=== PATIENT | female | born 1965 | race Caucasian/White ===

== ENCOUNTER 2023-01-04 09:40 | Emergency (ER) | payer BC, SELFPAY ==
[2023-01-04 09:47] VITALS: BP 146/98; PULSE 69; RESP 20; TEMP 36.7; O2SAT 97; BMI 40.2
--- NOTE | 2023-01-04 09:53 | ED.ABDPAIN1 ---
HPI - Abdominal Pain General Chief Complaint: Abdominal Pain Stated Complaint: LOWER ABDOMINAL PAIN RADIATING TO BACK Time Seen by Provider: 01/04/23 09:49 Source: patient Mode of arrival: walk-in History of Present Illness HPI narrative: 57-year-old female presents for low abdominal pain. She had five bowel movements yesterday, no diarrhea. She does not have dysuria or hematuria. The pain started yesterday and it's been getting worse. No fever or vomiting or diarrhea. The pain is moderate. Related Data Home Medications Medication Instructions Recorded Confirmed atorvastatin 80 mg tablet mg 01/04/23 levothyroxine 137 mcg tablet mcg 01/04/23 lorazepam 0.5 mg tablet mg 01/04/23 paroxetine HCl 40 mg tablet mg PO 01/04/23 ropinirole 3 mg tablet mg 01/04/23 Previous Rx's Medication Instructions Recorded ciprofloxacin HCl 500 mg tablet 500 mg PO Q12H #20 tabs 01/04/23 (Cipro) metronidazole 500 mg tablet 500 mg PO Q8H #30 tabs 01/04/23 Allergies Allergy/AdvReac Type Severity Reaction Status Date / Time No Known Drug Allergies Allergy Verified 01/04/23 09:47 Review of Systems ROS Narrative A ten point review of systems is negative except as noted above. Exam Narrative Exam Narrative: Nurses note and vital signs reviewed and patient is not hypoxic. General: The patient appears well and in no apparent distress. Skin: Warm, dry, no pallor noted. There is no rash noted. Head: Normocephalic, atraumatic Eye: Normal conjunctiva, no drainage Ears, Nose, Mouth, and Throat: oral mucosa is moist. Nares patent. Cardiovascular: Regular Rate and Rhythm Respiratory: Patient is in no distress, no accessory muscle use, lungs are clear to auscultation, no wheezing, rales or rhonchi Back: non-tender GI: tenderness bilateral in the lower abdomen. Musculoskeletal: The patient has no evidence of calf tenderness, no pitting edema, symmetrical pulses noted bilaterally Neurological: A&O, normal speech Psychiatric: Cooperative Constitutional Vital Signs, click to edit/add: Last Vital Signs Temp 98.0 F 01/04/23 09:47 Pulse 69 01/04/23 09:47 Resp 20 01/04/23 09:47 BP 146/98 H 01/04/23 09:47 Pulse Ox 97 01/04/23 09:47 O2 Del Method Room Air 01/04/23 09:47 Course Vital Signs Vital signs: Vital Signs Temperature 98.0 F 01/04/23 09:47 Pulse Rate 69 01/04/23 09:47 Respiratory Rate 20 01/04/23 09:47 Blood Pressure 146/98 H 01/04/23 09:47 Pulse Oximetry 97 01/04/23 09:47 Oxygen Delivery Method Room Air 01/04/23 09:47 Temperature 98.0 F 01/04/23 09:47 Pulse Rate 69 01/04/23 09:47 Respiratory Rate 20 01/04/23 09:47 Blood Pressure 146/98 H 01/04/23 09:47 Pulse Oximetry 97 01/04/23 09:47 Oxygen Delivery Method Room Air 01/04/23 09:47 MDM - Abdominal Pain MDM Narrative Medical decision making narrative: uncomplicated diverticulitis is identified. She was given IV Cipro and Flagyl here and prescribed same for home. She'll follow-up with her doctor in a week. Treatment diagnosis and follow-up were discussed with the patient. Differential Diagnosis Differential diagnosis: Likely abdominal pain, acute appendicitis, constipation, diverticulitis, gastroenteritis and small bowel obstruction Lab Data Attestation: I reviewed the patient's lab results. Labs: Lab Results 01/04/23 01/04/23 Range/Units 10:10 10:17 WBC 8.0 (4.0-11.0) 10^3/uL RBC 4.02 L (4.20-5.40) 10^6/uL Hgb 12.0 (12.0-16.0) g/dL Hct 35.7 L (36.0-48.0) % MCV 88.8 (81.0-99.0) fL MCH 29.9 (26.7-34.0) pg MCHC 33.6 (29.9-35.2) g/dL RDW 13.2 (11.0-15.0) % Plt Count 312 (150-450) 10^3/uL MPV 9.1 L (9.5-13.5) fL Neut % (Auto) 66.3 (43.0-75.0) % Lymph % (Auto) 26.9 (20.5-60.0) % [place] % (Auto) 4.6 (1.7-12.0) % Eos % (Auto) 1.2 (0.9-7.0) % Baso % (Auto) 0.4 (0.2-2.0) % Neut # (Auto) 5.3 (1.4-6.5) 10^3/uL Lymph # (Auto) 2.2 (1.2-3.8) 10^3/uL [place] # (Auto) 0.4 (0.3-0.8) 10^3/uL Eos # (Auto) 0.1 (0.0-0.7) 10^3/uL Baso # (Auto) 0.0 (0.0-0.1) 10^3/uL Abs Immat Gran (auto) 0.05 H (0.00-0.03) 10^3/uL Imm/Tot Granulo (auto) 0.6 H (0.0-0.5) % Sodium 137 (136-145) mmol/L Potassium 3.9 (3.5-5.1) mmol/L Chloride 103 (98-107) mmol/L Carbon Dioxide 26.2 (21.0-32.0) mmol/L Anion Gap 11.7 BUN 14.0 (7.0-18.0) mg/dL Creatinine 0.68 (0.55-1.02) mg/dL Est GFR ( Amer) >60 (>=60) Est GFR (Non-Af Amer) >60 (>=60) BUN/Creatinine Ratio 20.6 Glucose 101 (74-106) mg/dL Calcium 8.5 (8.5-10.1) mg/dL Urine Color Lt. yellow (YELLOW) Urine Clarity Clear (CLEAR) Urine pH 6.5 (5.0-9.0) Ur Specific [place] 1.010 (1.005-1.025) Urine Protein Negative (NEG/TRACE) mg/dL Urine Glucose (UA) Negative (NEGATIVE) mg/dL Urine Ketones Negative (NEGATIVE) mg/dL Urine Occult Blood Negative (NEGATIVE) Urine Nitrite Negative (NEGATIVE) Urine Bilirubin Negative (NEGATIVE) Urine Urobilinogen 0.2 (0.2-1.0) EU/dL Ur Leukocyte Esterase Negative (NEGATIVE) Urine RBC None seen (0-2) #/HPF Urine WBC None seen (NONE SEEN) #/HPF Ur Squamous Epith Cells Few A (NONE/RARE) #/LPF Urine Bacteria Small A (NONE SEEN) #/HPF Urine Mucus None seen (NONE SEEN) Imaging Data CT scan - abdomen: Radiologist's impression: Procedure: CT abdomen pelvis w con CT abdomen and pelvis with contrast CLINICAL: low abd pain COMPARISON: None. TECHNIQUE: Computed tomography of the abdomen and pelvis was performed following the uneventful administration of 100 cc Omnipaque 300 intravenous contrast. Dose reduction: mA and/or kV are adjusted by automated exposure control software based on patient size. FINDINGS: There is a short segment of focal inflammation involving the sigmoid to the left lower quadrant (image 96 series 3) with background of moderate to severe diverticulosis, compatible with acute diverticulitis. Proximal diverticular disease also noted. There is moderate colonic stool burden. Small bowel is normal. Stomach is also grossly normal. There is a normal appendix. Liver, spleen, pancreas, and gallbladder is normal in appearance. No radiopaque gallstones. Adrenal glands are normal. Kidneys are symmetrical and normal in appearance, with note made of a 2 cm cyst in the anterior right kidney. Bladder is normal. Uterus identified. No adnexal abnormality. There is atherosclerosis of the abdominal aorta. Few pelvic phleboliths. Anterior and posterior spinal fusion with instrumentation at L4-L5. There are degenerative spurs of the thoracolumbar spine. No compression fracture. No listhesis. Tiny fat-containing umbilical hernia. Limited imaging of lower chest demonstrates mild right middle lobe and lingular atelectasis with otherwise clear lung bases. Heart size is normal. IMPRESSION: 1. Short segment of acute proximal sigmoid diverticulitis, uncomplicated. No abscess or free air. Moderate colonic stool burden with mild diverticular disease in the proximal colon. 2. Normal appendix. 3. 2 cm left renal cysts, with otherwise normal appearance of the solid organs of the abdomen. 4. Postsurgical changes with anterior and posterior spinal fusion L4-L5. Additional incidental findings as described. Electronically authenticated by: RACQUEL YIN Date: 01/04/2023 11:41 Discharge Plan Discharge Chief Complaint: Abdominal Pain Clinical Impression: Diverticulitis Patient Disposition: Home, Self-Care Time of Disposition Decision: 12:48 Condition: Good Mode of Transportation: Private Vehicle Prescriptions / Home Meds: New ciprofloxacin HCl [Cipro] 500 mg tablet 500 mg PO Q12H Qty: 20 0RF metronidazole 500 mg tablet 500 mg PO Q8H Qty: 30 0RF No Action ropinirole 3 mg tablet lorazepam 0.5 mg tablet paroxetine HCl 40 mg tablet PO levothyroxine 137 mcg tablet atorvastatin 80 mg tablet Instructions: Diverticulitis (ED), Diverticulitis Diet (ED) Additional Instructions: see your doctor in one week, return to Emergency Department for worsening symptoms Stand Alone Forms: Portal Instructions Referrals: TOBI JOHNSON [Primary Care Provider] - 1 week
[2023-01-04 10:36] LABS: Anion Gap 11.7; BUN Creatinine Ratio 20.6; Calcium 8.5 mg/dL (8.5-10.1); Carbon Dioxide 26.2 mmol/L (21.0-32.0); Chloride 103 mmol/L (98-107); Estimated GFR (African America >60 (>=60); Estimated GFR (Non-African Ame >60 (>=60); Glucose 101 mg/dL (74-106); Potassium 3.9 mmol/L (3.5-5.1); Sodium 137 mmol/L (136-145)
[2023-01-04 10:37] LABS: Basophils Percent Auto 0.4 % (0.2-2.0); Eosinophils Absolute Auto 0.1 10^3/uL (0.0-0.7); Eosinophils Percent Auto 1.2 % (0.9-7.0); Hematocrit 35.7 % (36.0-48.0); Immature Granulocytes Abs Auto 0.05 10^3/uL (0.00-0.03); Immature Granulocytes Pct Auto 0.6 % (0.0-0.5); Lymphocytes Absolute Auto 2.2 10^3/uL (1.2-3.8); Lymphocytes Percent Auto 26.9 % (20.5-60.0); Mean Corpuscular HGB Conc 33.6 g/dL (29.9-35.2); Mean Corpuscular Hemoglobin 29.9 pg (26.7-34.0); Mean Corpuscular Volume 88.8 fL (81.0-99.0); Mean Platelet Volume 9.1 fL (9.5-13.5); Monocytes Absolute Auto 0.4 10^3/uL (0.3-0.8); Monocytes Percent Auto 4.6 % (1.7-12.0); Neutrophils Absolute Auto 5.3 10^3/uL (1.4-6.5); Neutrophils Percent Auto 66.3 % (43.0-75.0); Platelet Count 312 10^3/uL (150-450); Red Blood Count 4.02 10^6/uL (4.20-5.40); Red Cell Distribution Width 13.2 % (11.0-15.0)
[2023-01-04 10:39] LABS: Bilirubin Urine NEGATIVE (NEGATIVE); Blood Urine NEGATIVE (NEGATIVE); Clarity Urine CLEAR (CLEAR); Color Urine LT. YELLOW (YELLOW); Glucose Urine UA NEGATIVE (NEGATIVE); Ketones Urine NEGATIVE (NEGATIVE); Leukocyte Esterase Urine NEGATIVE (NEGATIVE); Nitrite Urine NEGATIVE (NEGATIVE); Protein Urine NEGATIVE (NEG/TRACE); Urobilinogen Urine 0.2 EU/dL (0.2-1.0); pH Urine 6.5 (5.0-9.0)
[2023-01-04 10:49] LABS: Bacteria Urine SMALL #/HPF (NONE SEEN); Mucus Urine NONE SEEN (NONE SEEN); RBC Urine NONE SEEN #/HPF (0-2); Squamous Epithelial Cell Urine FEW #/LPF (NONE/RARE); WBC Urine NONE SEEN #/HPF (NONE SEEN)
[2023-01-04] MEDS: METRONIDAZOLE/SODIUM CHLORIDE 500 MG/100 ML PREMIX 100 MG IV (12:01)
[2023-01-04] MEDS: CIPROFLOXACIN IN 5 % DEXTROSE 400 MG/200 ML PIGGYBACK 200 MG IV (13:05)
[2023-01-04 13:07] VITALS: BP 121/85; PULSE 73; RESP 14; TEMP 37.2; O2SAT 98
== END 2023-01-04 14:15 | disposition home or self-care (01) ==
PROVIDERS: Emergency Provider Emergency Medicine; PCP Nurse Practitioner Family
DX: K57.32 Diverticulitis of large intestine without perforation or abscess without bleeding (principal); Z79.899 Other long term (current) drug therapy; Z79.890 Hormone replacement therapy
CPT/HCPCS: 36415; 74177; 80048; 81001; 85025; 96365; 96367; 99285; Q9967

== ENCOUNTER 2024-07-10 22:16 | Emergency (ER) | payer BC, SELFPAY ==
[2024-07-10 22:19] VITALS: BP 148/72; PULSE 93; TEMP 37.8; O2SAT 99; BMI 47.6
--- NOTE | 2024-07-10 22:51 | ED_ITS ---
HPI - Abdominal Pain General Chief Complaint: Abdominal Pain Stated Complaint: other Time Seen by Provider: 07/10/24 22:22 Source: patient Mode of arrival: walk-in Limitations: no limitations History of Present Illness HPI narrative: This 58-year-old female presents for evaluation of left lower quadrant abdominal pain with abdominal distention and then sensation that everything is falling out of her uterus and rectum. The patient states she was diagnosed with diverticulitis in the past. She started having some abdominal pain last Sunday and her symptoms improved until yesterday when her pain worsened. She is having soft stools but denies any blood in her stool. She has urinary frequency and urgency. She denies any flank pain. Is no chest pain or shortness of breath. She was noted to have a low-grade fever upon arrival. Related Data Home Medications ?Medication ?Instructions ?Recorded ?Confirmed levothyroxine 137 mcg tablet 137 mcg PO DAILY 01/04/23 07/10/24 paroxetine HCl 40 mg tablet 40 mg PO DAILY 01/04/23 07/10/24 ropinirole 3 mg tablet 3 mg PO DAILY 01/04/23 07/10/24 Allergies Allergy/AdvReac Type Severity Reaction Status Date / Time No Known Drug Allergies Allergy Verified 07/10/24 22:23 Review of Systems ROS Status of ROS 10 or more systems reviewed and unremark able except as noted in history and below PFSH PFSH Social History Little interest or pleasure in doing things: not at all Feeling down, depressed, or hopeless: not at all Exam Narrative Exam Narrative: Vital signs and Nursing Notes reviewed: Patient has a low-grade fever at 100.1, she has a normal pulse, blood pressure is elevated 148/72, she is not hypoxic with pulse ox of 99% on room air General: Awake, alert, oriented, nontoxic but uncomfortable appearing ov erweight female lying on her right side, no respiratory distress HEENT: Normocephalic atraumatic, mucous membranes are moist and pink, eyes are clear, normal conjunctiva, vision is grossly intact Neck: Supple, no meningeal signs Chest: Lungs are clear to auscultation with good air entry, there is no wheezing rhonchi or rales appreciated no accessory muscle use, patient is speaking in com plete sentences-no chest wall tenderness to palpation CVS: Regular rate and rhythm S1-S2, no murmurs rubs or gallops, pulses are brisk and equal bilaterally ABD: Obese, soft, diffusely tender, localizes to the right lower quadrant and more so to the left lower quadrant with voluntary guarding Extremities: Moving all extremities, no lower extremity tenderness or swelling noted, negative Homans' sign, pulses are brisk and equal bilaterally Skin: Normal in appearance without rash,pallor, petechiae or purpura Neuro: No focal deficits Constitutional Vital Signs, click to edit/add: Last Vital Signs Temp 98.8 F 07/11/24 00:36 Pulse 93 H 07/11/24 00:36 Resp 18 07/11/24 00:36 BP 143/82 H 07/11/24 00:36 Pulse Ox 94 L 07/11/24 00:36 O2 Del Method Room Air 07/11/24 00:36 Course Vital Signs Vital signs: Vital Signs Temperature 100.1 F 07/10/24 22:19 Pulse Rate 93 H 07/10/24 22:19 Respiratory Rate 18 07/10/24 22:19 Blood Pressure 148/72 H 07/10/24 22:19 Pulse Oximetry 99 07/10/24 22:19 Oxygen Delivery Method Room Air 07/10/24 22:19 Temperature 98.8 F 07/11/24 00:36 Pulse Rate 93 H 07/11/24 00:36 Respiratory Rate 18 07/11/24 00:36 Blood Pressure 143/82 H 07/11/24 00:36 Pulse Oximetry 94 L 07/11/24 00:36 Oxygen Delivery Method Room Air 07/11/24 00:36 MDM - Abdominal Pain MDM Narrative Medical decision making narrative: This 58-year-old female with a history of diverticulitis in the past presents for evaluation of abdominal pain that started a week ago. She had leftover antibiotics that she started taking when she started having abdominal pain but her pain increased over the course of the last 1 to 2 days. Upon arrival she was extremely uncomfortable with generalized abdominal pain that localized to the right and left lower quadrant. She has noted to have a low-grade fever. ER septic protocol was instituted. An IV was placed and she was medicated with a liter of normal saline, Tylenol for her fever, morphine and Zofran. Routine labs including CBC with differential, comprehensive metabolic profile, 2 sets of blood cultures urinalysis and lactic acid was ordered. She has a normal white count and hemoglobin. Electrolytes are normal with a mild elevation in her BUN and creatinine. Liver function tests are normal. Lactic acid is normal. She was given additional liter of normal saline. Her 30 cc/kg fluid bolus is 1620 based on an ideal body weight of 54 kg. On reevaluation she stated she was feeling better was able to fall asleep after the morphine. CT scan of the abdomen and pelvis with IV contrast. It shows inflammatory changes in the left lower quadrant consistent with acute diverticulitis involving the proximal sigmoid colon with mild sigmoid colon diverticulosis, fatty infiltration of the liver, no acute process seen in the gallbladder spleen pancreas adrenal glands or kidneys. Small midpole left renal cortical cyst. Left colon diverticulosis. Normal appendix, small right and left inguinal hernias containing only fat, no acute process seen in the uterus or bladder. Mild constipation involving the right colon and transverse colon segments. There is no free air or abscess or pneumatosis. No portal venous gas. No bowel or renal obstruction. The results of the patient's labs and CT scan were discussed with her. While awaiting the CAT scan report she was given an additional dose of morphine. She would like to be discharged home. She will be given her first dose of Cipro and Flagyl in the emergency department. She will be discharged home with prescriptions for Cipro and Flagyl to take for the next 10 days as well as Colace and Zofran and Lawrence. She was encouraged to return the emergency department immediately for worsening pain, inability to tolerate her medications or any concerns. Lab Data Labs: Lab Results 07/10/24 07/10/24 Range/Units 22:35 23:00 WBC 10.8 (4.0-11.0) 10^3/uL RBC 4.23 (4.20-5.40) 10^6/uL Hgb 12.6 (12.0-16.0) g/dL Hct 37.8 (36.0-48.0) % MCV 89.4 (81.0-99.0) fL MCH 29.8 (26.7-34.0) pg MCHC 33.3 (29.9-35.2) g/dL RDW 13.7 (11.0-15.0) % Plt Count 354 (150-450) 10^3/uL MPV 9.1 L (9.5-13.5) fL Neut % (Auto) 73.6 (43.0-75.0) % Lymph % (Auto) 19.2 L (20.5-60.0) % [place] % (Auto) 4.9 (1.7-12.0) % Eos % (Auto) 1.3 (0.9-7.0) % Baso % (Auto) 0.3 (0.2-2.0) % Neut # (Auto) 7.9 H (1.4-6.5) 10^3/uL Lymph # (Auto) 2.1 (1.2-3.8) 10^3/uL [place] # (Auto) 0.5 (0.3-0.8) 10^3/uL Eos # (Auto) 0.1 (0.0-0.7) 10^3/uL Baso # (Auto) 0.0 (0.0-0.1) 10^3/uL Abs Immat Gran (auto) 0.08 H (0.00-0.03) 10^3/uL Imm/Tot Granulo (auto) 0.7 H (0.0-0.5) % Sodium 141 (136-145) mmol/L Potassium 4.2 (3.5-5.1) mmol/L Chloride 104 (98-107) mmol/L Carbon Dioxide 29.2 (21.0-32.0) mmol/L Anion Gap 12.0 BUN 21.0 H (7.0-18.0) mg/dL Creatinine 1.03 H (0.55-1.02) mg/dL Est GFR ( Amer) >60 (>=60 mL/min/1.73m^2) Est GFR (Non-Af Amer) 55 L (>=60 mL/min/1.73m^2) BUN/Creatinine Ratio 20.4 Glucose 111 H (74-106) mg/dL Lactate 0.8 (0.4-2.0) mmol/L Calcium 8.4 L (8.5-10.1) mg/dL Total Bilirubin 0.2 (0.2-1.0) mg/dL AST 14 L (15-37) U/L ALT 29 (14-59) U/L Alkaline Phosphatase 103 (46-116) U/L Total Protein 6.9 (6.4-8.2) g/dL Albumin 3.4 (3.4-5.0) g/dL Globulin 3.5 g/dL Albumin/Globulin Ratio 1.0 Urine Color Lt. yellow (YELLOW) Urine Clarity Clear (CLEAR) Urine pH 6.0 (5.0-9.0) Ur Specific [place] 1.020 (1.005-1.025) Urine Protein Negative (NEG/TRACE) mg/dL Urine Glucose (UA) Negative (NEGATIVE) mg/dL Urine Ketones Negative (NEGATIVE) mg/dL Urine Occult Blood Negative (NEGATIVE) Urine Nitrite Negative (NEGATIVE) Urine Bilirubin Negative (NEGATIVE) Urine Urobilinogen 0.2 (0.2-1.0) EU/dL Ur Leukocyte Esterase Negative (NEGATIVE) Urine RBC 0-2 (0-2) #/HPF Urine WBC 0-2 A (NONE SEEN) #/HPF Ur Squamous Epith Cells Few A (NONE/RARE) #/LPF Urine Crystals None seen (None Seen) #/HPF Urine Bacteria Trace A (NONE SEEN) #/HPF Urine Casts None seen (NONE SEEN) #/LPF Urine Mucus None seen (NONE SEEN) Ur Culture Indicated? No Discharge Plan Discharge Chief Complaint: Abdominal Pain Clinical Impression: Diverticulitis Patient Disposition: Home, Self-Care Time of Disposition Decision: 02:02 Condition: Good Prescriptions / Home Meds: No Action ropinirole 3 mg tablet 3 mg PO DAILY paroxetine HCl 40 mg tablet 40 mg PO DAILY levothyroxine 137 mcg tablet 137 mcg PO DAILY Print Language: Welsh Instructions: Diverticulitis (ED), Diverticulitis Diet (ED) Referrals: TOBI JOHNSON [Primary Care Provider] - 1 week
[2024-07-10 22:56] LABS: Bilirubin Urine NEGATIVE (NEGATIVE); Blood Urine NEGATIVE (NEGATIVE); Clarity Urine CLEAR (CLEAR); Color Urine LT. YELLOW (YELLOW); Glucose Urine UA NEGATIVE (NEGATIVE); Ketones Urine NEGATIVE (NEGATIVE); Leukocyte Esterase Urine NEGATIVE (NEGATIVE); Nitrite Urine NEGATIVE (NEGATIVE); Protein Urine NEGATIVE (NEG/TRACE); Urobilinogen Urine 0.2 EU/dL (0.2-1.0)
[2024-07-10 23:02] LABS: WBC Urine 0-2 #/HPF (NONE SEEN)
[2024-07-10 23:03] LABS: Bacteria Urine TRACE #/HPF (NONE SEEN); Cast Seen? NONE SEEN #/LPF (NONE SEEN); Crystals Seen? None Seen #/HPF (None Seen); Mucus Urine NONE SEEN (NONE SEEN); RBC Urine 0-2 #/HPF (0-2); Squamous Epithelial Cell Urine FEW #/LPF (NONE/RARE); Urine Culture Indicated NO
--- NOTE | 2024-07-10 23:12 | PC.NURSE ---
pt to CT via stretcher at this time.
[2024-07-10 23:18] LABS: Basophils Percent Auto 0.3 % (0.2-2.0); Eosinophils Absolute Auto 0.1 10^3/uL (0.0-0.7); Eosinophils Percent Auto 1.3 % (0.9-7.0); Hematocrit 37.8 % (36.0-48.0); Hemoglobin 12.6 g/dL (12.0-16.0); Immature Granulocytes Abs Auto 0.08 10^3/uL (0.00-0.03); Immature Granulocytes Pct Auto 0.7 % (0.0-0.5); Lymphocytes Absolute Auto 2.1 10^3/uL (1.2-3.8); Lymphocytes Percent Auto 19.2 % (20.5-60.0); Mean Corpuscular HGB Conc 33.3 g/dL (29.9-35.2); Mean Corpuscular Hemoglobin 29.8 pg (26.7-34.0); Mean Corpuscular Volume 89.4 fL (81.0-99.0); Mean Platelet Volume 9.1 fL (9.5-13.5); Monocytes Absolute Auto 0.5 10^3/uL (0.3-0.8); Monocytes Percent Auto 4.9 % (1.7-12.0); Neutrophils Absolute Auto 7.9 10^3/uL (1.4-6.5); Neutrophils Percent Auto 73.6 % (43.0-75.0); Platelet Count 354 10^3/uL (150-450); Red Blood Count 4.23 10^6/uL (4.20-5.40); Red Cell Distribution Width 13.7 % (11.0-15.0); White Blood Count 10.8 10^3/uL (4.0-11.0)
[2024-07-10 23:33] LABS: Alanine Aminotransferase 29 U/L (14-59); Albumin Level 3.4 g/dL (3.4-5.0); Alkaline Phosphatase 103 U/L (46-116); Aspartate Amino Transferase 14 U/L (15-37); BUN Creatinine Ratio 20.4; Bilirubin Total 0.2 mg/dL (0.2-1.0); Calcium 8.4 mg/dL (8.5-10.1); Carbon Dioxide 29.2 mmol/L (21.0-32.0); Chloride 104 mmol/L (98-107); Estimated GFR (African America >60 (>=60 mL/min/1.73m^2); Estimated GFR (Non-African Ame 55 (>=60 mL/min/1.73m^2); Globulin 3.5 g/dL; Glucose 111 mg/dL (74-106); Potassium 4.2 mmol/L (3.5-5.1); Sodium 141 mmol/L (136-145); Total Protein 6.9 g/dL (6.4-8.2)
[2024-07-10 23:35] LABS: Lactate/Lactic Acid 0.8 mmol/L (0.4-2.0)
[2024-07-10] MEDS: 0.9 % SODIUM CHLORIDE 1,000 ML 999 ML IV (23:41)
[2024-07-10] MEDS: ACETAMINOPHEN 325 MG TABLET 650 MG PO (23:43)
[2024-07-10] MEDS: ONDANSETRON PF 4 MG/2 ML VIAL IV (23:44)
[2024-07-10] MEDS: MORPHINE SULFATE 4 MG/ML VIAL IV (23:46)
[2024-07-10 23:59] VITALS: O2SAT 97
[2024-07-11 00:36] VITALS: BP 143/82; PULSE 93; TEMP 37.1; O2SAT 94
[2024-07-11] MEDS: 0.9 % SODIUM CHLORIDE 1,000 ML 1000 ML IV (00:48)
[2024-07-11] MEDS: MORPHINE SULFATE 4 MG/ML VIAL IV (01:47)
[2024-07-11] MEDS: METRONIDAZOLE/SODIUM CHLORIDE 500 MG/100 ML PREMIX 100 MG IV (02:13)
[2024-07-11] MEDS: CIPROFLOXACIN IN 5 % DEXTROSE 400 MG/200 ML PREMIX 200 MG IV (02:14)
--- NOTE | 2024-07-12 13:44 | PC.NURSE ---
Patient called ER stating that medications are causing itching from head to toe. Patient was started on Flagyl and Cipro on 07/11. Dr. Lewis requested patient to stop taking both antibiotics and Augmentin was ordered. Patient states understanding and knows to come to ER if symptoms worsen.
== END 2024-07-11 03:52 | disposition home or self-care (01) ==
PROVIDERS: Emergency Provider Emergency Medicine; PCP Nurse Practitioner Family
DX: K57.32 Diverticulitis of large intestine without perforation or abscess without bleeding (principal); R50.9 Fever, unspecified
CPT/HCPCS: 36415; 74177; 80053; 81001; 83605; 85025; 87040; 96365; 96368; 96375; 96376; 99284; J0744; J1836; J2270; J2405; Q9967

== ENCOUNTER 2024-08-27 07:04 | Emergency (ER) | payer BC, SELFPAY ==
--- OUTSIDE RECORDS SUMMARY | 2024-08-26 12:11 | XMS_ITS | Encounter Summary ---
Author Organization [facility] s tem Address [id number] [address] [place] [address] Care Team Providers Care Molder Closed Molds Name Role Phone Starr Solorio APRN-BAG MAKER Primary Care Provider + Reason for Visit * Reason Comments Abdominal Pain H.o of diverticuliti s. Started Sunday morning. Constipated. C/o pain. No nausea or diarrhea. Encounter Details Date Type Department Care Team (Late st Contact Info) Description 08/26/2024 12:11 PM EDT - 08/26/2024 1:43 PM EDT Emergency [facility] - Emergency [address] [place] [address] Discharge Disposition: Left Without Treatment Social History Tobacco Use Types Packs/Day Years Used Date Smoking Tobacco: Former Cigarettes Vaping/E-cigarettes Smokeless Tobacco: Never Alcohol Use Standard Drinks/Week Comments Never 0 (1 standard drink = 0.6 oz pur e alcohol) PHQ-2 Answer Date Recorded Total Score 0 07/30/2024 Childcare Answer Date Recorded Childcare Unknown 09/04/2018 Employment Answer Date Recorded Employment Unknown 09/04/2018 Hunger Screening Answer Date Recorded Within the past 12 months we worried whether our food would run out before we got money to buy more. Never True 08/26/2024 Within the past 12 months th e food we bought just didn't last and we didn't have money to get more. Never True 08/26/2024 Purpose - Life Answer Date Recorded Purpose and direction in life Unknown Comments Unknown Sex and Gender Information Value Date Recorded Sex Assigned at Not on file Legal Sex Female 4:48 PM EST Gender Identity Not on file Sexual Orientation Not on file documented as of this encounter Last Filed Vital Signs Vital Sign Reading Time Taken Comments Blood Pressure 164/108 08/26/2024 12:18 PM EDT Pulse 98 08/26/2024 12:17 PM EDT Temperature 37.2 C (99 F) 08/26/2024 12:17 PM EDT Respiratory Rate 16 08/26/2024 12:17 PM EDT Oxygen Saturation 99% 08/26/2024 12:17 PM EDT Inhaled Oxygen Concentration - - Weight 116.6 kg (257 lb) 08/26/2024 12:17 PM EDT Height 157.5 cm (5' 2 ) 08/26/2024 12:17 PM EDT Body Mass Index 47.01 08/26/2024 12:17 PM EDT documented in this encounter Medications at Time of Discharge atorvastatin (LIPITOR) 20 mg tablet Take 1 tablet (20 mg total) by mouth in the morning. 90 tablet 1 06/26/2024 brompheniramine-ps eudoeph-DM 2-30-10 mg/5 mL syrupIndications:A cute cough Take 5 mL by mouth 4 (four) times a day as needed for allergies. 120 mL 07/30/2024 levothyroxine (SYNTHROID, LEVOTHROID) 175 MCG tablet LORazepam (ATIVAN) 0.5 mg tabletIndications: Anxiety Take 1 tablet (0.5 mg total) by mouth daily as needed for anxiety. 30 tablet 06/19/2024 methylPREDNISolone (MEDROL, FLAKO,) 4 mg tabletIndications: Upper respiratory tract infection, unspecified type Take 1 tablet (4 mg total) by mouth in the morning. follow package directions. 21 tablet 07/30/2024 PARoxetine (PAXIL) 40 mg tabletIndications: Anxiety disorder, unspecified TAKE 1 TABLET BY MOUTH EVERY DAY IN THE MORNING 90 tablet 1 05/30/2024 rOPINIRole (REQUIP) 3 mg tablet TAKE 1 TABLET BY MOUTH NIGHTLY 90 tablet 1 08/25/2024 documented as of this encounter Plan of Treatment Not on file documented as of this encounter Visit Diagnoses Not on filedocumented in this encounter Additional Health Concerns Assessment Noted Time PHQ-9 Depression Total Score: 0 07/31/19 25 9:59 AM EDT A Body Mass Index follow-up plan has been documented for the patient 07/30/2024 10:31 AM EDT documented as of this encounter Care Teams Molder Closed Molds Relationship Specialty Start Date End Date Starr Solorio, QUENTIN-BAG MAKER [address] [place] [address] PCP - General Internal Medicine 05/17/21 documented as of this encounter
--- OUTSIDE RECORDS SUMMARY | 2024-08-27 07:07 | XMS_ITS | Encounter Summary ---
Author Organization [facility] [employer] Sys [employer] Address [id number] [address] [place] [address] Care Team Providers Care Pipe Inspector Name Role Phone OsminStarr APRN-GAS FITTER APPRENTICE Primary Care Provider + Encounter Details Date Type Department Care Team (Late st Contact Info) Description 07/14/2024 [facility]phone [facility] [address] [address] Emily Hinton CMA Social History Tobacco Use Types Packs/Day Years Used Date Smoking Tobacco: Former Cigarettes Vaping/E-cigarettes Smokeless Tobacco: Never Alcohol Use Standard Drinks/Week Comments Never 0 (1 standard drink = 0.6 oz pur e alcohol) PHQ-2 Answer Date Recorded Total Score 0 06/19/2024 Childcare Answer Date Recorded Childcare Unknown 09/04/2018 Employment Answer Date Recorded Employment Unknown 09/04/2018 Hunger Screening Answer Date Recorded Within the past 12 months we worried whether our food would run out before we got money to buy more. Never True 06/19/2024 Within the past 12 months th e food we bought just didn't last and we didn't have money to get more. Never True 06/19/2024 Purpose - Life Answer Date Recorded Purpose and direction in life Unknown Comments Unknown Sex and Gender Information Value Date Recorded Sex Assigned at Not on file Legal Sex Female 4:48 PM EST Gender Identity Not on file Sexual Orientation Not on file documented as of this encounter Miscellaneous Notes * Telephone Encounter - Emily Hinton CMA - 07/14/2024 10:19 AM EDT Patient called states she had a allergic reaction to some antibiotics that she got put on from [facility] this past Sunday.They gave her another antibiotic since and now has developed another different kind of rash. Could you send her in maybe some cream to put on the rash. I did book her a follow up visit with you on the 24 at 1500. Pharmacy is listed and correct. * Telephone Encounter - DALLAS Dyson - 07/14/2024 10:19 AM EDT She needs to be seen for a rash - I cannot diagnose through mychart. She can see another provider if can get her in before if needed. * Telephone Encounter - Emily Hinton CMA - 07/14/2024 10:19 AM EDT I called pt she is doing better. She will keep follow up appt with you on . documented in this encounter Plan of Treatment Not on file documented as of this encounter Visit Diagnoses Not on filedocumented in this encounter Additional Health Concerns Assessment Noted Time PHQ-9 Depression Total Score: 0 06/20/19 25 8:41 AM EDT A Body Mass Index follow-up plan has been documented for the patient 10/20/2022 12:37 PM EDT documented as of this encounter Care Teams Pipe Inspector Relationship Specialty Start Date End Date Starr Solorio APRN-CNP [address] [place] [address] PCP - General Internal Medicine 05/17/21 documented as of this encounter
--- OUTSIDE RECORDS SUMMARY | 2024-08-27 07:07 | XMS_ITS | Clinical Summary ---
Author Organization [facility] Healthcare Address [address] [place] [address] Care Team Providers Care Pillar Worker Name Role Phone Starr Solorio MD Unavailable Bert Lopez MD Primary Care Provider [phone] Allergies No known active allergies Medications levothyroxine (Synthroid, Levoxyl) 175 MCG tablet Active PARoxetine (Paxil) 40 MG tablet Take 1 tablet by mouth in the morning. 12/28/2022 Active rOPINIRole (Requip) 3 MG tablet Take 1 tablet by mouth at bedtime 03/20/2023 Active LORazepam (Ativan) 0.5 MG tablet Take 0.5 mg by mouth Daily as needed 03/22/2023 Active Active Problems No known active problems Family History Medical History Relation Name Comments Cancer Father Heart disease Mother Relation Name Status Comments Father Mother Social History Tobacco Use Types Packs/Day Years Used Date Smoking Tobacco: Never Smokeless Tobacco: Never Tobacco Cessation:Counseling Given: Not Answered Comments:PT VAPES Comments Unknown Sex and Gender Information Value Date Recorded Sex Assigned at Not on file Legal Sex Female 6:53 PM EDT Gender Identity Female 06/07/2022 6:53 PM EDT Sexual Orientation Not on file Last Filed Vital Signs Vital Sign Reading Time Taken Comments Blood Pressure 120/88 05/01/2018 12:00 PM EST Pulse - - Temperature - - Respiratory Rate - - Oxygen Saturation - - Inhaled Oxygen Concentration - - Weight 105 kg (232 lb) 05/02/2023 2:27 PM EST Height 157.5 cm (5' 2 ) 05/02/2023 2:27 PM EST Body Mass Index 42.43 05/02/2023 2:27 PM EST Plan of Treatment Not on file Insurance [employer] Care Teams Pillar Worker Relationship Specialty Start Date End Date Bert Lopez MD PCP - General Internal Medicine 04/13/23 Starr Solorio MD Referring Physician Family Medicine 04/13/23
--- OUTSIDE RECORDS SUMMARY | 2024-08-27 07:07 | XMS_ITS | Clinical Summary ---
Author Organization [facility] Address [address] [place] [address] Care Team Providers Care Inserter Promotional Item Name Role Phone Unavailable Primary Care Provider Unavailabl e Social History Tobacco Use Types Packs/Day Years Used Date Smoking Tobacco: Never Assessed Comments Unknown Sex and Gender Information Value Date Recorded Sex Assigned at Not on file Legal Sex Female 3:42 PM EST Gender Identity Not on file Sexual Orientation Not on file Plan of Treatment Not on file Insurance [facility]
--- OUTSIDE RECORDS SUMMARY | 2024-08-27 07:07 | XMS_ITS | Encounter Summary ---
Author Organization [facility] [employer] [facility] Address [id number] [address] [place] [address] Care Team Providers Care Packing Machine Feeder Name Role Phone OsminJefe guerrerobell Briones APRN-FLAT SURFACER JEWEL Primary Care Provider + Encounter Details Date Type Department Care Team (Late st Contact Info) Description 10/20/2022 [facility]phone [facility] [address] [address] Taryn Matt CMA Social History Tobacco Use Types Packs/Day Years Used Date Smoking Tobacco: Former Cigarettes Vaping/E-cigarettes Smokeless Tobacco: Never Alcohol Use Standard Drinks/Week Comments Never 0 (1 standard drink = 0.6 oz pur e alcohol) PHQ-2 Answer Date Recorded Total Score 0 10/20/2022 Childcare Answer Date Recorded Childcare Unknown 09/04/2018 Employment Answer Date Recorded Employment Unknown 09/04/2018 Hunger Screening Answer Date Recorded Within the past 12 months we worried whether our food would run out before we got money to buy more. Never True 10/05/2022 Within the past 12 months th e food we bought just didn't last and we didn't have money to get more. Never True 10/05/2022 Purpose - Life Answer Date Recorded Purpose and direction in life Unknown Comments Unknown Sex and Gender Information Value Date Recorded Sex Assigned at Not on file Legal Sex Female 4:48 PM EST Gender Identity Not on file Sexual Orientation Not on file documented as of this encounter Miscellaneous Notes * Telephone Encounter - Taryn Matt CMA - 10/20/2022 11:03 AM EDT This patient is scheduled for her Screening Colonoscopy on Nov 03 at 12:45pm. Please send her [employer] to [place] she has the coupon and will pay for it if need be. documented in this encounter Plan of Treatment Not on file documented as of this encounter Visit Diagnoses Not on filedocumented in this encounter Additional Health Concerns Assessment Noted Time PHQ-9 Depression Total Score: 0 10/21/19 23 9:47 AM EDT A Body Mass Index follow-up plan has been documented for the patient 10/20/2022 12:37 PM EDT documented as of this encounter Care Teams Packing Machine Feeder Relationship Specialty Start Date End Date Starr Solorio, FIRST ASSISTANT-FLAT SURFACER JEWEL [address] [place] [address] PCP - General Internal Medicine 05/17/21 documented as of this encounter
--- OUTSIDE RECORDS SUMMARY | 2024-08-27 07:07 | XMS_ITS | Encounter Summary ---
Author Organization [facility] Address [id number] [address] [place] [address] Care Team Providers Care Windshield Wiper Repairer Name Role Phone Starr Solorio APRN-MANUFACTURING ENGINEER MACHINING Primary Care Provider + Reason for Visit * Reason Comments Med Refill Encounter Details Date Type Department Care Team (Late st Contact Info) Description 08/24/2024 Refill [facility] Internal Medicine - Family Medicine [address] [place] [address] Starr Solorio APRNMANUFACTURING ENGINEER MACHINING [address] [place] [address] Social History Tobacco Use Types Packs/Day Years [...] on file documented as of this encounter Plan of Treatment Not on file documented as of this encounter Visit Diagnoses Not on filedocumented in this encounter Additional Health Concerns Assessment Noted Time PHQ-9 Depression Total Score: 0 07/31/19 25 9:59 AM EDT A Body Mass Index follow-up plan has been documented for the patient 07/30/2024 10:31 AM EDT documented as of this encounter Care Teams Windshield Wiper Repairer Relationship Specialty Start Date End Date Starr Solorio, IGNITION MECHANIC-MANUFACTURING ENGINEER MACHINING [address] [place] [address] PCP - General Internal Medicine 05/17/21 documented as of this encounter
--- OUTSIDE RECORDS SUMMARY | 2024-08-27 07:07 | XMS_ITS | Encounter Summary ---
Author Organization [facility] Address [facility] [id number] [address] [place] [address] Care Team Providers Care Cook Frozen Dessert Name Role Phone Starr Solorio APRN-NATURAL RESOURCES SPECIALIST Primary Care Provider + Encounter Details Date Type Department Care Team (Late st Contact Info) Description 10/23/2022 Orders Only [facility] Internal Medicine - Family Medicine [address] [place] [address] Bert Lopez, [address] [place] [address] Colon cancer screening (Primary Dx) Social History Tobacco Use Types Packs/Day Years [...] documented as of this encounter Visit Diagnoses Diagnosis Colon cancer screening- Primary Special screening for malignant neoplasms, colon documented in this encounter Additional Health Concerns Assessment Noted Time PHQ-9 Depression Total Score: 0 10/21/19 9:47 AM EDT A Body Mass Index follow-up plan has been documented for the patient 10/20/2022 12:37 PM EDT documented as of this encounter Care Teams Cook Frozen Dessert Relationship Specialty Start Date End Date Starr Solorio, QUALITY COMPLIANCE MANAGER-NATURAL RESOURCES SPECIALIST [address] [place] [address] PCP - General Internal Medicine 05/17/21 documented as of this encounter
--- OUTSIDE RECORDS SUMMARY | 2024-08-27 07:07 | XMS_ITS | Encounter Summary ---
Author Organization [facility] [employer] [facility] Address [id number] [address] [place] [address] Care Team Providers Care Retail Marketing Executive Name Role Phone OmsinStarr guerrero Anselmo SAAVEDRA-EXTENSION WORKER Primary Care Provider + Encounter Details Date Type Department Care Team (Late st Contact Info) Description 03/14/2023 Refill [facility] Internal [facility] - Family Medicine [address] [place] [phone] Emily Hinton CMA Anxiety Social History Tobacco Use Types Packs/Day Years [...] Telephone Encounter - Emily Hinton CMA - 03/14/2023 8:20 AM EST Pt called and would like a refill on Lorazepam her pharmacy is listed and correct. * Telephone Encounter - SHERRI Desai - 03/14/2023 8:20 AM EST This is a controlled substance, she usually sees Brittney and she hasn't been seen since September, she really needs an apt before it is refilled, she can either have a telehealth with me today to refill it or an apt with Brittney tomorrow or Sunday but it can't be refilled without an apt - Jennifer * Telephone Encounter - Sussy Garcia - 03/14/2023 8:20 AM EST She has appt March 29, is that okay or does It need to be sooner? * Telephone Encounter - SHERRI Desai - 03/14/2023 8:20 AM EST If she wants her lorazepam sooner it needs to be sooner it won't be filled until she has an apt - Jennifer documented in this encounter Plan of Treatment Not on file documented as of this encounter Visit Diagnoses Diagnosis Anxiety Anxiety state, unspecified documented in this encounter Additional Health Concerns Assessment Noted Time PHQ-9 Depression Total Score: 0 10/21/19 9:47 AM EDT A Body Mass Index follow-up plan has been documented for the patient 10/20/2022 12:37 PM EDT documented as of this encounter Care Teams Retail Marketing Executive Relationship Specialty Start Date End Date Starr Solorio APRN-RADHA [address] [place] [address] PCP - General Internal Medicine 05/17/21 documented as of this encounter
--- OUTSIDE RECORDS SUMMARY | 2024-08-27 07:07 | XMS_ITS | Encounter Summary ---
Author Organization [employer] [facility] Address [facility] [id number] [address] [place] [address] Care Team Providers Care Wet End Supervisor Name Role Phone Osmin, Starr Briones APRN-ASSISTED LIVING MANAGER Primary Care Provider + Reason for Visit * Reason Onset Date Comments Med Refill 01/30/2022 Encounter Details Date Type Department Care Team (Late st Contact Info) Description 01/30/20[facility] Medicine [address] [place] [phone] Miriam Bailon MA Anxiety (Primary Dx) Social History Tobacco Use Types Packs/Day Years Used Date Smoking Tobacco: Former Cigarettes Vaping/E-cigarettes Smokeless Tobacco: Never Alcohol Use Standard Drinks/Week Comments Never 0 (1 standard drink = 0.6 oz pur e alcohol) Childcare Answer Date Recorded Childcare Unknown 09/04/2018 Employment Answer Date Recorded Employment Unknown 09/04/2018 Purpose - Life Answer Date Recorded Purpose and direction in life Unknown Comments Unknown Sex and Gender Information Value Date Recorded Sex Assigned at Not on file Legal Sex Female 4:48 PM EST Gender Identity Not on file Sexual Orientation Not on file documented as of this encounter Miscellaneous Notes * Telephone Encounter - Miriam Bailon MA - 01/30/2022 12:26 PM EST Patient said the Ropinirole needs a 90 day supply sent to [facility] in [place]. The Lorazepam needs sent to [facility] in [place]. documented in this encounter Plan of Treatment Not on file documented as of this encounter Visit Diagnoses Diagnosis Anxiety- Primary Anxiety state, unspecified documented in this encounter Care Teams Wet End Supervisor Relationship Specialty Start Date End Date Starr Solorio APRN-ASSISTED LIVING MANAGER [address] [place] [address] PCP - General Internal Medicine 05/17/21 documented as of this encounter
--- OUTSIDE RECORDS SUMMARY | 2024-08-27 07:07 | XMS_ITS | Encounter Summary ---
Author Organization [employer] Address [facility] [id number] [address] [place] [address] Care Team Providers Care Bankruptcy Paralegal Name Role Phone Osmin, Starr Briones APRN-SIGNALS COLLECTION TECHNICIAN Primary Care Provider + Encounter Details Date Type Department Care Team (Latest Contact Info) Description 08/26/2024 Travel Social History Tobacco Use Types Packs/Day Years [...] Time PHQ-9 Depression Total Score: 0 07/31/19 9:59 AM EDT A Body Mass Index follow-up plan has been documented for the patient 07/30/2024 10:31 AM EDT documented as of this encounter Care Teams Bankruptcy Paralegal Relationship Specialty Start Date End Date Strar Solorio, STOVE MECHANIC-SIGNALS COLLECTION TECHNICIAN [address] [place] [address] PCP - General Internal Medicine 05/17/21 documented as of this encounter
--- OUTSIDE RECORDS SUMMARY | 2024-08-27 07:07 | XMS_ITS | Encounter Summary ---
Author Organization [employer] [facility] [employer] Address [facility] [id number] [address] [place] [address] Care Team Providers Care Two Needle Machine Operator Name Role Phone Starr Solorio Primary Care Provider + Reason for Visit * Reason Onset Date Comments Med Refill 01/16/2022 Encounter Details Date Type Department Care Team (Late st Contact Info) Description 01/16/2022 Refill [facility] Internal Medicine - Family Medicine [address] [place] [address] Miriam Bailon MA Social History Tobacco Use Types Packs/Day Years [...] Diagnoses Not on filedocumented in this encounter Care Teams Two Needle Machine Operator Relationship Specialty Start Date End Date Starr Solorio APRN-CNP [address] [place] [address] PCP - General Internal Medicine 05/17/21 documented as of this encounter
--- OUTSIDE RECORDS SUMMARY | 2024-08-27 07:07 | XMS_ITS | Encounter Summary ---
Author Organization [facility] Address [facility] [place]-[id number] [address] [place] [address] Care Team Providers Care Soil Tester Name Role Phone Starr Solorio Anselmo SAAVEDRA-ELECTRICAL ASSEMBLY TECHNICIAN Primary Care Provider + Encounter Details Date Type Department Care Team (Late st Contact Info) Description 01/04/2023 Orders Only [facility] Internal [facility] - Family Medicine [address] [facility] [place] [phone] Ref Prov, [place] [address] Social History Tobacco Use Types Packs/Day Years [...] on file documented as of this encounter Procedures Procedure Name Priority Date/Time Associated Diagnosis Comments CT ABDOMEN AND PELVIS W CONT Routine 01/04/2023 2:36 PM EDT documented in this encounter Results * CT abdomen and pelvis with contrast (01/04/2023 2:36 PM EDT) Anatomical Region Laterality Modality Body, Abdomen, Body Covera N/A Compu vickie Tomography us Not In System Ref Prov IMG CT ORDERABLES Final R esult documented in this encounter Visit Diagnoses Not on filedocumented in this encounter Additional Health Concerns Assessment Noted Time PHQ-9 Depression Total Score: 0 10/21/19 23 9:47 AM EDT A Body Mass Index follow-up plan has been documented for the patient 10/20/2022 12:37 PM EDT documented as of this encounter Care Teams Soil Tester Relationship Specialty Start Date End Date Starr Solorio APRN-ELECTRICAL ASSEMBLY TECHNICIAN [address] [place] [address] PCP - General Internal Medicine 05/17/21 documented as of this encounter
--- OUTSIDE RECORDS SUMMARY | 2024-08-27 07:08 | XMS_ITS | Encounter Summary ---
Author Organization [employer] [facility] [employer] Address [facility][id number] [address] [place] [address] Care Team Providers Care Senior Systems Analyst Name Role Phone OsminStarr APRN-ENTRY LEVEL SOFTWARE ENGINEER Primary Care Provider + Reason for Visit * Reason Onset Date Comments Med Refill 11/14/2023 Encounter Details Date Type Department Care Team (Late st Contact Info) Description 11/14/[address] [facility] Family Medicine [address] [place] [phone] Winter, Hazel, LAMP SHADE SEWER Anxiety disorder, unspecified; Anxiety Social History Tobacco Use Types Packs/Day Years Used Date Smoking Tobacco: Former Cigarettes Vaping/E-cigarettes Smokeless Tobacco: Never Alcohol Use Standard Drinks/Week Comments Never 0 (1 standard drink = 0.6 oz pur e alcohol) PHQ-2 Answer Date Recorded Total Score 0 03/22/2023 Childcare Answer Date Recorded Childcare Unknown 09/04/2018 Employment Answer Date Recorded Employment Unknown 09/04/2018 Hunger Screening Answer Date Recorded Within the past 12 months we worried whether our food would run out before we got money to buy more. Never True 03/22/2023 Within the past 12 months th e food we bought just didn't last and we didn't have money to get more. Never True 03/22/2023 Purpose - Life Answer Date Recorded Purpose and direction in life Unknown Comments Unknown Sex and Gender Information Value Date Recorded Sex Assigned at Not on file Legal Sex Female 4:48 PM EST Gender Identity Not on file Sexual Orientation Not on file documented as of this encounter Miscellaneous Notes * Telephone Encounter - DALLAS Dyson - 11/14/2023 10:37 AM EDT I have not seen patient for 8 months and can not refill her lorazepam until she is seen. documented in this encounter Plan of Treatment Not on file documented as of this encounter Visit Diagnoses Diagnosis Anxiety disorder, unspecified Anxiety Anxiety state, unspecified documented in this encounter Additional Health Concerns Assessment Noted Time PHQ-9 Depression Total Score: 0 03/22/20 23 2:18 PM EST A Body Mass Index follow-up plan has been documented for the patient 10/20/2022 12:37 PM EDT documented as of this encounter Care Teams Senior Systems Analyst Relationship Specialty Start Date End Date Starr Solorio APRN-CNP [address] [place] [address] PCP - General Internal Medicine 05/17/21 documented as of this encounter
--- OUTSIDE RECORDS SUMMARY | 2024-08-27 07:08 | XMS_ITS | Encounter Summary ---
Author Organization [employer] [facility] [employer] Address [id number] [address] [place] [address] Care Team Providers Care Drum Operator Name Role Phone Osmin, Starr Briones APRN-AUDIT ANALYST Primary Care Provider + Reason for Visit * Reason Onset Date Comments Med Refill 09/06/2023 Encounter Details Date Type Department Care Team (Late st Contact Info) Description 09/06/[address] [facility] Medicine [address] [place] [address] Winter, Hazel, ASSISTANT EXECUTIVE HOUSEKEEPER Social History Tobacco Use Types Packs/Day Years [...] encounter Miscellaneous Notes * Telephone Encounter - Sussy Garcia - 09/06/2023 1:19 PM EDT [facility] documented in this encounter Plan of Treatment Not on file documented as of this encounter Visit Diagnoses Not on filedocumented in this encounter Additional Health Concerns Assessment Noted Time PHQ-9 Depression Total Score: 0 03/22/20 23 2:18 PM EST A Body Mass Index follow-up plan has been documented for the patient 10/20/2022 12:37 PM EDT documented as of this encounter Care Teams Drum Operator Relationship Specialty Start Date End Date Starr Solorio, RESERVATIONS SALES SUPERVISOR-AUDIT ANALYST [address] [place] [address] PCP - General Internal Medicine 05/17/21 documented as of this encounter
--- OUTSIDE RECORDS SUMMARY | 2024-08-27 07:08 | XMS_ITS | CCD ---
Author Organization [facility] Care Team Providers Care Compressor Repairer Name Role Phone ANISA, DR GARBER Attending Unavailable ANISA, DR GARBER Admitting Unavailable MISC, DR RIVERA Primary Care Unavailable SYED, DR NEL Givens Consulting Unavailable ANISA, DR GARBER Consulting Unavailable HERRERAANIC, DR CHAMBERLAIN Attending Unavailable STEPANIC, DR CHAMBERLAIN Admitting Unavailable ALEX, TOBI Primary Care Unavailable STEPANIC, DR CHAMBERLAIN Consulting Unavailable Crystal Haney Consulting Unavailable ALEX, TOBI Admitting Unavailable ALEX, [facility] Primary Care Unavailable ALEX, TOBI Attending Unavailable SYED, DR NEL Givens Consulting [facility] Unavailable JCARLOS HAYDEN Attending Unavailable JCARLOS HAYDEN Admitting Unavailable MISC, DR RIVERA Primary Care Unavailable ALEX, [facility] Primary Care Unavailable ABDIEL JAUREGUI Admitting Unavailable ANISA, DR GARBER Consulting Unavailable ABDIEL JAUREGUI Attending Unavailable LUIS RUDD Consulting Unavailable ALEX, TOBI Primary Care Unavailable BRIANNA, DR GONZALEZ Consulting Unavailable BRIANNA, DR GONZALEZ Attending Unavailable BRIANNA, DR GONZALEZ Admitting Unavailable DULCE RUTLEDGE Consulting Unavailable TERRA CRUZ Consulting Unavailable Abhi Griffin Consulting Unavailable ALEX, TOBI Primary Care Unavailable JCARLOS HAYDEN Consulting Unavailable JCARLOS HAYDEN Attending Unavailable JCARLOS HAYDEN Admitting Unavailable ALEX, TOBI Primary Care Unavailable JEREMIAS LUX Attending Unavailable JEREMIAS LUX Admitting Unavailable DR KAYLYN GILL Consulting Unavailable MELYSSA, DR KRISTAN Ott Consulting Unavailable JEREMIAS LUX Consulting Unavailable JUDY BARAJAS Consulting Unavailable JCARLOS HAYDEN Consulting Unavailable TOMASZ GARDINER Consulting Unavailable ALEX, TOBI Primary Care Unavailable JCARLOS HAYDEN Consulting Unavailable JCARLOS HAYDEN Attending Unavailable JCARLOS HAYDEN Admitting Unavailable DEE MYLES Consulting Unavailable Alex DE LA CRUZ Tobi Unavailable Bert Lopez MD Primary Care Provider JCARLOS LANGE Attending Unavailable JCARLOS LANGE Referring Unavailable JR. BENITEZ GEORGE C Attending Unavaila ble JCARLOS LANGE Attending Unavailable JCARLOS LANGE Referring Unavailable ALEX, TOBI L Primary Care Unavailable JCARLOS LANGE Referring Unavailable ALEX, TOBI L Primary Care Unavailable JCARLOS LANGE Attending Unavailable JCARLOS LANGE Referring Unavailable ALEX, TOBI L Primary Care Unavailable Alex RETREAD BUILDER-[employer]OU[employer] ADMINISTRATOR, Tobi L Primary Care Provider Alex [facility], Tobi L Primary Care Provider ALEX, TOBI L Referring Unavailable ALEX, TOBI L Primary Care Unavailable VERONICA MURRELL Attending Unavailable ALEX, TOBI L Referring Unavailable ALEX, TOBI L Primary Care Unavailable ALEX, TOBI L Attending Unavailable ALEX, TOBI L Referring Unavailable ALEX, TOBI L Primary Care Unavailable Allergies Allergy Classification Reported Allergen(s) Allergy Type Date of Onset Reaction(s) Facility (9 sources) QUEtiapine; Translations: [QUETIAPINE] Drug Allergy 02-11-2021 [facility] (3 sources) Ciprofloxacin; Translations: [CIPROFLOXACIN] Drug Allergy 07-30-2024 [facility] (3 sources) metroNIDAZOLE; Translations: [METRONIDAZOLE] Drug Allergy 07-30-2024 [facility] Medications Current Medications Medication Drug Class(es) Dates Sig (Normalized) Sig (Original) atorvastatin 20 mg oral tablet (4 sources) HMG-CoA Reductase Inhibitor Start: 5 take 1 tablet by mouth in the morning atorvastatin (LIPITOR) 20 mg tablet Take 1 tablet (20 mg total) by mouth in the morning. 90 tablet 1 06/26/2024 Active azithromycin 250 mg oral tablet (1 source) Macrolide Antimicrobial Start: 5 End: 5 azithromycin (ZITHROMAX) 250 mg tablet Indications: Upper respiratory tract infection, unspecified type Take 2 tablets the first day, then 1 tablet daily for 4 days. 6 tablet 07/30/2024 08/03/2024 Active brompheniramine maleate 0.4 mg/ml / dextromethorphan hydrobromide 2 mg/ml / pseudoephedrine hydrochloride 6 mg/ml oral solution (2 sources) alpha-Adrenergic Agonist, Uncompetitive A-zxycbm-Y-asparta te Receptor Antagonist, Sigma-1 Agonist Start: 5 take 5 mL by mouth four times daily as needed brompheniramine-pseud oeph-DM 2-30-10 mg/5 mL syrup Indications: Acute cough Take 5 mL by mouth 4 (four) times a day as needed for allergies. 120 mL 07/30/2024 Active LORazepam 0.5 mg oral tablet (11 sources) Benzodiazepine Start: 3 End: 5 take 1 tablet by mouth once daily as needed for anxiety LORazepam (ATIVAN) 0.5 mg tablet Indications: Anxiety Take 1 tablet (0.5 mg total) by mouth daily as needed for anxiety. 30 tablet 06/19/2024 Active methylPREDNISolone 4 mg oral tablet (4 sources) Corticosteroid Start: take 1 tablet by mouth in the morning methylPREDNISolone (MEDROL, FLAKO,) 4 mg tablet Indications: Upper respiratory tract infection, unspecified type Take 1 tablet (4 mg total) by mouth in the morning. follow package directions. 21 tablet 07/30/2024 Active Start: 05-02-2023 End: 05-02-2023 take 1 tablet by mouth once methylPREDNISolone (Medrol Dospak) 4 MG tablets Indications: Acute pain of left knee Take 1 tablet (4 mg) by mouth 1 (one) time for 1 dose Use as directed by package instructions 21 tablet 0 05/02/2023 05/02/2023 Active PARoxetine hydrochloride 40 mg oral tablet (11 sources) Serotonin Reuptake Inhibitor Start: 11-15-2023 End: 05-30-2024 take 1 tablet by mouth once daily in the morning PARoxetine (PAXIL) 40 mg tablet Indications: Anxiety disorder, unspecified TAKE 1 TABLET BY MOUTH EVERY DAY IN THE MORNING 90 tablet 1 05/30/2024 Active Start: 12-28-2022 take 1 tablet by blanca th in the morning PARoxetine (Paxil) 40 MG tablet Take 1 tablet by mouth in the morning. 0 12/28/2022 Active rOPINIRole 3 mg oral tablet (11 sources) Nonergot Dopamine Agonist Start: 08-25-2024 take 1 tablet by mouth once daily rOPINIRole (REQUIP) 3 mg tablet TAKE 1 TABLET BY MOUTH NIGHTLY 90 tablet 1 08/25/2024 Active Start: 03-03-2024 End: 08-25-2024 take 1 tablet by mouth once daily rOPINIRole (REQUIP) 3 mg tablet TAKE 1 TABLET BY MOUTH NIGHTLY 90 tablet 1 03/03/2024 08/25/2024 Discontinued Start: 03-20-2023 take 1 tablet by blanca th at bedtime rOPINIRole (Requip) 3 MG tablet Take 1 tablet by mouth at bedtime 0 03/20/2023 Active Completed/Discontinued Medications Medication Drug Class(es) Dates Sig (Normalized) Sig (Original) levothyroxine sodium 0.137 mg oral tablet (11 sources) l-Thyroxine Start: 07-20-2022 End: 06-19-2024 take 1 tablet by mouth in the morning levothyroxine (SYNTHROID, LEVOTHROID) 137 MCG tablet Indications: Hypothyroidism, unspecified Take 1 tablet (137 mcg total) by mouth in the morning. 90 tablet 1 07/20/2022 06/19/2024 Discontinued (Therapy completed) levothyroxine (S YNTHROID, LEVOTHROID) 175 MCG tablet Active sod sulf-pot chloride-mag roche lf 1.479-0.188- 0.225 gram tablet (2 sources) Start: 10-23-2022 End: 06-19-2024 sod sulf-pot chloride-mag roche lf 1.479-0.188- 0.225 gram tablet Indications: Colon cancer screening Take 12 tablets twice a day as per instructions 24 tablet 10/23/2022 06/19/2024 Discontinued (Therapy completed) Start: 10-23-2022 sod sulf-pot c hloride-mag sulf 1.479-0.188- 0.225 gram tablet Indications: Colon cancer screening Take 12 tablets twice a day as per instructions 24 tablet 10/23/2022 Active Problems Active Problems Problem Classification Problem Date Documented Date Episodic/Chronic Anxiety disorders (17 sources) Anxiety disorder, unspecified; Translations: [Anxiety disorder] Onset: 02-23-2015 05-28-2024 Chronic Disorders of lipid metabolism (16 sources) Pure hypercholesterolemia, unspecified; Translations: [Mixed hyperlipidemia] Onset: 12-01-2015 09-08-2022 Chronic Essential hypertension (3 sources) Essential hypertension; Translations: [Essential (primary) hypertension] Onset: 06-19-2024 06-19-2024 Chronic Fever of unknown origin (3 sources) Fever; Translations: [Fever, unspecified] Onset: 07-30-2024 07-30-2024 Episodic Joint disorders and dislocations; trauma-related (10 sources) Unspecified internal derangement of left knee; Translations: [Derangement of left knee] Onset: 12-27-2020 Chronic Miscellaneous mental health disorders (6 sources) Primary insomnia; Translations: [Primary insomnia] Onset: 10-10-2017 12-01-2021 Chronic Mood disorders (1 source) Major depressive disorder, single episode, unspecified; Translations: [DANIELA DEPRESS D/O SINGLE EPIS UNS] Onset: 08-09-2020 Chronic Osteoarthritis (6 sources) Osteoarthritis of knee; Translations: [Osteoarthritis of knee, unspecified] Onset: 02-11-2021 12-01-2021 Chronic Other connective tissue disease (2 sources) History of left total knee replacement; Translations: [Presence of left artificial knee joint] 05-02-2023 Chronic Other connective tissue disease (6 sources) Artificial knee joint present; Translations: [Presence of unspecified artificial knee joint] Onset: 12-01-2021 12-01-2021 Chronic Other connective tissue disease (6 sources) History of total knee arthroplasty; Translations: [Presence of left artificial knee joint] Onset: 12-01-2021 12-01-2021 Chronic Other connective tissue disease (4 sources) Pain in right lower leg; Translations: [PAIN IN RIGHT LOWER LEG] Onset: 06-06-2021 Episodic Other hereditary and degenerative nervous system conditions (1 source) Restless legs; Translations: [Restless legs syndrome] 06-19-2024 Chronic Other hereditary and degenerative nervous system conditions (1 source) Restless legs syndrome; Translations: [Restless legs syndrome] Onset: 06-19-2024 Chronic Other lower respiratory disease (1 source) Cough; Translations: [Acute cough] 07-30-2024 Episodic Other nervous system disorders (6 sources) Difficulty walking; Translations: [Difficulty in walking, not elsewhere classified] Onset: 12-01-2021 12-01-2021 Chronic Other non-traumatic joint disorders (7 sources) Pain in left knee; Translations: [Pain in joint, lower leg] Onset: 12-18-2020 Episodic Other nutritional; endocrine; and metabolic disorders (1 source) Obesity, unspecified; Translations: [OBESITY UNSPECIFIED] Onset: 09-08-2020 Chronic Other nutritional; endocrine; and metabolic disorders (2 sources) Morbid (severe) obesity due to excess calories; Translations: [MORBID SEVERE OBES D/T EXCESS KAPIL] Onset: 08-09-2020 Chronic Other nutritional; endocrine; and metabolic disorders (2 sources) Body mass index (BMI) 45.0-49.9, adult; Translations: [BODY MASS INDEX BMI 45.0-49.9 ADULT] Onset: 08-09-2020 Chronic Other nutritional; endocrine; and metabolic disorders (6 sources) Body mass index 40+ - severely obese; Translations: [Morbid (severe) obesity due to excess calories] Onset: 06-07-2021 12-01-2021 Chronic Other nutritional; endocrine; and metabolic disorders (1 source) Severe obesity; Translations: [Class 3 severe obesity due to excess calories with serious comorbidity and body mass index (BMI) of 45.0 to 49.9 in adult ([facility])] 06-19-2024 Chronic Other upper respiratory infections (2 sources) Upper respiratory infection; Translations: [Acute upper respiratory infection, unspecified] Onset: 07-30-2024 07-30-2024 Episodic Residual codes; unclassified (1 source) Obstructive sleep apnea (adult) (pediatric); Translations: [OBSTRUCTIVE SLEEP APNEA] Onset: 08-09-2020 Chronic Residual codes; unclassified (6 sources) Obstructive sleep apnea syndrome; Translations: [Obstructive sleep apnea (adult) (pediatric)] Onset: 05-15-2016 12-01-2021 Chronic Substance-related disorders (7 sources) Nicotine dependence, cigarettes, uncomplicated; Translations: [Tobacco dependence syndrome] Onset: 02-23-2015 12-01-2021 Chronic Thyroid disorders (7 sources) Hypothyroidism, unspecified; Translations: [Hypothyroidism] Onset: 02-23-2015 12-01-2021 Chronic Unclassified (1 source) CONTACT W/AND (SUSP) EXPOS COVID-19; Translations: [CONTACT W/AND (SUSP) EXPOS COVID-19] Onset: 09-05-2020 Unclassified (1 source) Acute cough; Translations: [Acute cough] Onset: 07-30-2024 Unclassified (1 source) Obesity, class 3; Translations: [Obesity, class 3] Onset: 06-19-2024 Unclassified (1 source) controlled sub Onset: 06-19-2024 Past or Other Problems Problem Classification Problem Date Documented Da te Episodic/Chronic Joint disorders and dislocations; trauma-related (9 sources) Other tear of lateral meniscus, current injury, left knee, initial encounter; Translations: [Unspecified tear of unspecified meniscus, current injury, left knee, initial encounter] Onset: 08-17-2020 Episodic Mood disorders (6 sources) Mood disorders Onset: 03-22-2023 Resolved: 07-30-2024 03-22-2023 Other aftercare (1 source) Other ocean transportation intermediary (current) drug therapy; Translations: [OTH [facility] CURRENT DRUG THERAPY] Onset: 12-20-2020 Episodic Other and unspecified benign neoplasm (6 sources) Polyp of ascending colon; Translations: [Polyp of colon] Onset: 11-03-2022 11-03-2022 Episodic Other bone disease and musculoskeletal deformities (1 source) Chondromalacia, left knee; Translations: [CHONDROMALACIA LEFT KNEE] Onset: 09-08-2020 Episodic Other connective tissue disease (1 source) Synovial cyst of popliteal space [Medrano], left knee; Translations: [SYNOVIAL CYST POP SPACE LEFT KNEE] Onset: 08-12-2020 Episodic Other connective tissue disease (1 source) Arthrodesis status; Translations: [ARTHRODESIS STATUS] Onset: 08-09-2020 Episodic Other connective tissue disease (4 sources) Pain in left leg; Translations: [PAIN IN LEFT LEG] Onset: 07-28-2020 Episodic Other connective tissue disease (6 sources) Acquired trigger finger; Translations: [Trigger finger, unspecified finger] Onset: 04-10-2017 12-01-2021 Episodic Other connective tissue disease (6 sources) Pain in limb; Translations: [Pain in unspecified limb] Onset: 04-10-2017 12-01-2021 Episodic Other non-traumatic joint disorders (1 source) Effusion, left knee; Translations: [EFFUSION LEFT KNEE] Onset: 08-12-2020 Episodic Other screening for suspected conditions (not mental disorders or infectious disease) (8 sources) Patient encounter status; Translations: [Encounter for screening for malignant neoplasm of colon] Onset: 10-23-2022 10-23-2022 Episodic Spondylosis; intervertebral disc disorders; other back problems (6 sources) Lumbar disc prolapse with radiculopathy; Translations: [Intervertebral disc disorders with radiculopathy, lumbar region] Onset: 12-01-2021 12-01-2021 Episodic Sprains and strains (1 source) Strain of other muscle(s) and tendon(s) at lower leg level, left leg, initial encounter; Translations: [STRAIN OTH MSC TEND LOW LT LEG INIT] Onset: 08-12-2020 Episodic Thyroid disorders (3 sources) Atrophy of thyroid - acquired; Translations: [Atrophy of thyroid (acquired)] Onset: 12-01-2021 06-19-2024 Episodic Unclassified (6 sources) Onset: 10-20-2022 Resolved: 07-30-2024 10-20-2022 Results Test Name Value Interpretation Reference Range Facility POCT Influenza A/Influenza B /SARS-COV-2 Veritoron 07-30-2024 External Poct Influenza A Antigen Negative [facility] External Poct Influenza B Antigen Negative [facility] SARS-CoV-2 (COVID-19) Ag IA.rapid Ql (Resp) Negative [facility] COMPREHENSIVE METABOLIC PANE Kurt 06-19-2024 Albumin [Mass/Vol] 4.5 g/dL Normal 3.2-5.3 [facility] Comment on above: Performed By: #### C MAKEDA 38686-0, THYR #### [facility] ([id number]) [address], [address] [place] [address] ALP [Catalytic activity/Vol] 91 U/L Normal 39-130 [facility] Comment on above: Performed By: #### C MAKEDA 50654-6, THYR #### [facility] ([id number]) [address], [address] [place] [address] ALT [Catalytic activity/Vol] 21 U/L Normal 0-31 [facility] Comment on above: Performed By: #### C MAKEDA, 19814-2, THYR #### [facility] ([id number]) [address], [address] [place] [address] Anion gap [Moles/Vol] 11 mmol/L Normal 5-15 [facility] Comment on above: Performed By: #### C MAKEDA, 57895-1, THYR #### [facility] ([id number]) [address], [address] [place] [address] AST [Catalytic activity/Vol] 18 U/L Normal 0-41 [facility] Comment on above: Performed By: #### C MAKEDA, 45285-0, THYR #### [facility] ([id number]) [address], [address] [place] [address] Bilirubin [Mass/Vol] 0.4 mg/dL Normal 0.3-1.2 [facility] Comment on above: Performed By: #### C MAKEDA, 63787-2, THYR #### [facility] ([id number]) [address], [address] [place] [address] Calcium [Mass/Vol] 9.2 mg/dL Normal 8.5-10.5 [facility] Comment on above: Performed By: #### C MAKEDA, 87385-9, THYR #### [facility] ([id number]) [address], [address] [place] [address] Chloride [Moles/Vol] 104 mmol/L Normal 98-109 [facility] Comment on above: Performed By: #### C MAKEDA, 83228-0, THYR #### [facility] ([id number]) [address], [address] [place] [address] CO2 [Moles/Vol] 26 mmol/L Normal 22-32 [facility] Comment on above: Performed By: #### C MAKEDA, 55210-2, THYR #### [facility] ([id number]) [address], [address] [place] [address] Creatinine [Mass/Vol] 0.69 mg/dL Normal 0.40-1.00 [facility] Comment on above: Result Comment: METH OD TRACEABLE TO IDMS STANDARD Performed By: #### C MAKEDA 08132-5, THYR #### [facility] ([id number]) [address], [address] [place] [address] eGFR (CKD-EPI) NON-RACE DEPENDENT >90 Normal >59 [facility] Comment on above: Result Comment: Reported eGFR is based on the CKD-EPI 2020 equation that does not use a race coefficient. Performed By: #### Isa Ernandez MP31-1, THYR #### [facility] ([id number]) [address], [address] [place] [address] Glucose [Mass/Vol] 92 mg/dL Normal 65-99 [facility] Comment on above: Performed By: #### Isa Ernandez MP31-1, THYR #### [facility] ([id number]) [address], [address] [place] [address] Potassium [Moles/Vol] 4.4 mmol/L Normal 3.5-5.0 [facility] Comment on above: Performed By: #### Oma ASHFORD 21623-3, THYR #### [facility] ([id number]) [address], [address] [place] [address] Protein [Mass/Vol] 7.5 g/dL Normal 6.0-8.0 [facility] Comment on above: Performed By: #### Isa Ernandez MP31-1, THYR #### [facility] ([id number]) [address], [address] [place] [address] Sodium [Moles/Vol] 141 mmol/L Normal 134-146 [facility] Comment on above: Performed By: #### Oma ASHFORD 59362-0, THYR #### [facility] ([id number]) [address], [address] [place] [address] Urea nitrogen [Mass/Vol] 18 mg/dL Normal 5-23 [facility] Comment on above: Performed By: #### C , 17984-7, THYR #### [facility] ([id number]) [address], [address] [place] [address] DRUG SCREEN, URINEon 025 AMPHETAMINE/METHAMP Negative Normal NEG [facility] Comment on above: Result Comment: AMPH /METH screening cut off = 1000 ng/mL Performed By: #### D ROCHE #### [facility] ([id number]) [address], [address] [place] [address] BARBITURATES Negative Normal NEG [facility] Comment on above: Result Comment: Keara iturates screening cut off value = 200 ng/mL Performed By: #### D ROCHE #### [facility] ([id number]) [address], [address] [place] [address] BENZODIAZEPINES Negative Normal NEG [facility] Comment on above: Result Comment: Cuong odiazepines screening cut off value = 200 ng/mL Performed By: #### D ROCHE #### [facility] ([id number]) [address], [address] [place] [address] CANNABINOIDS Negative Normal NEG [facility] Comment on above: Result Comment: Reina abinoids/THC screening cut off value = 50 ng/mL Performed By: #### D ROCHE #### [facility] ([id number]) [address], [address] [place] [address] COCAINE METABOLITE Negative Normal NEG [facility] Comment on above: Result Comment: Coca ine screening cut off value = 300 ng/mL Performed By: #### D ROCHE #### [facility] ([id number]) [address], [address] [place] [address] ECSTASY Negative Normal NEG [facility] Comment on above: Result Comment: Ecst asy screening cut off value = 500 ng/mL This report is intended for use in clinical monitoring or management of patients. Performed By: #### D ROCHE #### [facility] ([id number]) [address], [address] [place] [address] METHADONE Negative Normal NEG [facility] Comment on above: Result Comment: Meth adone screening cut off value = 300 ng/mL. Performed By: #### D ROCHE #### [facility] ([id number]) [address], [address] [place] [address] OPIATES Negative Normal NEG [facility] Comment on above: Result Comment: Opia mat screening cut off value = 300 ng/mL NOTE: This test is used for the detection of codeine, hydrocodone (>1000 ng/mL), morphine and hydromorphone (>900 ng/mL) in urine. Performed By: #### D ROCHE #### [facility] ([id number]) [address], [address] [place] [address] OXYCODONE Negative Normal NEG [facility] Comment on above: Result Comment: Oxyc odone screening cut off value = 300 ng/mL NOTE: This test is used for the detection of oxycodone and oxymorphone in urine. Performed By: #### D ROCHE #### [facility] ([id number]) [address], [address] [place] [address] PHENCYCLIDINE Negative Normal NEG [facility] Comment on above: Result Comment: Phen cyclidine screening cut off value = 25 ng/mL Performed By: #### D ROCHE #### [facility] ([id number]) [address], [address] [place] [address] Lipid 1996 panelon 5 Cholesterol [Mass/Vol] 332 mg/dL High 150-200 [facility] Comment on above: Performed By: #### C , 12355-8, THYR #### [facility] ([id number]) [address], [address] [place] [address] Cholesterol in HDL [Mass/Vol] 65 mg/dL Normal >39 [facility] Comment on above: Result Comment: HDL <40 mg/dL - High Risk HDL > or = 40mg/dL- Desirable HDL >60 mg/dL - Negative Risk Performed By: #### Oma ASHFORD, 51557-7, THYR #### [facility] ([id number]) [address], [address] [place] [address] Cholesterol in LDL [Mass/Vol] 233 mg/dL High <130 [facility] Comment on above: Result Comment: LDL <100 mg/dL - Desirable LDL >160 mg/dL - High Risk Performed By: #### Oma ASHFORD, 12000-4, THYR #### [facility] ([id number]) [address], [address] [place] [address] Cholesterol in VLDL [Mass/Vol] 34 mg/dL High 0-30 [facility] Comment on above: Performed By: #### Oma ASHFORD, 79461-6, THYR #### [facility] ([id number]) [address], [address] [place] [address] CHOLESTEROL:HDL 5.1 High 1.0-5.0 [facility] Comment on above: Performed By: #### Oma ASHFORD, 63946-9, THYR #### [facility] ([id number]) [address], [address] [place] [address] Triglyceride [Mass/Vol] 172 mg/dL High 27-150 [facility] Comment on above: Performed By: #### C MAKEDA, 26795-4, THYR #### [facility] ([id number]) [address], [address] [place] [address] THYROID PROFILEon 06-19-2024 Free T4 [Mass/Vol] 0.53 ng/dL Low 0.61-1.60 [facility] Comment on above: Performed By: #### C MAKEDA, 76225-1, THYR #### [facility] ([id number]) [address] [place] [address] TSH 4.66 uIU/mL Normal 0.49-4.67 [facility] Comment on above: Performed By: #### C MAKEDA, 42154-6, THYR #### [facility] ([id number]) [address], [address] [place] [address] NM BONE SCAN THREE PHASEon 0 04-28-2023 NM BONE SCAN THREE PHASE NM BONE SCAN THREE PHASE HISTORY: A 57-year-old female with the history of the left knee replacement. Complaining of the acute left knee pain. TECHNIQUE: Three-phase radionuclide bone imaging is performed by using 25.0 mCi of technetium 99m MDP. COMPARISON: Comparison is made with the left knee radiographs of 04/13/2023. FINDINGS: Flow study of the both knee joints reveals symmetrical uptake overlying the both knee joints. No evidence of focal increase uptake. Blood pool image reveals photopenic region in the left knee from knee replacement. There is focal area of increase uptake in the medial tibial condyle. Multiple delayed spot skeletal images of both knee joints are obtained. There is a total left knee replacement. There is a increase uptake in the medial and lateral tibial condyles of the left knee. Appearance is consistent with loosening of the tibial component of the left knee prosthesis. There is a [id number] degree of irregular increase uptake in right knee joint consistent with the degenerative arthritis. Images of the pelvis with lower extremities are obtained in anterior and posterior projections. There is a irregular increase uptake in the lower lumbar spine consistent with the degenerative arthritis. Degenerative changes are seen in the right ankle and feet. IMPRESSION: * Findings of the left knee joint is consistent with loosening of the tibial component of the left knee prosthesis. * Severe osteoarthritis involving the right knee joint. * Degenerative arthritis involving the right ankle and both feet. Finalized by Nam Barfield MD on 04/28/2023 11:10 AM Normal [facility] C-reactive proteinon 024 CRP [Mass/Vol] 0.7 mg/dL 0.000 - 0.744 mg/dL [facility] Comment on above: PERFORMED AT [facility] [address],[place] [address] CRP [Mass/Vol]on 04-27-2023 C REACTIVE PROTEIN 0.7 mg/dL Normal 0.000-0.744 [facility] Comment on above: Performed By: #### 1 988-5, [id number] #### [facility] ([id number]) [address], [address] [place] [address] [facility] ESR Photometric method (Bld) [Velocity]on 04-27-2023 ESR, ERYTHROCYTE SEDIMENTATION RATE 43 mm/h High 0-30 [facility] Comment on above: Performed By: #### 1 988-5, 87625-9 #### [facility] ([id number]) [address], [address] [place] [address] LIPID PANEL, STANDARDon 05 Cholesterol [Mass/Vol] 243 mg/dL High <200 [facility] Comment on above: Order Comment: FASTI NG:NO FASTING: NO Performed By: #### 7 600, [id number] #### [facility] [address], [address] [place] [address] Grade School Teacher: Curtis Llanos MD Cholesterol in HDL [Mass/Vol] 57 mg/dL Normal > OR = 50 [facility] Comment on above: Order Comment: FASTI NG:NO FASTING: NO Performed By: #### 7 600, [id number] #### [facility] [address], [address] [place] [address] Grade School Teacher: Curtis Llanos MD Cholesterol in LDL [Mass/Vol] 150 mg/dL High [facility] Comment on above: Order Comment: FASTI NG:NO FASTING: NO Result Comment: Refe rence range: <100 Desirable range <100 mg/dL for primary prevention; <70 mg/dL for patients with CHD or diabetic patients with > or = 2 CHD risk factors. LDL-C is now calculated using the Nancy calculation, which is a validated novel method providing better accuracy than the Friedewald equation in the estimation of LDL-C. Nabor SS et al. JEYSON. 2013;310(19): 5310-8820 (http://education.[employer]/faq/CED817) Performed By: #### 7 600, 77674 #### [facility] [address], [address] [place], [place] [id number] Grade School Teacher: Curtis Llanos MD Cholesterol.total/Ch olesterol in HDL [Mass ratio] 4.3 {ratio} Normal <5.0 [facility] Comment on above: Order Comment: FASTI NG:NO FASTING: NO Performed By: #### 7 600, 83601 #### [facility] [address], [address] [place], [place] [id number] Grade School Teacher: Curtis Llanos MD NON HDL CHOLESTEROL 186 mg/dL (calc) High <130 [facility] Comment on above: Order Comment: FASTI NG:NO FASTING: NO Result Comment: For patients with diabetes plus 1 major ASCVD risk factor, treating to a non-HDL-C goal of <100 mg/dL (LDL-C of <70 mg/dL) is considered a therapeutic option. Performed By: #### 7 600, [id number] #### [facility] [address], [address] [place], [place] [id number] Grade School Teacher: Curtis Llanos MD Triglyceride [Mass/Vol] 217 mg/dL High <150 [facility] Comment on above: Order Comment: FASTI NG:NO FASTING: NO Result Comment: If a non-fasting specimen was collected, consider repeat triglyceride testing on a fasting specimen if clinically indicated. Ruth et al. J. of Clin. Lipidol. 2015;9:129-169. Performed By: #### 7 600, [id number] #### [facility] [address], [address] [place] [address] Grade School Teacher: Curtis Llanos MD TSH+FREE T4on 08-13-2021 Free T4 [Mass/Vol] 0.9 ng/dL Normal 0.8-1.8 [facility] Comment on above: Performed By: #### 7 600, [id number] #### [facility] [address], [address] [place] [address] Grade School Teacher: Curtis Llanos MD TSH Qn 3.76 m[IU]/L Normal 0.40-4.50 [facility] Comment on above: Performed By: #### 7 600, 03737 #### [facility] [address], [address] [place] [address] Grade School Teacher: Curtis Llanos MD US JAMIE DOP LEG RTon 06-07-19 22 US JAMIE DOP LEG RT EXAM: US JAMIE DOP LEG RT HISTORY: Pain of right lower leg COMPARISON: None. FINDINGS: The right common femoral, greater saphenous, femoral, popliteal and lower extremity venous trifurcation are all color Doppler patent. Normal compressibility, augmentation and phasic flow is seen. IMPRESSION: No ultrasound findings of DVT within the imaged right lower extremity deep venous structures. Electronically authenticated by: CRYSTAL HANEY Date: 2021-06-06 20:20 Normal [facility] TSH+FREE T4on 01-05-2021 Free T4 [Mass/Vol] 1.1 ng/dL Normal 0.8-1.8 [facility] Comment on above: Order Comment: FASTI NG:UNKNOWN FASTING: UNKNOWN Performed By: #### 5 [id number] #### [facility] [address], [address] [place] [address] Grade School Teacher: Curtis Llanos MD TSH Qn 1.85 m[IU]/L Normal 0.40-4.50 [facility] Comment on above: Order Comment: FASTI NG:UNKNOWN FASTING: UNKNOWN Performed By: #### 5 [id number] #### [facility] [address], [address] [place], [place] [address] Grade School Teacher: Curtis Llanos MD MRI KNEE LT WO CONon 021 MRI KNEE LT WO CON EXAMINATION: MRI KNE E LT WO CON HISTORY: Derangement of knee COMPARISON: 08/06/2020 TECHNIQUE: A complete multi-planar MRI was performed. FINDINGS: MEDIAL COMPARTMENT MEDIAL MENISCUS: Increased signal in the anterior and posterior horn, grossly stable, myxoid degeneration favored. Partially extruded CARTILAGE: Mild chondromalacia BONES: Joint space narrowing with mild marginal osteophyte formation. Bone edema mid medial femoral condyle measuring 9 mm, sagittal image 21 MCL AND MEDIAL CAPSULE: Normal medial collateral ligament and medial capsule. LATERAL COMPARTMENT LATERAL MENISCUS: Linear signal abnormality in the anterior horn extending to the superior articular surface, body and posterior horn. Increased signal in the posterior horn likely myxoid degeneration CARTILAGE: No visible defect. BONES: No marrow pathology, fracture, or significant arthropathy. LCL/POSTEROLAT COMPLEX: Normal lateral collateral ligament, fascicles, lateral capsule and ligaments. ANTERIOR COMPARTMENT PATELLA: No marrow pathology, fracture, or significant arthropathy. CARTILAGE: No visible defect. TENDONS: Normal. EFFUSION: Small joint effusion, increased from the prior exam ACL: Increased signal, stable from the prior exam PCL: Normal appearing ligament. MENISCOFEMORAL: Normal meniscofemoral ligaments. OTHER: 5 cm popliteal cyst IMPRESSION: New small joint effusion Suspected complex tear of the lateral meniscus 9 mm bone edema medial femoral condyle Electronically authenticated by: NEL LYNCH Date: 2021-01-03 17:13 Normal [facility] XR KNEE LT 4V or >on 021 XR KNEE LT 4V or > EXAM: XR KNEE LT 4V or > INDICATION: Pain in left knee. COMPARISON: Radiograph on 08/03/2020. FINDINGS: The knee alignment is preserved. There is no acute fracture. The soft tissues are radiographically normal. There is minimal tricompartmental osteoarthritis. No significant joint effusion. IMPRESSION: No acute osseous abnormality. Minimal tricompartmental osteoarthritis. Electronically authenticated by: LUIS RUDD Date: 2020-12-19 13:02 Normal [facility] Covid-19 PCR (CVDTB)on SARS-CoV-2 (COVID-19) RNA RICHARD+probe Ql (Unsp spec) Not detected Normal NOT DETECTED [facility] Comment on above: Result Comment: This test is not yet approved or cleared by the [place] FDA. When there are no FDA-approved or cleared tests available, and other criteria are met, FDA can make tests available under an emergency access mechanism called an Emergency Use Authorization (EUA). The EUA for this test is supported by the [place] of Health and Human Service's (HHS's) declaration that circumstances exist to justify the emergency use of in vitro diagnostics for the detection and/or diagnosis of the virus that causes COVID-19. This EUA will remain in effect (meaning this test can be used) for the duration of the COVID-19 declaration justifying emergency of IVDs, unless it is terminated or revoked by FDA (after which the test may no longer be used). When diagnostic testing is negative, the possibility of a false negative should be considered in the context of a patient's recent exposures and the presence of clinical signs and symptoms consistent with SARS-CoV-2. Performed By: #### [facility] #### [facility] [address] [place] [address] Robles Grady MRI KNEE LT WO CONon 14-2 021 MRI KNEE LT WO CON EXAMINATION: MRI KNE E LT WO CON HISTORY: Pain in left knee COMPARISON: No relevant comparison available. TECHNIQUE: A complete multi-planar MRI was performed. FINDINGS: MEDIAL COMPARTMENT MEDIAL MENISCUS: Signal abnormality in the posterior horn suspicious but not definitive for a meniscal tear CARTILAGE: Mild to moderate chondromalacia BONES: No marrow pathology, fracture, or significant arthropathy. MCL AND MEDIAL CAPSULE: Normal medial collateral ligament and medial capsule. LATERAL COMPARTMENT LATERAL MENISCUS: No visible tear or significant degeneration. CARTILAGE: No visible defect. BONES: No marrow pathology, fracture, or significant arthropathy. LCL/POSTEROLAT COMPLEX: Normal lateral collateral ligament, fascicles, lateral capsule and ligaments. ANTERIOR COMPARTMENT PATELLA: No marrow pathology, fracture, or significant arthropathy. CARTILAGE: No visible defect. TENDONS: Normal. EFFUSION: Small joint effusion. ACL: Increased signal in the distal fibers consistent with strain or partial tear PCL: Normal appearing ligament. MENISCOFEMORAL: Normal meniscofemoral ligaments. OTHER: Typical appearing popliteal cyst involving the semimembranosus-gastr ocnemius bursa, measuring approximately 5.2 x 2.4 cm. IMPRESSION: Findings suspicious for a tear of the posterior horn of the medial meniscus Strain and/or partial tear distal anterior cruciate ligament Small joint effusion 5.2 cm popliteal cyst Electronically authenticated by: NEL LYNCH Date: 2020-08-06 15:06 Normal [facility] Covid-19 PCR (CVDTB)on 07-24 Sample Type Test performed using RT-PCR from a nasopharyngeal collected specimen. Normal [facility] Comment on above: Performed By: #### C VDTBH ####[facility] [id number] [place], [place] [address]Bgbmjw[address]les [address]ady SARS-CoV-2 (COVID-19) RNA RICHARD+probe Ql (Unsp spec) Not detected Normal NOT DETECTED [facility] Comment on above: Result Comment: This test is not yet approved or cleared by the [place] FDA. When there are no FDA-approved or cleared tests available, and other criteria are met, FDA can make tests available under an emergency access mechanism called an Emergency Use Authorization (EUA). The EUA for this test is supported by the Adolescent Special[employer] of Health and Human Service's (HHS's) declaration that circumstances exist to justify the emergency use of in vitro diagnostics for the detection and/or diagnosis of the virus that causes COVID-19. This EUA will remain in effect (meaning this test can be used) for the duration of the COVID-19 declaration justifying emergency of IVDs, unless it is terminated or revoked by FDA (after which the test may no longer be used). When diagnostic testing is negative, the possibility of a false negative should be considered in the context of a patient's recent exposures and the presence of clinical signs and symptoms consistent with SARS-CoV-2. Performed By: #### C VDTBH ####[facility] [address] [place], [place] [address]Amomvu[place] Grady RAPID COVID-19 ANTIGENon EUA Statement SEE BELOW Normal [facility] Comment on above: Result Comment: This test has not been FDA cleared or approved, but has been authorized by the FDA under an Emergency Use Authorization (EUA) for use by authorized laboratories certified under CLIA that meet the requirements to perform moderate or high complexity testing. This test has been authorized only for the detection of proteins from SARS-CoV-2, not for any other viruses or pathogens. The emergency use of this test is authorized for the duration of the declaration that circumstances exist justifying the authorization of emergency use of in vitro diagnostic tests for detection and/or diagnosis of Covid-19 under section 564(b)(1) of the Act, 21 U.S.C. 360bbb-3(b)(1), unless the declaration is terminated or authorization is revoked sooner. Performed By: #### C VDAG #### [facility] [address] [place], [place] [address] Robles Grady SARS-CoV-2 (COVID-19) RNA RICHARD+probe Ql (Unsp spec) Negative Normal NEGATIVE [facility] Comment on above: Result Comment: Nega tive results are presumptive. They do not preclude infection and should not be used as the sole basis for treatment decisions. Additional confirmatory testing by a molecular method should be considered. Performed By: #### C VDAG #### [facility] [address] [place], [place] [address] Robles Grady XR KNEE LT 4V or >on 021 XR KNEE LT 4V or > IMAGES REVIEWED: XR KNEE LT 4V or > COMPARISON: 07/28/2020 x-ray left tibia/fibula and x-ray left femur. CLINICAL INDICATION: Pain, no injury. FINDINGS/IMPRESSION: 1. No radiographic evidence of acute osseous abnormality of the left knee. 2. No suprapatellar joint effusion. 3. Mild suprapatellar enthesopathic change. 4. No evidence of significant arthritic change. Electronically authenticated by: JUDY BARAJAS Date: 2020-08-03 22:19 Normal [facility] US JAMIE DOP LEG LTon 07-29-19 21 US JAMIE DOP LEG LT EXAM: US JAMIE DOP LEG LT HISTORY: Pain in left leg DUPLEX ULTRASOUND LEFT LOWER EXTREMITY: INDICATION: Pain in left leg. COMPARISON: None available. TECHNIQUE: Lemons-scale and Duplex ultrasound was performed of the left lower extremity. FINDINGS: There is normal lemons scale, color, and spectral Doppler of the left common femoral, superficial femoral, greater saphenous, popliteal, peroneal, and posterior tibial veins with no evidence of deep venous thrombosis. Compressibility and augmentation of the Doppler waveform was observed at several levels. There is a 4.1 x 1.1 x 0.9 cm anechoic collection in the left knee laterally. IMPRESSION: 1. Negative for left lower extremity deep venous thrombosis. 2. Anechoic fluid collection in the lateral aspect of the left, nonspecific but this may be due to a parameniscal cyst. This is not the typical location for a Medrano's cyst. Follow-up MRI may be considered given the patient's history of pain. Electronically authenticated by: TERRA CRUZ Date: 2020-07-28 18:32 Normal [facility] XR TIB_FIB LT 2Von XR TIB_FIB LT 2V EXAM: XR TIB_FIB LT 2V, XR FEMUR LT HISTORY: The patient is a 54-year-old female with left leg pain. COMPARISON: None. FINDINGS: There is some enthesopathy arising from the greater trochanter of the proximal left femur. Otherwise, the left femur is radiographically negative with no evidence of fracture, cortical lucencies, periosteal reactions, or other osseous abnormalities. The hip and knee joints are grossly maintained. The left tibia and fibula are radiographically negative with no evidence of fracture, cortical lucencies, periosteal reactions, or other osseous abnormalities. The ankle joint is grossly maintained. IMPRESSION: No significant osseous abnormalities of the left femur or left tibia/fibula. Electronically authenticated by: ABHI GRIFFIN Date: 2020-07-28 19:12 Normal [facility] Vital Signs Date Time Vital Sign Value Performing Clinician Facility 07-30-2024 10:040 Body height 157.5 [facility] 07-30-2024 10:04040 Body mass index (BMI) [Ratio] 46.88 kg/m2 [facility] Work Phone: [facility] 07-30-2024 10:04040 Body temperature 98.91 [degF] [facility] Work Phone: [facility] 07-30-2024 10:04040 Body weight 116.3 kg Veronica Murrell APRN-COURT ADMINISTRATOR Work Phone: [facility] 07-30-2024 10:04-0400 Diastolic blood pressure 88 mm[Hg] Veronica Murrell APRN-COURT ADMINISTRATOR Work Phone: [facility] 07-30-2024 10:04-0400 Heart rate 77 /min Veronica Murrell APRN-COURT ADMINISTRATOR Work Phone: [facility] 07-30-2024 10:04-0400 Respiratory rate 20 /min Veronica Murrell APRN-COURT ADMINISTRATOR Work Phone: [facility] 07-30-2024 10:04-0400 SaO2% (BldA) [Mass fraction] 97 % Veronica Murrell APRN-COURT ADMINISTRATOR Work Phone: [facility] 07-30-2024 10:04-0400 Systolic blood pressure 136 mm[Hg] Veronica Murrell APRN-COURT ADMINISTRATOR Work Phone: [facility] 06-19-2024 08:41-0400 Body height 157.5 cm Tobi Solorio APRN-COURT ADMINISTRATOR Work Phone: [facility] 06-19-2024 08:41-0400 Body mass index (BMI) [Ratio] 47.98 kg/m2 Tobi Solorio APRN-COURT ADMINISTRATOR Work Phone: [facility] 06-19-2024 08:41-0400 Body temperature 99.1 [degF] Tobi Solorio APRN-COURT ADMINISTRATOR Work Phone: [facility] 06-19-2024 08:41-0400 Body weight 118.98 kg Tobi Solorio RETREAD BUILDER-COURT ADMINISTRATOR Work Phone: [facility] 06-19-2024 08:41-0400 Diastolic blood pressure 68 mm[Hg] Tobi Solorio RETREAD BUILDER-COURT ADMINISTRATOR Work Phone: [facility] 06-19-2024 08:41-0400 Heart rate 82 /min Tobi Solorio APRN-COURT ADMINISTRATOR Work Phone: [facility] 06-19-2024 08:41-0400 Respiratory rate 18 /min Tobi Solorio APRN-COURT ADMINISTRATOR Work Phone: [facility] 06-19-2024 08:41-0400 SaO2% (BldA) [Mass fraction] 99 % Tobi Solorio APRN-COURT ADMINISTRATOR Work Phone: [facility] 06-19-2024 08:41-0400 Systolic blood pressure 132 mm[Hg] Tobi Solorio RETREAD BUILDER-COURT ADMINISTRATOR Work Phone: [facility] 05-02-2023 14:27-0500 Body height 157.5 cm Jr. Stepanic DO Work Phone: [facility] 05-02-2023 14:27-0500 Body mass index (BMI) [Ratio] 42.43 kg/m2 Jr. Stepanic DO Work Phone: [facility] [employer] 05-02-2023 14:27-0500 Body weight 105.23 kg Jr. Stepanic DO Work Phone: [facility] Healthcare Encounters Encounter Date Encounter Type Care Provider Facility Start: 08-24-2024 End: 08-25-2024 Refill Tobi Solorio APRN-COURT ADMINISTRATOR Work Phone: [facility] Start: 07-30-2024 End: 07-30-2024 Office outpatient visit 15 minutes Veronica Murrell RETREAD BUILDER-COURT ADMINISTRATOR Work Phone: [facility] Comment on above: Upper respiratory tr act infection, unspecified type (Primary Dx); Fever, unspecified fever cause; Acute cough Start: 07-30-2024 End: 07-30-[address] [facility] Start: 07-12-2024 End: 07-12-2024 ambulatory Hyacinth Ellington RN [facility] Start: 06-26-2024 End: 06-26-2024 Orders Only Tobi Solorio RETREAD BUILDER-COURT ADMINISTRATOR Work Phone: [facility] Start: 06-19-2024 End: 06-19-2024 ambulatory [facility] Start: 06-19-2024 End: 06-19-2024 Office outpatient visit 25 minutes oTbi Solorio RETREAD BUILDER-COURT ADMINISTRATOR Work Phone: [facility] Comment on above: Anxiety (Primary Dx) ; Hypothyroidism due to acquired atrophy of thyroid; Mixed hyperlipidemia; Essential hypertension; Class 3 severe obesity due to excess calories with serious comorbidity and body mass index (BMI) of 45.0 to 49.9 in adult ([facility]); Restless leg syndrome; Encounter for screening mammogram for malignant neoplasm of breast Start: 06-19-2024 End: 06-19-2024 ambulatory [facility] Start: 05-28-2024 End: 05-30-2024 Refill Tobi Solorio RETREAD BUILDER-COURT ADMINISTRATOR Work Phone: [facility] Comment on above: Anxiety disorder, un specified Start: 05-02-2023 End: 05-02-2023 ambulatory BULMARO PETER Not Available Start: 05-02-2023 End: 05-02-2023 Follow-up encounter Jr. Bulmaro Benitez DO Work Phone: [facility] Comment on above: Acute pain of left k nee (Primary Dx); History of total knee arthroplasty, left Start: 05-02-2023 Chart abstracting Jr. Bulmaro Benitez DO Work Phone: [facility] Start: 04-27-2023 External Result Encounter Justyn CARDONA Work Phone: [facility] Unsolicited Start: 04-27-2023 External Result Encounter Justyn CARDONA Work Phone: [facility] Unsolicited Start: 04-27-2023 End: 04-28-2023 ambulatory JCARLOS LANGE [facility] Start: 04-27-2023 End: 04-27-2023 ambulatory JCARLOS LANGE [facility] Start: 04-13-2023 End: 04-14-2023 ambulatory JCARLOS LANGE Not Available Start: 06-06-2021 End: 06-07-[address] BULMARO BENITEZ Facility:[facility] Start: 01-03-2021 End: 01-04-[address] JCARLOS LANGE Facility:[facility] Start: 12-18-2020 End: 12-18-2020 ambulatory TOBI ALEX Facility:[facility] Start: 09-05-2020 Encounter for preprocedural cardiovascular examination JCARLOS HAYDEN [facility] Start: 09-05-2020 Encounter for preprocedural laboratory examination JCARLOS HAYDEN [facility] Start: 09-03-2020 End: 09-03-2020 ambulatory TOBI ALEX Facility:[facility] Start: 08-31-2020 End: 09-01-2020 ambulatory TOBI ALEX Facility:[facility] Start: 08-31-2020 End: 09-01-2020 Encounter for preprocedural cardiovascular examination TOBI ALEX Facility:[facility] Start: 08-17-2020 End: 11-30-2020 ambulatory JCARLOS HAYDEN Facility:[facility] Start: 08-06-2020 End: 08-07-2020 ambulatory TOBI ALEX Facility:[facility] Start: 08-04-2020 End: 08-05-2020 ambulatory TOBI ALEX Facility:[facility] Start: 07-28-2020 End: 07-28-2020 ambulatory TOBI ALEX Facility:[facility] Procedures Date Procedure Procedure Detail Performing Clinician Start: 07-30-2024 POCT INFLUENZA A/INF LUENZA B/SARS-COV-2 VERITOR Veronica Murrell RETREAD BUILDER-COURT ADMINISTRATOR Work Phone: Start: 07-30-2024 Adult depression scr eening assessment Veronica Murrell RETREAD BUILDER-COURT ADMINISTRATOR Work Phone: Start: 06-19-2024 Adult depression scr eening assessment Tobi Alex RETREAD BUILDER-COURT ADMINISTRATOR Work Phone: Start: 04-27-2023 C-reactive protein Justyn favian CARDONA Work Phone: Start: 03-22-2023 Adult depression scr eening assessment Tobi Solorio RETREAD BUILDER-COURT ADMINISTRATOR Work Phone: Start: 10-20-2022 Microscopic observat ion [Identifier] in Cervix by Cyto stain Tobi Solorio RETREAD BUILDER-COURT ADMINISTRATOR Work Phone: Plan of Treatment Date Care Activity Detail Author Start: 10-20-2025 Screening for malign ant neoplasm of cervix Pap Smear [facility] Start: 07-30-2025 Adult BMI Follow Up Plan Adult BMI Follow Up Plan [facility] Start: 07-30-2025 Adult BMI Screening Adult BMI Screen ing [facility] Start: 07-30-2025 Depression Screening Depression Scre ening [facility] Start: 07-30-2025 Tobacco Screening Tobacco Screening [facility] Start: 06-19-2025 Adult BMI Screening Adult BMI Screen ing [facility] Start: 06-19-2025 Depression Screening Depression Scre ening [facility] Start: 06-19-2025 Tobacco Screening Tobacco Screening [facility] Start: 11-24-2024 Influenza vaccination Influenza Vacc ine [facility] Start: 06-19-2024 End: 06-19-2025 DBT Breast - bilateral screening Mammography screening bilateral with CAD Imaging Routine Encounter for screening mammogram for malignant neoplasm of breast Expected: 06/19/2024, Expires: 06/19/2025 [facility] Comment on above: Expected: 06/19/2024 , Expires: 06/19/2025 Start: 06-19-2024 End: 06-19-2025 Lipid 1996 panel - Serum or Plasma [facility] Comment on above: Expected: 06/19/2024 (Approximate), Expires: 06/19/2025 Start: 03-22-2024 Adult BMI Screening Adult BMI Screen ing [facility] Start: 03-22-2024 Depression Screening Depression Scre ening [facility] Start: 03-22-2024 Tobacco Screening Tobacco Screening [facility] Start: 11-25-2023 Influenza vaccination Influenza Vacc ine [facility] Start: 10-21-2023 Adult BMI Follow Up Plan Adult BMI Follow Up Plan [facility] Start: 06-06-2023 End: 06-06-2023 Patient encounter procedure 06/06/2023 2:30 PM EDT Office Visit [facility] [address] [place] [id number] Jr. Bulmaro Benitez, DO [address] [place] [address] [facility] Start: 05-02-2023 End: 05-02-2023 Patient encounter procedure 05/02/2023 2:30 PM EST Office Visit [facility] [address] [place] [id number] Jr. Bulmaro Benitez, DO [address] [facility] [address] [place] [address] [facility] Start: 2014 Administration of varicella zoster vaccine Zoster (Shingles) Vaccine (1 of 2) [facility] Start: 12-22-1983 DTaP,Tdap and Td Vaccines (1 - Tdap) DTaP,Tdap and Td Vaccines (1 - Tdap) [facility] End: 06-19-2025 Comprehensive metabolic 2000 panel - Serum or Plasma Comprehensive metabolic panel Lab Routine Essential hypertension 1 Occurrences starting 06/19/2024 until 06/19/2025 [facility] Comment on above: 1 Occurrences starti ng 06/19/2024 until 06/19/2025 Comprehensive metabo lic 2000 panel - Serum or Plasma Comprehensive metabolic panel Lab Routine Essential hypertension 06/19/2024 6:14 PM EDT [facility] End: 06-19-2025 Drug Screen, Urine Drug Screen, Urine Lab Routine Anxiety 1 Occurrences starting 06/19/2024 until 06/19/2025 [employer] Work Phone: Comment on above: 1 Occurrences starti ng 06/19/2024 until 06/19/2025 Drug Screen, Urine Drug Screen, Urine Lab Routine Anxiety 06/19/2024 6:15 PM EDT [facility] End: 06-19-2025 Thyroid profile includes TSH FT4 Thyroid profile includes TSH FT4 Lab Routine Hypothyroidism due to acquired atrophy of thyroid 1 Occurrences starting 06/19/2024 until 06/19/2025 [facility] Comment on above: 1 Occurrences starti ng 06/19/2024 until 06/19/2025 Thyroid profile incl udes TSH FT4 Thyroid profile includes TSH FT4 Lab Routine Hypothyroidism due to acquired atrophy of thyroid 06/19/2024 6:14 PM EDT [facility] Payers Date Payer Category Payer Blue Cross Blue Shie ld Managed Care - Other ANTHEM [id number] 2017 Unknown BCBS BCBS xxxxxx [id number] 2017-Present [phone] [id number] [place], [place] [id number] 1964 Unknown [id number] 2.16840.1.631378.3.579. 2.59 1964 Unknown [id number] 2.840.1.767319.3.579. 2. 1964 Unknown [id number] 2.16.840.1.263030.3.579. 2.593 1964 Unknown [id number] 2.16.840.1.491238.3.579. 2.593 1964 Unknown [id number] 2.16.840.1.711746.3.579. 2.593 1964 Unknown [id number] 2.16.840.1.215371.3.579. 2.593 1964 Unknown [id number] 2.16.840.1.233272.3.579. 2.593 1964 Unknown [id number] 2.16.840.1.414712.3.579. 2.593 1964 Unknown [id number] 2.16.840.1.726800.3.579. 2.593 1964 Unknown [id number] 2.16.840.1.539051.3.579. 2.1259 1964 Unknown [id number] 2.16.840.1.333979.3.579. 2.1259 1964 Unknown [id number] 2.16.840.1.484989.3.579. 2.1259 1964 Unknown [id number] 2.16.840.1.256337.3.579. 2.1286 1964 Unknown [id number] 2.16.840.1.420124.3.579. 2.1286 1964 Unknown [id number] 2.16.840.1.722561.3.579. 2.1286 1964 Unknown [id number] 2.16.840.1.849569.3.579. 2.1286 1964 Unknown [id number] 2.16.840.1.931572.3.579. 2.1286 1964 Unknown [id number] 2.16.840.1.533390.3.579. 2.1286 1964 Unknown [id number] 2.16.840.1.242670.3.579. 2.1286 1959 Unknown [id number] Social History Date Type Detail Facility Start: 04-13-2023 Tobacco smoking stat [facility] Never smoked tobacco [facility] Start: 10-05-2022 End: 04-13-2023 Tobacco use and exposure Smokeless tobacco non-user [facility] Start: 05-06-2020 End: 04-13-2023 History of Social function [facility] Start: 05-06-2020 End: 04-13-2023 Tobacco use panel [facility] Start: 04-13-2023 Tobacco Comment PT VAPES [facility] Start: 1965 Sex Assigned At Not on file [facility] Start: 06-07-2022 Gender identity Identifies as female gender (finding) [facility] Start: 10-05-2022 Tobacco smoking stat us NHIS Ex-smoker [facility] History of tobacco use Current smoker [facility] History of tobacco use Cigarette Smoker [facility] History of tobacco use Tobacco U se Types Packs/Day Years Used Date Smoking Tobacco: Former Cigarettes Vaping/E-cigarettes Smokeless Tobacco: Never [facility] Start: 03-22-2023 End: 07-30-2024 Alcoholic beverage intake Lifetime non-drinker (finding) [facility] Adolescent depressio n screening assessment 0 [facility] Start: 03-15-2015 Sex Female (finding) [facility] Clinical Notes 08-04-2020 to 07-30-2024 Veronica Murrell APRN-COURT ADMINISTRATOR - 07/30/2024 10:00 AM EDTTelephone Encounter - Hyacinth Ellington RN - 07/12/2024 1:57 PM EDTTelephone Encounter - Dbe Buckner RN - 07/12/2024 1:57 PM EDT Note Date & Type Note Facility 07-30-2024 History of Present illness Narrative Images from the original note were not included. [address] [facility] [address] SUBJECTIVE: Patient ID: Kaylee Ferrari is a 58 y.o. female. Onset of symptoms started Sunday. Symptoms include cough, sore throat, hoarse voice, chills, fever (highest 102 on Sunday), sinus congestion with green nasal secretions. She is worried because she did have pneumonia several years ago. URI This is a new problem. The current episode started in the past 7 days. The problem has been gradually worsening. The maximum temperature recorded prior to her arrival was 102 - 102.9 F. The fever has been present for 1 to 2 days. Associated symptoms include congestion, coughing, ear pain, headaches, joint pain, a plugged ear sensation, rhinorrhea, sinus pain, a sore throat and swollen glands. Pertinent negatives include no chest pain. She has tried sleep and increased fluids for the symptoms. The treatment provided no relief. The following portions of the patient's history were reviewed and updated as appropriate: allergies, current medications, past family history, past medical history, past social history, past surgical history and problem list. Past Surgical History: Procedure Laterality Date SECTION x3 - 03/09/1989, 05/19/1998 and 10/30/2000 COLONOSCOPY N/A 11/03/2022 Performed by Bert Lopez DO at [facility] DISCECTOMY 03/26/2016 OF SPINE KNEE CARTILAGE SURGERY 10/03/2020 REPLACEMENT TOTAL KNEE Left 06/16/2021 TOTAL KNEE ARTHROPLASTY Left 06/16/2021 TUBAL LIGATION 03/26/2000 Past Medical History: Diagnosis Date Anxiety Hypothyroidism Obstructive sleep apnea syndrome Osteoarthritis of knee There is no immunization history on file for this patient. REVIEW OF SYSTEMS: Review of Systems Constitutional: Positive for chills, fatigue and fever. HENT: Positive for congestion, ear pain, postnasal drip, rhinorrhea, sinus pressure, sinus pain, sore throat and voice change. Eyes: Negative for visual disturbance. Respiratory: Positive for cough and chest tightness. Negative for shortness of breath. Cardiovascular: Negative for chest pain and palpitations. Gastrointestinal: Negative. Endocrine: Negative. Genitourinary: Negative for menstrual problem and pelvic pain. Musculoskeletal: Positive for joint pain and myalgias. Skin: Negative. Allergic/Immunologic: Negative. Neurological: Positive for headaches. Negative for syncope and facial asymmetry. Hematological: Does not bruise/bleed easily. Psychiatric/Behavioral: Negative. PHYSICAL EXAMINATION: Vitals: 07/30/24 1004 BP: 136/88 BP Site: Right Arm BP Postition: Sitting BP CUFF SIZE: L (13-17 inches) Pulse: 77 Resp: 20 Temp: 37.2 C (98.9 F) TempSrc: Tympanic SpO2: 97% Weight: 116.3 kg (256 lb 6.4 oz) Height: 157.5 cm (5' 2.01 ) Patient noted to have elevated BMI and the following intervention(s) were applied: encouragement to exercise. Physical Exam Vitals and nursing note reviewed. Constitutional: General: She is not in acute distress. Appearance: She is well-developed. She is not diaphoretic. HENT: Head: Normocephalic and atraumatic. Right Ear: External ear normal. Tympanic membrane is erythematous and bulging. Left Ear: External ear normal. Tympanic membrane is erythematous and bulging. Nose: Nasal tenderness, mucosal edema and congestion present. Right Turbinates: Swollen. Left Turbinates: Swollen. Right Sinus: Maxillary sinus tenderness and frontal sinus tenderness present. Left Sinus: Maxillary sinus tenderness and frontal sinus tenderness present. Mouth/Throat: Mouth: Mucous membranes are moist. Pharynx: Posterior oropharyngeal erythema and postnasal drip present. No oropharyngeal exudate. Eyes: General: Right eye: No discharge. Left eye: No discharge. Conjunctiva/sclera: Conjunctivae normal. Pupils: Pupils are equal, round, and reactive to light. Neck: Thyroid: No thyromegaly. Vascular: No JVD. Cardiovascular: Rate and Rhythm: Normal rate and regular rhythm. Heart sounds: Normal heart sounds. No murmur heard. No friction rub. No gallop. Pulmonary: Effort: Pulmonary effort is normal. Breath sounds: Normal breath sounds. Abdominal: General: Bowel sounds are normal. There is no distension. Palpations: Abdomen is soft. There is no mass. Tenderness: There is no abdominal tenderness. Musculoskeletal: General: Normal range of motion. Cervical back: Normal range of motion and neck supple. Lymphadenopathy: Cervical: No cervical adenopathy. Skin: General: Skin is warm and dry. Capillary Refill: Capillary refill takes less than 2 seconds. Neurological: Mental Status: She is alert and oriented to person, place, and time. Deep Tendon Reflexes: Reflexes are normal and symmetric. Psychiatric: Mood and Affect: Mood normal. Behavior: Behavior normal. Thought Content: Thought content normal. Judgment: Judgment normal. ASSESSMENT/PLAN: Kaylee was seen today for fever. Diagnoses and all orders for this visit: Upper respiratory tract infection, unspecified type - azithromycin (ZITHROMAX) 250 mg tablet; Take 2 tablets the first day, then 1 tablet daily for 4 days. - methylPREDNISolone (MEDROL, FLAKO,) 4 mg tablet; Take 1 tablet (4 mg total) by mouth in the morning. follow package directions. Fever, unspecified fever cause Acute cough - POCT Influenza A/Influenza B/SARS-COV-2 Veritor - ydpmloaupyregax-otredbjzl-QM 2-30-10 mg/5 mL syrup; Take 5 mL by mouth 4 (four) times a day as needed for allergies. POCT COVID and influenza is negative. Cool mist humidification for congestion, warm salt water gargles as needed for sore throat. Motrin or Tylenol as needed per upper extremity surgeon guidelines for fever or pain. Start Zpak and Medrol dose pack as directed. ALL QUESTIONS ANSWERED Total time spent was 25 minutes: Preparing to see the patient (e.g., review of tests) Obtaining and/or reviewing separately obtained history Performing a medically appropriate examination and/or evaluation Counseling and educating the patient/family/caregiver Ordering medications, tests, or procedures Follow-up: Next scheduled Sooner if symptoms do not improve DALLAS Rose 07/30/24 1031 documented in this encounter [facility] 07-12-2024 Miscellaneous Notes ----- Message from Debbie sent at 07/12/2024 1:31 PM EDT ----- Ant quintanilla believes having allergc reaction to meds Contract: 198 Spoke with patient- she voiced that the emergency room physician called in a different medication for her Patient no longer needing assistance Telephone triage not completed Reason for Disposition Caller has already spoken with the PCP and has no further questions. Protocols used: No Contact or Duplicate Contact Call-A- documented in this encounter [facility] 07-12-2024 Telephone encounter Note ----- Message from Debbie sent at 07/12/2024 1:31 PM EDT ----- Ant quintanilla believes having allergc reaction to meds [facility] 07-12-2024 Telephone encounter Note Contract: 198 Spoke with patient- she voiced that the emergency room physician called in a different medication for her Patient no longer needing assistance Telephone triage not completed Reason for Disposition Caller has already spoken with the PCP and has no further questions. Protocols used: No Contact or Duplicate Contact Call-A-AH [facility] 06-19-2024 History of Present illness Narrative [address] [facility] [address] Patient: Kaylee Ferrari Date of : 1965 Encounter Date: 06/19/2024 History of Present Illness: The patient is a 58 y.o. female, an established patient, and is here for Chief Complaint Patient presents with controlled sub . HPI Patient is here to refill her controlled substance, Ativan. She has not had a refill of this in the last 2 years nor has taken a dose for that long. She states she has felt good and not needed to come in but it would be nice to have an occasional Ativan when she has breakthrough symptoms of anxiety. Otherwise her Paxil is working well to keep her moods stable most days. Patient states her restless leg syndrome is very well controlled with the Requip on most days but has an occasional night every couple of months where the medication does not seem to work well and she is up most of the night. She has no significant adverse side effects with this medication. She has had a sleep study in the past and she does have sleep apnea but she does not use her mask frequently. States she uses her CPAP less than 50% of the time because she does not feel any improvement in her energy levels when she does use this. 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 Problem List Items Addressed This Visit Endocrine Hypothyroidism Relevant Medications levothyroxine (SYNTHROID, LEVOTHROID) 175 MCG tablet Other Relevant Orders Thyroid profile includes TSH FT4 Other Anxiety - Primary Relevant Medications LORazepam (ATIVAN) 0.5 mg tablet Other Relevant Orders Drug Screen, Urine Mixed hyperlipidemia Relevant Orders Lipid profile Other Visit Diagnoses Essential hypertension Relevant Orders Comprehensive metabolic panel Class 3 severe obesity due to excess calories with serious comorbidity and body mass index (BMI) of 45.0 to 49.9 in adult ([facility]) Restless leg syndrome Encounter for screening mammogram for malignant neoplasm of breast Relevant Orders Mammography screening bilateral with CAD Past Medical, Family, and Social History Update: The following portions of the patient's history were reviewed and updated as appropriate: allergies, current medications, past family history, past medical history, past social history, past surgical history and problem list. Past Medical History: Diagnosis Date Anxiety Hypothyroidism Obstructive sleep apnea syndrome Osteoarthritis of knee Past Surgical History: Procedure Laterality Date SECTION x3 - 03/09/1989, 05/19/1998 and 10/30/2000 COLONOSCOPY N/A 11/03/2022 Performed by Bert Lopez DO at [facility] DISCECTOMY 03/26/2016 OF SPINE KNEE CARTILAGE SURGERY 10/03/2020 REPLACEMENT TOTAL KNEE Left 06/16/2021 TOTAL KNEE ARTHROPLASTY Left 06/16/2021 TUBAL LIGATION 03/26/2000 Current Outpatient Medications Medication Sig Dispense Refill levothyroxine (SYNTHROID, LEVOTHROID) 175 MCG tablet PARoxetine (PAXIL) 40 mg tablet TAKE 1 TABLET BY MOUTH EVERY DAY IN THE MORNING 90 tablet 1 rOPINIRole (REQUIP) 3 mg tablet TAKE 1 TABLET BY MOUTH NIGHTLY 90 tablet 1 LORazepam (ATIVAN) 0.5 mg tablet Take 1 tablet (0.5 mg total) by mouth daily as needed for anxiety. 30 tablet 0 No current facility-administered medications for this visit. (All medications reviewed and updated by provider since last office visit or hospitalization) Allergies: Quetiapine Tobacco History: Social History Tobacco Use Smoking Status Former Current packs/day: 1.00 Types: Vaping/E-cigarettes , Cigarettes Smokeless Tobacco Never (If patient a smoker, smoking cessation counseling offered) Social History: Social History Substance and Sexual Activity Alcohol Use Never Review of Systems: Review of Systems Constitutional: Positive for unexpected weight change (About 18 lb weight gain since last visit 2 years ago.). Negative for activity change. HENT: Negative. Respiratory: Negative. Cardiovascular: Negative. Gastrointestinal: Negative. Musculoskeletal: Negative. Neurological: Negative. Psychiatric/Behavioral: Negative for agitation, dysphoric mood, self-injury, sleep disturbance and suicidal ideas. The patient is nervous/anxious. Physical Exam: BP 132/68 (BP Site: Left Arm, BP Postition: Sitting) Pulse 82 Temp 37.3 C (99.1 F) (Oral) Resp 18 Ht 157.5 cm (5' 2 ) Wt 119 kg (262 lb 4.8 oz) SpO2 99% BMI 47.98 kg/m Physical Exam Vitals reviewed. Constitutional: Appearance: Normal appearance. She is obese. HENT: Head: Normocephalic and atraumatic. Right Ear: Tympanic membrane, ear canal and external ear normal. Left Ear: Tympanic membrane, ear canal and external ear normal. Nose: Rhinorrhea present. Mouth/Throat: Mouth: Mucous membranes are moist. Eyes: Pupils: Pupils are equal, round, and reactive to light. Neck: Thyroid: No thyroid mass, thyromegaly or thyroid tenderness. Cardiovascular: Rate and Rhythm: Normal rate and regular rhythm. Heart sounds: Normal heart sounds. Pulmonary: Effort: Pulmonary effort is normal. Breath sounds: Normal breath sounds. Abdominal: General: Bowel sounds are normal. Palpations: Abdomen is soft. Tenderness: There is no abdominal tenderness. Comments: Obese Musculoskeletal: Right lower leg: No edema. Left lower leg: No edema. Lymphadenopathy: Cervical: No cervical adenopathy. Skin: General: Skin is warm. Capillary Refill: Capillary refill takes less than 2 seconds. Neurological: General: No focal deficit present. Mental Status: She is alert and oriented to person, place, and time. Gait: Gait normal. Psychiatric: Mood and Affect: Mood normal. Behavior: Behavior normal. Assessment and Plan: Kaylee was seen today for controlled sub. Diagnoses and all orders for this visit: Anxiety - Drug Screen, Urine; Future - LORazepam (ATIVAN) 0.5 mg tablet; Take 1 tablet (0.5 mg total) by mouth daily as needed for anxiety. Hypothyroidism due to acquired atrophy of thyroid - Thyroid profile includes TSH FT4; Future Mixed hyperlipidemia - Lipid profile; Future Essential hypertension - Comprehensive metabolic panel; Future Class 3 severe obesity due to excess calories with serious comorbidity and body mass index (BMI) of 45.0 to 49.9 in adult ([facility]) Restless leg syndrome Encounter for screening mammogram for malignant neoplasm of breast - Mammography screening bilateral with CAD; Future Follow-up: Will refill ativan, very infrequent fills for this for emergency or break-through symptoms. Will update controlled substance agreement and drug screen today. She should test negative for benzodiazepines in her drug screen as she denies any recent intake of the Ativan. The OARRS/MAPPS database was reviewed today and found to be appropriate. No indication of medication diversion, or non compliance. We will recheck her routine labs including her thyroid function tests as patient has not been in to see a provider in the last 2 years. She states she is taking her thyroid medication appropriately on an empty stomach with just water and now before everything else. He has not eaten anything this morning but she did drink coffee with half and half. Patient's blood pressure is very near goal today, no changes. She was encouraged to take her blood pressure at home 1-2 times per week and record for next appointment for a wellness and Pap sometime this year. It was recommended that she continue self-breast exams and have her mammogram done. She declines colorectal cancer screening this year and wants to wait for next year. She understands the risks of not using her CPAP mask to treat her sleep apnea including cardiovascular risks, a arrhythmias in heart failure. She understands that treating her sleep apnea may also improve her restless leg syndrome. For now we will continue her Requip. DALLAS ISAAC APRN-CNP 06/19/24 1338 documented in this encounter [facility] 05-28-2024 Miscellaneous Notes Patient needs a wellness appointment she canceled last 3 appointments. She needs blood work for the medication she is taking. documented in this encounter [facility] 05-28-2024 Telephone encounter Note Patient needs a wellness appointment she canceled last 3 appointments. She needs blood work for the medication she is taking. [facility] 05-02-2023 History of Present illness Narrative Images from the original note were not included. HISTORY OF PRESENT ILLNESS: EST PT Kaylee Ferrari is an 57 y.o. @ female. EST PT; MOST RECENT VISIT WITH JUSTYN- S/P LT TKA 06/16/21 (~1YR 11MO)- HERE FOR BONE SCAN RESULTS 04/28/23 [facility] RESULTS XRAY LT KNEE CHANGE 04/13/23 XRAY EXA 08/01/21 BONE SCAN 04/28/23 [facility] (SEDRATE/CRP) 04/28/23 [facility] ELISEO OLIVIA. NOTES GOOD DAYS AND BAD - TODAY IS A REALLY GOOD DAY- PAIN IS GENERALLY MEDIAL KNEE- +SWELLING- DENIES INSTABILITY- +MOTRIN ALLERGIES: No Known Allergies HOME MEDICATIONS: Current Outpatient Medications Medication Instructions levothyroxine (Synthroid, Levoxyl) 175 MCG tablet LORazepam (ATIVAN) 0.5 mg, Oral, Daily PRN methylPREDNISolone (MEDROL DOSPAK) 4 mg, Oral, Once, Use as directed by package instructions PARoxetine (Paxil) 40 MG tablet 1 tablet, Oral, Daily rOPINIRole (Requip) 3 MG tablet 1 tablet, Oral, Nightly PHYSICAL EXAM: Knee Musculoskeletal Exam Gait Gait is normal. Inspection Leg length disparity: no discrepancy Left Erythema: none Effusion: none Edema: none Ecchymosis: none Deformity: none Alignment: normal Previous incision: anterior Incision: well-healed Palpation Left Left knee palpation is unremarkable. Increased warmth: none Masses: none Tenderness: present Medial joint line: mild and moderate Medial joint line comment: pain is mostly with weight bearing. Range of Motion Left Left knee range of motion is normal and full. Strength Left Left knee strength is normal. Extension: 5/5. Flexion: 5/5. Instability Left Instability signs: none - stable Varus stress grade: normal Valgus stress grade: normal Neurovascular Left Left knee neurovascular exam is normal. Pulses - PT: normal Posterior tibial: 2+ Capillary refill: warm and well-perfused Special Signs Left Left knee special signs are normal. Patellar apprehension: none General Constitutional: appears stated age Labored breathing: no Psychiatric: normal mood and affect Neurological: alert Skin: intact Lymphadenopathy: none Vitals: Body mass index is 42.43 kg/m . Tobacco Use: Low Risk (05/02/2023) Patient History Smoking Tobacco Use: Never Smokeless Tobacco Use: Never Passive Exposure: Not on file Alcohol Use: Not on file IMAGING: Procedures No orders of the defined types were placed in this encounter. ASSESSMENT: ICD-10-CM 1. Acute pain of left knee M25.562 methylPREDNISolone (Medrol Dospak) 4 MG tablets 2. History of total knee arthroplasty, left Z96.652 PLAN: We have discussed the patient's bone scan at length. She states that she is having good days lately and would like to hold off on revision arthroplasty. We have discussed risks and benefits of waiting on surgical intervention and the patient is willing to accept those risks. We have recommend a minimum a Medrol Dosepak. We have discussed restrictions and home exercise program. We'll see her back in 1 month. If her symptoms persist or worsen, we will recommend a revision specialist. Questions answered in laymen terms at the bedside. The diagnosis, home exercise plan and any ongoing restrictions/ recommendations reviewed. If unable to be reached in office, I recommend evaluation at nearest Emergency Room if any symptoms worsened or new symptoms develop for requiring urgent evaluation. Bulmaro Benitez Jr., documented in this encounter [facility] 09-03-2020 Note OPERATIVE NOTE OPERATION DATE: 09-03-20 ANESTHETIC: General. PREOPERATIVE DIAGNOSIS:Left knee lateral meniscus tear. POSTOPERATIVE DIAGNOSIS: 1. Left knee lateral meniscus tear. 2. 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 PROCEDURE NAME: 1. Left knee arthroscopic lateral meniscectomy. 2. Left knee medial femoral chondroplasty. ESTIMATED BLOOD LOSS: Minimal. SPECIMENS:None. COMPLICATIONS: None. TOTAL TOURNIQUET TIME:35 minutes. PROCEDURE: Once informed consent was obtained, the operative site was marked, preoperative antibiotics given. The patient was brought back to the OR and placed in the supine position on the OR table. General endotracheal anesthesia was then induced. The tourniquet was placed over her left lower extremity, which is prepped and draped in the standard surgical fashion. Appropriate timeout was completed before starting the case. Esmarch was used to exsanguinate the leg and tourniquet was inflated. A lateral parapatellar portal was created with an 11 blade scalpel. Trocar entered to the knee joint and diagnostic arthroscopy ensued. There was no evidence of loose bodies in the superolateral pouch. The medial gutter showed no loose bodies. The medial femoral condyle showed evidence of grade 2 chondromalacia. There was no evidence of medial meniscus tear. An anteromedial parapatellar portal was then created with an outside in technique. Shaver was introduced along with a ring curette. We gently debrided the medial femoral condyle back to a stable margin and performed a chondroplasty. The ACL and PCL were intact after probing. There was evidence of a degenerative middle and posterior horn meniscus tear. With the combination of an up-biter and shaver I performed a meniscectomy of the inner third of the middle horn, extending into the posterior horn creating a smooth transition. The shaver was introduced to remove all excess meniscal fragments. No chondromalacia was noted of the lateral compartment. Patellofemoral compartment was pristine with no evidence of chondromalacia. Excess fluid was then expressed from the knee. Portal signs were closed with 3-0 Nylon in a simple interrupted fashion. The wounds are cleansed and dried. Xeroform, 4x4's ABD's and thigh-high AUDIE hose were placed. The patient was extubated and taken to the Recovery Room in stable condition. All needle, sponge, and instrument counts were correct. [facility] Signed and Approved by: JCARLOS HAYDEN 09/09/2020 10:36:00 [facility] 08-04-2020 Note CONSULTATION Consultation Date: 08-05-20 CHIEF COMPLAINT: Left knee pain, inability to bear weight. HISTORY OF PRESENT ILLNESS: This is a 54 year-old female who presented to the ER at [facility] with inability to bear weight and significant pain in her left knee. She was admitted by the hospitalist on-call. The knee pain has been bothering her for the past couple weeks. It's diffuse in nature. She denies any trauma. Her PCP had already ordered her to have a MRI performed as an outpatient. She denies any previous surgery. She states two days ago the pain became very severe when she was walking down a flight of steps and planted on the left lower extremity and felt a pop immediately followed by pain. She's not been able to bear weight. She rates the pain as an 8/10 in severity. She denies any numbness or tingling. PAST MEDICAL HISTORY: Hypothyroidism, hypercholesterolemia, depression, obstructive sleep apnea, lumbar disc disease. PAST SURGICAL HISTORY: Caesarean section x3, history of a lumbar fusion spinal surgery. ALLERGIES: NKDA. HOME MEDICATIONS: Paxil, Lipitor, Synthroid, Ativan. SOCIAL HISTORY: The patient does smoke, she smokes 4 pack years. REVIEW OF SYSTEMS: Negative for chest pain, shortness of breath, nausea, vomiting, headache, blurry vision, difficulty urinating. Positive for left knee pain, inability to bear weight. PHYSICAL EXAM: VITALS:Temp 98, BP 159/93, heart rate 71, respiratory rate 18. GENERAL:She's in no acute distress. She's sitting up in a chair. NEURO:She's alert and oriented x3. Mood and affect are appropriate. LYMPHATIC:She has no evidence of bilateral lower extremity pitting edema. She has no evidence of inguinal adenopathy. MUSCULOSKELETAL:Left knee is examined. There is no evidence of erythema or obvious swelling. She possibly has a small palpable joint fluid wave. There is no evidence of induration and no evidence of an infection. She has full range of motion, she can flex to 120 degrees, extension to neutral. She is tender around the medial aspect and around the pes anserine bursa sac. Her calf is soft and nontender. She has a palpable dorsal pedal pulse. Her sciatic and perineal nerves are intact. She has an equivocal Sandhya's test and a negative Teo's test. RADIOGRAPHIC STUDIES: X-rays three views of the left knee are negative for any fracture or dislocation. She has no evidence of arthritic change. She has normal joint space. There is no evidence of a joint effusion. She also had an ultrasound performed that did not show any evidence of a deep vein thrombosis, however, they did see a small nonspecific suspected parameniscal cyst, but it was not in a typical location for a Medrano's cyst. IMPRESSION: This is a 54 year-old female with significant left knee pain and inability to bear weight. PLAN: The patient was started on Solu-Medrol IV over the past 24 hours and her symptoms have improved significantly. She did work with therapy and she is having difficulty with weightbearing. I offered her an intraarticular cortisone injection which she agreed to. When I returned to do it, she then declined. She states she would like to have her MRI obtained as an outpatient first before proceeding with any type of treatment. That MRI is scheduled for tomorrow August 06. She will followup with me this coming week, at which point we will review the MRI and discuss injection and formal Physical Therapy vs arthroscopic procedure if warranted. She is in agreement with this plan. The patient will be discharged home today by the hospitalist. [facility] Signed and Approved by: JCARLOS HAYDEN 08/09/2020 12:01:00 [facility] Evaluation note Diagnosis Acute pain of left knee- Primary History of total knee arthroplasty, left [facility] Anxiety disorder, unspecified [facility] Anxiety- Primary Anxiety state, unspecified Hypothyroidism due to acquired atrophy of thyroid Mixed hyperlipidemia Essential hypertension Unspecified essential hypertension Class 3 severe obesity due to excess calories with serious comorbidity and body mass index (BMI) of 45.0 to 49.9 in adult ([facility]) Restless leg syndrome Restless legs syndrome (RLS) Encounter for screening mammogram for malignant neoplasm of breast [facility] Diagnosis Upper respiratory tract infection, unspecified type- Primary Fever, unspecified fever cause Acute cough [facility] filed[facility]ed in [facility] filedocumented in this encounter [facility] filedocumented in this encounter [facility] filedocumented in [facility]* Attachments The following attachments cannot be sent through Care Everywhere. * Upper respiratory infection in adults ED discharge instructions ([place]) [facility] Purpose Family History No Family History Records FoundNo Family History Records FoundNo Family History Records FoundNo Family History Records FoundNo Family History Records FoundNo Family History Records Found Advance Directives No Advanced Directives Records FoundNo Advanced Directives Records FoundNo Advanced Directives Records FoundNo Advanced Directives Records FoundNo Advanced Directives Records FoundNo Advanced Directives Records Found Additional Source Comments INFORMATION SOURCE (unrecogn ized section and content) DATE CREATED AUTHOR 06/09/2021 [facility] DATE CREATED AUTHOR AUTHOR'S ORGANIZ ATION 08/14/2021 [facility] DATE CREATED AUTHOR AUTHOR'S ORGANIZ ATION 05/03/2023 [facility] EPIC DATE CREATED AUTHOR AUTHOR'S ORGANIZ ATION 05/14/2023 [facility] DATE CREATED AUTHOR AUTHOR'S ORGANIZ ATION 06/21/2024 [facility] DATE CREATED AUTHOR AUTHOR'S ORGANIZ ATION 08/01/2024 [facility] Care Teams (unrecognized sec tion and content) Compressor Repairer Relationship Specialty Start Date End Date Bert Lopez MD [address] [place] [address] PCP - General Internal Medicine 04/13/23 Tobi Solorio MD [address] [place] [place] [address] Referring Physician Family Medicine 04/13/23 Compressor Repairer Relationship Specialty Start Date End Date Bert Lopez MD [address] [place] [address] PCP - General Internal Medicine 04/13/23 oTbi Solorio MD [address] [place] [address] Referring Physician Family Medicine 04/13/23 Compressor Repairer Relationship Specialty Start Date End Date Tobi Solorio APRN-COURT ADMINISTRATOR [address] [place] [address] PCP - General Internal Medicine 05/17/21 Compressor Repairer Relationship Specialty Start Date End Date Tobi Solorio APRN-RADHA [address] [place] [address] PCP - General Internal Medicine 05/17/21 Compressor Repairer Relationship Specialty Start Date End Date Tobi Solorio APRNCOURT ADMINISTRATOR [address] [place] [address] PCP - General Internal Medicine 05/17/21 Compressor Repairer Relationship Specialty Start Date End Date Tobi Solorio APRNCOURT ADMINISTRATOR [address] [place] [address] PCP - General Internal Medicine 05/17/21 Compressor Repairer Relationship Specialty Start Date End Date Tobi Solorio APRN-COURT ADMINISTRATOR [address] [place] [address] PCP - General Internal Medicine 05/17/21 Compressor Repairer Relationship Specialty Start Date End Date Tobi Solorio APRN-RADHA [address] [place] [address] PCP - General Internal Medicine 05/17/21 Reason for Visit (unrecogniz ed section and content) Reason Comments Pain Reason Comments Med Refill Reason Comments controlled sub Reason Comments Fever Cough, sore throat FOR RECORDS PERTAINING TO PATIENTS WHO ARE OR HAVE BEEN ENROLLED IN A CHEMICAL DEPENDENCY/SUBSTANCEABUSE PROGRAM, SOME INFORMATION MAY BE OMITTED. This clinical summary was aggregated from multiple sources. Caution should be exercised in using it in the provision of clinical care. This summary normalizes information from multiple sources, and as a consequence, information in this document may materially change the coding, format and clinical context of patient data. In addition, data may be omitted in some cases. CLINICAL DECISIONS SHOULD BE BASED ON THE PRIMARY CLINICAL RECORDS. [facility]. provides no warranty or guarantee of the accuracy or completeness of information in this document.
--- OUTSIDE RECORDS SUMMARY | 2024-08-27 07:08 | XMS_ITS | Clinical Summary ---
Author Organization [employer] tem Address [id number] [address] [place] [address] Care Team Providers Care Plier Worker Name Role Phone Starr Solorio APRN-DRY ROOM OPERATOR Primary Care Provider + Allergies Active Allergy Reactions Criticality Noted Date Comments Ciprofloxacin 07/30/2024 Metronidazole 07/30/2024 Quetiapine Hives 02/11/2021 Medications PARoxetine (PAXIL) 40 mg tabletIndicatio ns:Anxiety disorder, unspecified TAKE 1 TABLET BY MOUTH EVERY DAY IN THE MORNING 90 tablet 1 5 Active levothyroxine (SYNTHROID, LEVOTHROID) 175 MCG tablet Active LORazepam (ATIVAN) 0.5 mg tabletIndicatio ns:Anxiety Take 1 tablet (0.5 mg total) by mouth daily as needed for anxiety. 30 tablet 5 Active atorvastatin (LIPITOR) 20 mg tablet Take 1 tablet (20 mg total) by mouth in the morning. 90 tablet 1 5 Active methylPREDNISol one (MEDROL, FLAKO,) 4 mg tabletIndicatio ns:Upper respiratory tract infection, unspecified type Take 1 tablet (4 mg total) by mouth in the morning. follow package directions. 21 tablet 5 Active brompheniramine -pseudoeph-DM 2-30-10 mg/5 mL syrupIndication s:Acute cough Take 5 mL by mouth 4 (four) times a day as needed for allergies. 120 mL 5 Active rOPINIRole (REQUIP) 3 mg tablet TAKE 1 TABLET BY MOUTH NIGHTLY 90 tablet 1 5 Active rOPINIRole (REQUIP) 3 mg tablet TAKE 1 TABLET BY MOUTH NIGHTLY 90 tablet 1 4 025 Discontinued azithromycin (ZITHROMAX) 250 mg tabletIndicatio ns:Upper respiratory tract infection, unspecified type Take 2 tablets the first day, then 1 tablet daily for 4 days. 6 tablet 5 025 Active Problems Problem Noted Date Diagnosed Date Polyp of ascending colon 11/03/2022 Colon cancer screening 10/23/2022 Artificial knee joint present 12/01/2021 Difficulty walking 12/01/2021 Lumbar disc herniation with radiculopathy 2021 Status post total left knee replacement 12/02/19 Severe obesity (BMI >= 40) 06/07/2021 Osteoarthritis of knee 02/11/2021 Internal derangement of left knee 12/27/2020 Primary insomnia 10/10/2017 Acquired trigger finger 04/10/2017 Pain in limb 04/10/2017 Obstructive sleep apnea 05/15/2016 Generalized anxiety disorder 05/10/2015 Mixed hyperlipidemia 05/10/2015 Anxiety 02/23/2015 Hypothyroidism 02/23/2015 Pure hypercholesterolemia 02/23/2015 Tobacco dependence syndrome 02/23/2015 Encounters Date Type Department Care Team Description 08/26/2024 12:11 PM EDT - 08/26/2024 1:43 PM EDT Emergency [facility] - Emergency [address] [place] [address] Discharge Disposition: Left Without Treatment 08/26/2024 Travel 08/26/2024 Telephone [facility] [address] [place] [address] Emily Hinton CMA 08/24/2024 Refill [facility] [address] [place] [address] Starr Solorio APRN-DRY ROOM OPERATOR 07/30/2024 10:00 AM EDT Office Visit [facility] [address] [place] [address] Yesika Murrell APRN-CNP Upper respiratory tract infection, unspecified type (Primary Dx); Fever, unspecified fever cause; Acute cough 07/29/2024 Travel 07/14/2024 Telephone [facility] [address] [place] [address] Emily Hinton [facility] 07/12/2024 Nurse Triage [facility] [address] [place] [address] Hyacinth Ellington RN 06/26/2024 Orders Only [facility] [address] [place] [address] Starr Solorio APRN-CNP 06/23/2024 [facility] [address] [place] [address] Emily Hinton [facility] 06/19/2024 6:09 PM EDT - 06/19/2024 11:59 PM EDT Hospital Encounter [facility] [address] [address] Hypothyroidism due to acquired atrophy of thyroid; Essential hypertension; Mixed hyperlipidemia; Anxiety Discharge Disposition: Home 06/19/2024 8:40 AM EDT [facility] [address] [place] [address] Starr Solorio APRN-CNP Anxiety (Primary Dx); Hypothyroidism due to acquired atrophy of thyroid; Mixed hyperlipidemia; Essential hypertension; Class 3 severe obesity due to excess calories with serious comorbidity and body mass index (BMI) of 45.0 to 49.9 in adult ([facility]); Restless leg syndrome; Encounter for screening mammogram for malignant neoplasm of breast 06/19/2024 Travel 05/28/2024 Refill [facility] [address] [place] [address] Starr Solorio APRN-CNP Anxiety disorder, unspecified from Last 3 Months Immunizations No known immunizations Family History Medical History Relation Name Comments Colon cancer Father Diabetes Maternal Aunt Relation Name Status Comments Father Maternal Aunt Social History Tobacco Use Types Packs/Day Years Used Date Smoking Tobacco: Former Cigarettes Vaping/E-cigarettes Smokeless Tobacco: Never Tobacco Cessation:Counseling Given: Not Answered Alcohol Use Standard Drinks/Week Comments Never 0 [...] on file Sexual Orientation Not on file Last Filed [...] Mass Index 47.01 08/26/2024 12:17 PM EDT Plan of Treatment Health Maintenance Due Date Last Done Comments DTaP,Tdap and Td Vaccines (1 - Tdap) 12/22/1983 Zoster (Shingles) Vaccine (1 of 2) 2014 Influenza Vaccine 11/24/2024 Adult BMI Follow Up Plan 07/30/2025 07/30/2024 Depression Screening 07/30/2025 07/30/2024 Adult BMI Screening 08/26/2025 08/26/2024 Tobacco Screening 08/26/2025 08/26/2024 Pap Smear 10/20/2025 10/20/2022, 08/28/2019 Medical Devices Not on file Procedures Procedure Name Priority Date/Time Associated Diagnosis Comments POCT INFLUENZA A/INFLUENZA B/SARS-COV-2 VERITOR Routine 07/30/2024 10:22 AM EDT Acute cough DRUG SCREEN, URINE Routine 06/19/2024 8: 52 AM EDT Anxiety LIPID PROFILE Routine 06/19/2024 8:52 AM EDT Mixed hyperlipidemia COMPREHENSIVE METABOLIC PANEL Routine 06/19/2024 8:52 AM EDT Essential hypertension THYROID PROFILE INCLUDES TSH FT4 Routine 06/19/2024 8:52 AM EDT Hypothyroidism due to acquired atrophy of thyroid PAP SMEAR Routine 10/20/2022 5:49 AM EDT Encounter for gynecological examination without abnormal finding from Last 3 Months or Most Recently Relevant to Health Maintenance Results * POCT Influenza A/Influenza B/SARS-COV-2 Veritor (07/30/2024 10:22 AM EDT) External Poct Influenza A Antigen Negative MANUALLY TRANSCRIBED RESULTS External Poct Influenza B Antigen Negative MANUALLY TRANSCRIBED RESULTS External POCT SARS COV 2 Veritor Presumptive Negative MANUALLY TRANSCRIBED RESULTS Swab 07/30/2024 10:2 2 AM EDT us Yesika Murrell DIGITAL MARKETING LEAD-DRY ROOM OPERATOR POINT OF CARE TEST O RDERABLES Final Result MANUALLY TRANSCRIBED RESULTS * (ABNORMAL) Thyroid profile includes TSH FT4 (06/19/2024 8:52 AM EDT) TSH 4.66 0.49 - 4.67 uIU/mL 06/19/2024 8:06 PM EDT [facility] T4, free 0.53(L) 0.61 - 1.60 ng/dL 06/19/2024 8:11 PM EDT [facility] PLASMA 06/19/2024 8:52 AM EDT 06/19/2024 6:14 PM EDT us Starrbell Solorio DIGITAL MARKETING LEAD-DRY ROOM OPERATOR LAB BLOOD ORDERABLES Fin al Result [facility] [address] [place] [address] * Drug Screen, Urine (06/19/2024 8:52 AM EDT) Amphetamine/metham phetamine Negative Negative^ Negative 06/19/2024 7:56 PM EDT [facility] Comment:AMPH/METH screening cut off = 1000 ng/mL Barbiturate Screen, Ur Negative Negative^ Negative 06/19/2024 7:56 PM EDT [facility] Comment:Barbiturates screeni ng cut off value = 200 ng/mL Benzodiazepine Screen, Urine Negative Negative^ Negative 06/19/2024 7:56 PM EDT [facility] Comment:Benzodiazepines scre ening cut off value = 200 ng/mL THC, urine Negative Negative^ Negative 06/19/2024 7:56 PM EDT [facility] Comment:Cannabinoids/THC scr eening cut off value = 50 ng/mL Cocaine (metabolite) Negative Negative^ Negative 06/19/2024 7:56 PM EDT [facility] Comment:Cocaine screening cu t off value = 300 ng/mL Opiate Quant, Ur Negative Negative^ Negative 06/19/2024 7:56 PM EDT [facility] Comment: Opiates screening cut off value = 300 ng/mL NOTE: This test is used for the detection of codeine, hydrocodone (>1000 ng/mL), morphine and hydromorphone (>900 ng/mL) in urine. Phencyclidine Negative Negative^ Negative 06/19/2024 7:56 PM EDT [facility] Comment:Phencyclidine screen ing cut off value = 25 ng/mL Oxycodone Negative Negative^ Negative 06/19/2024 7:56 PM EDT [facility] Comment: Oxycodone screening cut off value = 300 ng/mL NOTE: This test is used for the detection of oxycodone and oxymorphone in urine. Methadone Negative Negative^ Negative 06/19/2024 7:56 PM EDT [facility] Comment:Methadone screening cut off value = 300 ng/mL. Ecstasy Negative Negative^ Negative 06/19/2024 7:56 PM EDT [facility] Comment: Ecstasy screening cut off value = 500 ng/mL This report is intended for use in clinical monitoring or management of patients. Urine / Unknown 06/19/2024 8 :52 AM EDT 06/19/2024 6:15 PM EDT us Starr Solorio DIGITAL MARKETING LEAD-DRY ROOM OPERATOR URINE ORDERABLES Final R esult [facility] [address] [place] [address] * (ABNORMAL) Lipid profile (06/19/2024 8:52 AM EDT) Cholesterol 332(H) 150 - 200 mg/dL 06/19/2024 8:00 PM EDT [facility] Triglycerides 172(H) 27 - 150 mg/dL 06/19/2024 8:00 PM EDT [facility] HDL Cholesterol 65 >39 mg/dL 8:00 PM EDT [facility] Comment: HDL <40 mg/dL - High Risk HDL > or = 40mg/dL- Desirable HDL >60 mg/dL - Negative Risk VLDL 34(H) 0 - 30 mg/dL 06/19/2024 8:00 PM EDT [facility] LDL (calc) 233(H) <130 mg/dL 06/19/2024 8:00 PM EDT [facility] Comment: LDL <100 mg/dL - Desirable LDL >160 mg/dL - High Risk Cholesterol:HDL Ratio 5.1(H) 1.0 - 5.0 06/19/2024 8:00 PM EDT [facility] PLASMA 06/19/2024 8:52 AM EDT 06/19/2024 6:14 PM EDT us Starr Solorio DIGITAL MARKETING LEAD-DRY ROOM OPERATOR LAB BLOOD ORDERABLES Fin al Result [facility] [address] [place] [address] * Comprehensive metabolic panel (06/19/2024 8:52 AM EDT) Sodium 141 134 - 146 mmol/L 06/19/2024 8:00 PM EDT [facility] Potassium, Bld 4.4 3.5 - 5.0 mmol/L 06/19/2024 8:00 PM EDT [facility] Chloride 104 98 - 109 mmol/L 06/19/2024 8:00 PM EDT [facility] CO2 26 22 - 32 mmol/L 06/19/2024 8:00 PM EDT [facility] Anion gap 11 5 - 15 mmol/L 06/19/2024 8:00 PM EDT [facility] BUN 18 5 - 23 mg/dL 06/19/2024 8:00 PM EDT [facility] Creatinine 0.69 0.40 - 1.00 mg/dL 06/19/2024 8:00 PM EDT [facility] Comment:METHOD TRACEABLE TO IDMS STANDARD Glucose 92 65 - 99 mg/dL 06/19/2024 8:00 PM EDT [facility] Calcium 9.2 8.5 - 10.5 mg/dL 06/19/2024 8:00 PM EDT [facility] Total Protein 7.5 6.0 - 8.0 g/dL 06/19/2024 8:00 PM EDT [facility] Albumin 4.5 3.2 - 5.3 g/dL 06/19/2024 8:00 PM EDT [facility] Alkaline Phosphatase 91 39 - 130 U/L 06/19/2024 8:00 PM EDT [facility] AST 18 0 - 41 U/L 06/19/2024 8:00 PM EDT [facility] ALT 21 0 - 31 U/L 06/19/2024 8:00 PM EDT [facility] Total bilirubin 0.4 0.3 - 1.2 mg/dL 06/19/2024 8:00 PM EDT [facility] eGFR (CKD-EPI)non-rac e dependent >90 >59 ml/min/1.7 3sq.m 06/19/2024 8:00 PM EDT [facility] Comment: Reported eGFR is based on the CKD-EPI 2020 equation that does not use a race coefficient. Blood (PLASMA) 06/19/2024 8: 52 AM EDT 06/19/2024 6:14 PM EDT us Starr Solorio DIGITAL MARKETING LEAD-DRY ROOM OPERATOR LAB BLOOD ORDERABLES Fin al Result [facility] [address] [place] [address] * Pap Smear (10/20/2022 5:49 AM EDT) 10/20/2022 5:49 AM EDT 10/20/2022 5:50 AM EDT Narrative COPATH - 10/23/2022 1:23 PM EDT [facility] [address] [place] [address] Gynecologic Cytology Consultation Patient Name:KAYLEE FIGUEROA:1965 (Age: 56)Gender:FTaken:10/20/2022Reported:10/23/2022hysician(s):Starr Solorio CNPCopmookie To: Rec. #:[id number]: #[id number] Final Cytologic Interpretation ThinPrep Pap Test (Cervical): Satisfactory for evaluation. NEGATIVE FOR INTRAEPITHELIAL LESION OR MALIGNANCY. [facility] [place]10/23/2022 Interpretation performed at [facility], [address] [place], [place] [id number], License number: [id number]. Electronically Signed Out By LUANN Moncada(ASCP) Date of Last Menstrual Period: (None Given) Other Clinical Conditions: Postmenopausal Z01.419 Registered Nurse Obstetrics exam wo/abn findings Source of Specimen ThinPrep Pap Test (Cervical) Thin Prep Pap (BLOCK TRIMMER) Fee Code(s): G0145 Starr Solorio DIGITAL MARKETING LEAD-DRY ROOM OPERATOR PATHOLOGY/CYTOLOGY ORDER [place] Final Result COPATH from Last 3 Months or Most Recently Relevant to Health Maintenance Insurance ANTH Care Teams Plier Worker Relationship Specialty Start Date End Date Starr Solorio, DIGITAL MARKETING LEAD-DRY ROOM OPERATOR [address] [place] [address] PCP - General Internal Medicine 05/17/21
--- OUTSIDE RECORDS SUMMARY | 2024-08-27 07:08 | XMS_ITS | Encounter Summary ---
Author Organization [facility] [employer] Address [facility] [id number] [address] [place] [address] Care Team Providers Care Cyber Engineer Name Role Phone OsminStarr APRN-PIZZA CHEF Primary Care Provider + Encounter Details Date Type Department Care Team (Late st Contact Info) Description 08/26/2024 [facility]phone [facility] [address] [place] [address] Emily Hinton CMA Social History [...] Telephone Encounter - Emily Hinton CMA - 08/26/2024 11:55 AM EDT Pt called and I read note From Dr Lopez about her on going problem. Pt states she understands and Iencouraged her to go to [facility]. She states she will. documented in this encounter Plan of Treatment Not on file documented as of this encounter Visit Diagnoses Not on filedocumented in this encounter Additional Health Concerns Assessment Noted Time PHQ-9 Depression Total Score: 0 07/31/19 25 9:59 AM EDT A Body Mass Index follow-up plan has been documented for the patient 07/30/2024 10:31 AM EDT documented as of this encounter Care Teams Cyber Engineer Relationship Specialty Start Date End Date Starr Solorio APRN-PIZZA CHEF [address] [place] [address] PCP - General Internal Medicine 05/17/21 documented as of this encounter
--- OUTSIDE RECORDS SUMMARY | 2024-08-27 07:08 | XMS_ITS | Encounter Summary ---
Author Organization [facility] [employer] Address [facility] [id number] [address] [place] [address] Care Team Providers Care Veneer Lathe Operator Name Role Phone Starr Solorio APRN-CANDY POLISHER Primary Care Provider + Encounter Details Date Type Department Care Team (Late st Contact Info) Description 06/23/2024 [facility] [address] [place] [address] Emily Hinton CMA Social History [...] Telephone Encounter - Emily Hinton CMA - 06/23/2024 8:19 AM EDT ----- Message from DALLAS Rucker sent at 06/23/2024 7:31 AM EDT ----- Please call pt and let her know results since there are med changes * Telephone Encounter - Anita Garcia CMA - 06/23/2024 8:19 AM EDT Starr, I spoke with Ginette and she is fine with the statin and go ahead and send into the pharmacy. documented in this encounter Plan of Treatment Not on file documented as of this encounter Visit Diagnoses Not on filedocumented in this encounter Additional Health Concerns Assessment Noted Time PHQ-9 Depression Total Score: 0 06/20/19 25 8:41 AM EDT A Body Mass Index follow-up plan has been documented for the patient 10/20/2022 12:37 PM EDT documented as of this encounter Care Teams Veneer Lathe Operator Relationship Specialty Start Date End Date Starr Solorio APRN-CNP [address] [place] [address] PCP - General Internal Medicine 05/17/21 documented as of this encounter
[2024-08-27 07:10] VITALS: BP 158/96; PULSE 88; TEMP 37.1; O2SAT 98; BMI 45.7
--- NOTE | 2024-08-27 07:22 | CT_ITS ---
The [address] [address] Patient Name: ANGELES FIGUEROA MRN: [id number] date: 1965 Sex: F Assigned Patient Location: ER Current Patient Location: [facility] Accession/Order Number: [id number] Exam Date: 08/27/2024 08:33 Report Date: 08/27/2024 08:42 At the request of: CLIFF BARROSO MD Procedure: CT abdomen pelvis w con CT ABDOMEN AND PELVIS WITH CONTRAST COMPARISON: 07/10/2024 CLINICAL DATA: Left lower quadrant pain. Constipation. Spiral images were obtained through the abdomen and pelvis following [address] exam was performed using one or more following dose reduction techniques: Automated exposure control, adjustment of the mA and/or kV according to patient size, or use of iterative reconstruction technique. Limited cuts through the lung bases show no contributory findings. Mild fatty infiltration of the liver is suspected. There are no calcified gallstones. The spleen, pancreas and adrenal glands show no acute findings. There are symmetric renal nephrograms, without hydronephrosis. A small left renal cyst is again seen. The abdominal aorta is normal caliber. Small retroperitoneal and tiny mesenteric lymph nodes are still noted. There is no ascites. The small bowel loops are normal caliber. There is stool along the colon. Left-sided colonic diverticula are seen. Postoperative and degenerative changes are present at the spine. Images through the pelvis show normal caliber small bowel loops. No appendiceal inflammation is seen. There is minimal distal colonic stool. There is a persistent segment of sigmoid colon with wall thickening and pericolonic inflammation. There are diverticula and this is compatible with diverticulitis. There is no developing diverticular abscess or perforation. The uterus and adnexa show no acute findings. The urinary bladder is under distended and the wall appears thickened. There are small inguinal lymph nodes. No ascites is present. CT/CT abdomen pelvis w con IMPRESSION: FATTY LIVER. LEFT RENAL CYST. NO BOWEL OR URINARY TRACT OBSTRUCTION. CONTINUED SIGMOID DIVERTICULITIS, WITHOUT DEVELOPING ABSCESS OR PERFORATION. Impression dictated by: Ysabel Appiah M.D. 08/27/2024 8:42 AM Dictation Location: [place] [address] Electronically authenticated by: [id number] Y Date: 08/27/2024 08:42
--- NOTE | 2024-08-27 07:32 | ED.GENADUL1 ---
HPI HPI - General Adult General Chief complaint: Abdominal Pain Stated complaint: CONSTIPATION BLOATING ABDOMINAL PAIN Time Seen by Provider: 08/27/24 07:15 Source: patient Mode of arrival: walk-in Limitations: no limitations History of Present Illness HPI narrative: 58-year-old female presents to the emergency department for left lower quadrant pain. It started a few days ago and she thinks it is diverticulitis. She is not passing any blood nor vomiting. She has been nauseous. She states she has not been able to have a good bowel movement recently as well. No trauma or dysuria or flank pain. Related Data Home Medications ?Medication ?Instructions ?Recorded ?Confirmed levothyroxine 137 mcg tablet 137 mcg PO DAILY 01/04/23 08/27/24 paroxetine HCl 40 mg tablet 40 mg PO DAILY 01/04/23 08/27/24 ropinirole 3 mg tablet 3 mg PO DAILY 01/04/23 08/27/24 Previous Rx's ?Medication ?Instructions ?Recorded acetaminophen 300 mg-codeine 30 mg 1 tab PO Q6H PRN pain 5 days #20 08/27/24 tablet tabs amoxicillin 875 mg-potassium 1 tab PO BID #20 tabs 08/27/24 clavulanate 125 mg tablet ondansetron 4 mg disintegrating 4 mg PO Q6H PRN nausea and 08/27/24 tablet vomiting #20 tabs Allergies Allergy/AdvReac Type Severity Reaction Status Date / Time ciprofloxacin (From Cipro) Allergy Intermediate Hives Verified 08/27/24 07:10 metronidazole (From Flagyl) Allergy Intermediate Hives Verified 08/27/24 07:10 Opioid HPI Opioid Management Most Recent Opioid Data: Last Pain Scale 2 Today, 08:09 Last ED Pain Assessment Today, 08:09 Last MAR Pain Assessment Today, 07:40 Review of Systems ROS Narrative A ten point review of systems is negative except as noted above. PFSH PFSH Social History Little interest or pleasure in doing things: not at all Feeling down, depressed, or hopeless: not at all Exam Narrative Exam Narrative: Nurses note and vital signs reviewed and patient is not hypoxic. General: The patient appears well and in no apparent distress. Patient is resting comfortably on cart. Skin: Warm, dry, no pallor noted. There is no rash noted. Head: Normocephalic, atraumatic Eye: Normal conjunctiva, no drainage Ears, Nose, Mouth, and Throat: oral mucosa is moist. Nares patent. Cardiovascular: Regular Rate and Rhythm Respiratory: Patient is in no distress, no accessory muscle use, lungs are clear to auscultation, no wheezing, rales or rhonchi Back: non-tender, no CVA tenderness bilaterally to percussion. GI: Obese. Tenderness diffusely particular in the left lower quadrants. Musculoskeletal: The patient has no evidence of calf tenderness, no pitting edema, symmetrical pulses noted bilaterally Neurological: A&O, normal speech Psychiatric: Cooperative Constitutional Vital Signs, click to edit/add: Last Vital Signs Temp 98.8 F 08/27/24 07:10 Pulse 85 08/27/24 08:05 Resp 18 08/27/24 08:05 BP 121/61 08/27/24 08:05 Pulse Ox 96 08/27/24 08:05 O2 Del Method Room Air 08/27/24 08:05 Course Vital Signs Vital signs: Vital Signs Temperature 98.8 F 08/27/24 07:10 Pulse Rate 88 08/27/24 07:10 Respiratory Rate 18 08/27/24 07:10 Blood Pressure 158/96 H 08/27/24 07:10 Pulse Oximetry 98 08/27/24 07:10 Oxygen Delivery Method Room Air 08/27/24 07:10 Temperature 98.8 F 08/27/24 07:10 Pulse Rate 85 08/27/24 08:05 Respiratory Rate 18 08/27/24 08:05 Blood Pressure 121/61 08/27/24 08:05 Pulse Oximetry 96 08/27/24 08:05 Oxygen Delivery Method Room Air 08/27/24 08:05 Medical Decision Making [facility] Narrative Medical decision making narrative: Acute uncomplicated diverticulitis is identified. She is allergic to Cipro and Flagyl so she has been prescribed Augmentin and she was also prescribed Tylenol 3 and Zofran. Follow-up with PCP. She had a recent colonoscopy. Treatment diagnosis and follow-up were discussed with the patient. Differential Diagnosis Differential Diagnosis: Diverticulitis, constipation, abscess, perforation Lab Data Lab results reviewed: Yes I reviewed the patient's lab results Labs: Lab Results 08/27/24 08/27/24 Range/Units 07:30 07:36 WBC 8.5 (4.0-11.0) 10^3/uL RBC 4.25 (4.20-5.40) 10^6/uL Hgb 12.7 (12.0-16.0) g/dL Hct 37.2 (36.0-48.0) % MCV 87.5 (81.0-99.0) fL MCH 29.9 (26.7-34.0) pg MCHC 34.1 (29.9-35.2) g/dL RDW 13.7 (11.0-15.0) % Plt Count 329 (150-450) 10^3/uL MPV 8.9 L (9.5-13.5) fL Neut % (Auto) 66.3 (43.0-75.0) % Lymph % (Auto) 25.8 (20.5-60.0) % Centre % (Auto) 5.2 (1.7-12.0) % Eos % (Auto) 2.0 (0.9-7.0) % Baso % (Auto) 0.2 (0.2-2.0) % Neut # (Auto) 5.6 (1.4-6.5) 10^3/uL Lymph # (Auto) 2.2 (1.2-3.8) 10^3/uL Centre # (Auto) 0.4 (0.3-0.8) 10^3/uL Eos # (Auto) 0.2 (0.0-0.7) 10^3/uL Baso # (Auto) 0.0 (0.0-0.1) 10^3/uL Abs Immat Gran (auto) 0.04 H (0.00-0.03) 10^3/uL Imm/Tot Granulo (auto) 0.5 (0.0-0.5) % Sodium 140 (136-145) mmol/L Potassium 4.1 (3.5-5.1) mmol/L Chloride 102 (98-107) mmol/L Carbon Dioxide 26.6 (21.0-32.0) mmol/L Anion Gap 15.5 BUN 18.0 (7.0-18.0) mg/dL Creatinine 0.80 (0.55-1.02) mg/dL Est GFR ( Amer) >60 (>=60 mL/min/1.73m^2) Est GFR (Non-Af Amer) >60 (>=60 mL/min/1.73m^2) BUN/Creatinine Ratio 22.5 Glucose 102 (74-106) mg/dL Calcium 9.0 (8.5-10.1) mg/dL Urine Color Lt. yellow (YELLOW) Urine Clarity Clear (CLEAR) Urine pH 6.0 (5.0-9.0) Ur Specific [place] <=1.005 A (1.005-1.025) Urine Protein Negative (NEG/TRACE) mg/dL Urine Glucose (UA) Negative (NEGATIVE) mg/dL Urine Ketones Negative (NEGATIVE) mg/dL Urine Occult Blood Negative (NEGATIVE) Urine Nitrite Negative (NEGATIVE) Urine Bilirubin Negative (NEGATIVE) Urine Urobilinogen 0.2 (0.2-1.0) EU/dL Ur Leukocyte Esterase Negative (NEGATIVE) Urine RBC None seen (0-2) #/HPF Urine WBC None seen (NONE SEEN) #/HPF Ur Squamous Epith Cells Rare (NONE/RARE) #/LPF Urine Crystals None seen (None Seen) #/HPF Urine Bacteria None seen (NONE SEEN) #/HPF Urine Casts None seen (NONE SEEN) #/LPF Urine Mucus None seen (NONE SEEN) Ur Culture Indicated? No Imaging Data CT scan - abdomen: Radiologist's impression: ITS Impressions Abdomen/Pelvis CT 08/27/24 07:22 IMPRESSION: FATTY LIVER. LEFT RENAL CYST. NO BOWEL OR URINARY TRACT OBSTRUCTION. CONTINUED SIGMOID DIVERTICULITIS, WITHOUT DEVELOPING ABSCESS OR PERFORATION. Impression dictated by: Ysabel Appiah M.D. 08/27/2024 8:42 AM Dictation Location: [place] [address] Electronically authenticated by: [id number] Y Date: 08/27/2024 08:42 Discharge Plan Discharge Chief Complaint: Abdominal Pain Clinical Impression: Diverticulitis Patient Disposition: Home, Self-Care Time of Disposition Decision: 08:53 Condition: Good Mode of Transportation: Private Vehicle Prescriptions / Home Meds: New amoxicillin-pot clavulanate 875-125 mg tablet 1 tab PO BID Qty: 20 0RF acetaminophen-codeine 300-30 mg tablet 1 tab PO Q6H PRN (Reason: pain) 5 Days Qty: 20 0RF ondansetron 4 mg tablet,disintegrating 4 mg PO Q6H PRN (Reason: nausea and vomiting) Qty: 20 0RF No Action ropinirole 3 mg tablet 3 mg PO DAILY paroxetine HCl 40 mg tablet 40 mg PO DAILY levothyroxine 137 mcg tablet 137 mcg PO DAILY Print Language: Cuban Instructions: Diverticulitis (ED) Referrals: TOBI JOHNSON [Primary Care Provider, Unknown] - 1 week
[2024-08-27] MEDS: ONDANSETRON PF 4 MG/2 ML VIAL IV (07:39)
[2024-08-27] MEDS: MORPHINE SULFATE 4 MG/ML VIAL IV (07:40)
[2024-08-27 07:44] LABS: Basophils Percent Auto 0.2 % (0.2-2.0); Eosinophils Absolute Auto 0.2 10^3/uL (0.0-0.7); Hematocrit 37.2 % (36.0-48.0); Hemoglobin 12.7 g/dL (12.0-16.0); Immature Granulocytes Abs Auto 0.04 10^3/uL (0.00-0.03); Immature Granulocytes Pct Auto 0.5 % (0.0-0.5); Lymphocytes Absolute Auto 2.2 10^3/uL (1.2-3.8); Lymphocytes Percent Auto 25.8 % (20.5-60.0); Mean Corpuscular HGB Conc 34.1 g/dL (29.9-35.2); Mean Corpuscular Hemoglobin 29.9 pg (26.7-34.0); Mean Corpuscular Volume 87.5 fL (81.0-99.0); Mean Platelet Volume 8.9 fL (9.5-13.5); Monocytes Absolute Auto 0.4 10^3/uL (0.3-0.8); Monocytes Percent Auto 5.2 % (1.7-12.0); Neutrophils Absolute Auto 5.6 10^3/uL (1.4-6.5); Neutrophils Percent Auto 66.3 % (43.0-75.0); Platelet Count 329 10^3/uL (150-450); Red Blood Count 4.25 10^6/uL (4.20-5.40); Red Cell Distribution Width 13.7 % (11.0-15.0); White Blood Count 8.5 10^3/uL (4.0-11.0)
[2024-08-27 07:45] LABS: Bilirubin Urine NEGATIVE (NEGATIVE); Blood Urine NEGATIVE (NEGATIVE); Clarity Urine CLEAR (CLEAR); Color Urine LT. YELLOW (YELLOW); Glucose Urine UA NEGATIVE (NEGATIVE); Ketones Urine NEGATIVE (NEGATIVE); Leukocyte Esterase Urine NEGATIVE (NEGATIVE); Nitrite Urine NEGATIVE (NEGATIVE); Protein Urine NEGATIVE (NEG/TRACE); Specific Gravity Urine <=1.005 (1.005-1.025); Urobilinogen Urine 0.2 EU/dL (0.2-1.0)
[2024-08-27 07:51] LABS: Anion Gap 15.5; BUN Creatinine Ratio 22.5; Carbon Dioxide 26.6 mmol/L (21.0-32.0); Chloride 102 mmol/L (98-107); Estimated GFR (African America >60 (>=60 mL/min/1.73m^2); Estimated GFR (Non-African Ame >60 (>=60 mL/min/1.73m^2); Glucose 102 mg/dL (74-106); Potassium 4.1 mmol/L (3.5-5.1); Sodium 140 mmol/L (136-145)
[2024-08-27 07:58] LABS: Bacteria Urine NONE SEEN #/HPF (NONE SEEN); Cast Seen? NONE SEEN #/LPF (NONE SEEN); Crystals Seen? None Seen #/HPF (None Seen); Mucus Urine NONE SEEN (NONE SEEN); RBC Urine NONE SEEN #/HPF (0-2); Squamous Epithelial Cell Urine RARE #/LPF (NONE/RARE); Urine Culture Indicated NO; WBC Urine NONE SEEN #/HPF (NONE SEEN)
[2024-08-27 08:05] VITALS: BP 121/61; PULSE 85; O2SAT 96
[2024-08-27 09:18] VITALS: BP 158/95; PULSE 68; O2SAT 96
== END 2024-08-27 09:21 | disposition home or self-care (01) ==
PROVIDERS: Emergency Provider Emergency Medicine; PCP Nurse Practitioner Family
DX: K57.32 Diverticulitis of large intestine without perforation or abscess without bleeding (principal)
CPT/HCPCS: 36415; 74177; 80048; 81001; 85025; 96374; 96375; 99285; J2270; J2405; Q9967

== ENCOUNTER 2025-01-11 19:23 | Emergency (ER) | payer BC, SELFPAY ==
[2025-01-11 19:28] VITALS: BP 150/95; PULSE 111; TEMP 37; O2SAT 93; BMI 45.7
--- OUTSIDE RECORDS SUMMARY | 2025-01-11 19:32 | XMS_ITS | CCD ---
Author Organization [facility] Care Team Providers Care Carton Liner Name Role Phone ANISA, DR GARBER Attending Unavailable ANISA, DR GARBER Admitting Unavailable MISC, DR RIVERA Primary Care Unavailable SYED, DR NEL Givens Consulting Unavailable ANISA, DR GARBER Consulting Unavailable STEPANIC, DR CHAMBERLAIN Attending Unavailable STEPANIC, DR CHAMBERLAIN Admitting Unavailable ALEX, [facility] Primary Care Unavailable STEPANIC, DR CHAMBERLAIN Consulting Unavailable Crystal Haney Consulting Unavailable ALEX, TOBI Admitting Unavailable ALEX, [facility] Primary Care Unavailable ALEX, TOBI Attending Unavailable SYED, DR NEL Givens Consulting [facility] Unavailable JCARLOS HAYDEN Attending Unavailable JCARLOS HAYDEN Admitting Unavailable MISC, DR RIVERA Primary Care Unavailable ALEX, [facility] Primary Care Unavailable ABDIEL JAUREGUI Admitting Unavailable ANISA, DR GARBER Consulting Unavailable ABDIEL JAUREGUI Attending Unavailable AHMED LUIS Consulting Unavailable ALEX, TOBI Primary Care Unavailable [...] Alex DE LA CRUZ Tobi Unavailable Bert oLpez MD Primary Care Provider [phone] JCARLOS LANGE Attending Unavailable JCARLOS LANGE Referring Unavailable JR. BENITEZ GEORGE C Attending Unavaila ble Alex SALES OUTFITTER-MULTI TOWNSHIP ASSESSOR, Tobi L Primary Care Provider [facility]obi L Primary Care Provider ALEX, TOBI L Referring Unavailable ALEX, TOBI L Primary Care Unavailable VERONICA MURRELL Attending Unavailable ALEX, TOBI L Referring Unavailable ALEX, TOBI L Primary Care Unavailable ALEX, TOBI L Attending Unavailable ALEX, TOBI L Referring Unavailable ALEX, TOBI L Primary Care Unavailable ALEX, TOBI L Primary Care Unavailable Allergies Allergy Classification Reported Allergen(s) Allergy Type Date of Onset Reaction(s) Facility (9 sources) QUEtiapine; Translations: [QUETIAPINE] Drug Allergy 02-11-2021 [facility] (4 sources) Ciprofloxacin; Translations: [CIPROFLOXACIN] Drug Allergy 07-30-2024 [facility] (4 sources) metroNIDAZOLE; Translations: [METRONIDAZOLE] Drug Allergy 07-30-2024 [facility] Medications Current Medications Medication Drug Class(es) Dates [...] oral solution (2 sources) alpha-Adrenergic Agonist, Uncompetitive C-ukrgzk-X-asparta te Receptor Antagonist, Sigma-1 Agonist Start: 5 take 5 mL by mouth four times daily as needed brompheniramine-pseud oeph-DM 2-30-10 mg/5 mL syrup Indications: Acute cough Take 5 mL by mouth 4 (four) times a day as needed for allergies. 120 mL 07/30/2024 Active LORazepam 0.5 mg oral tablet (11 sources) Benzodiazepine Start: End: take 1 tablet by mouth once daily [...] Problem Classification Problem Date Documented Date Episodic/Chronic Abdominal pain (2 sources) Abdominal pain Onset: 08-26-2024 Episodic Anxiety disorders (17 sources) Anxiety disorder, unspecified; Translations: [Anxiety disorder] Onset: 02-23-2015 05-28-2024 Chronic Disorders of lipid metabolism (16 sources) Pure hypercholesterolemia, unspecified; Translations: [Mixed hyperlipidemia] Onset: 02-23-2015 12-01-2021 Chronic Essential hypertension (3 sources) Essential hypertension; [...] 12-01-2021 12-01-2021 Chronic Other non-traumatic joint disorders (6 sources) Pain in left knee; Translations: [Pain [...] (BMI) of 45.0 to 49.9 in adult ([facility])] 06-19-2024 Chronic Other upper respiratory infections (2 [...] 07-30-2024 03-22-2023 Other aftercare (1 source) Other snf (current) drug therapy; Translations: [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 ([id number]) [address], [address] [place] [address] ALP [Catalytic activity/Vol] 91 U/L Normal 39-130 [facility] Comment on above: Performed By: #### C MAKEDA, 14676-7, THYR #### [facility] ([id number]) [address], [address] [place] [address] ALT [Catalytic activity/Vol] 21 U/L Normal 0-31 [facility] Comment on above: Performed By: #### C MAKEDA, 23536-8, THYR #### [facility] ([id number]) [address], [address] [place] [address] Anion gap [Moles/Vol] 11 mmol/L Normal 5-15 [facility] Comment on above: Performed By: #### Oma ASHFORD 41426-4, THYR #### [facility] ([id number]) [address], [address] [place] [address] AST [Catalytic activity/Vol] 18 U/L Normal 0-41 [facility] Comment on above: Performed By: #### Isa Ernandez MP31-1, THYR #### [facility] ([id number]) [address], [address] [place] [address] Bilirubin [Mass/Vol] 0.4 mg/dL Normal 0.3-1.2 [facility] [place] Comment on above: Performed By: #### Oma ASHFORD 63078-9, THYR #### [facility] ([id number]) [address], [address] [place] [address] Calcium [Mass/Vol] 9.2 mg/dL Normal 8.5-10.5 [facility] Comment on above: Performed By: #### Oma ASHFORD 94616-4, THYR #### [facility] ([id number]) [address], [address] [place] [address] Chloride [Moles/Vol] 104 mmol/L Normal 98-109 [facility] [place] Comment on above: Performed By: #### Oma ASHFORD 92113-9, THYR #### [facility] ([id number]) [address], [address] [place] [address] CO2 [Moles/Vol] 26 mmol/L Normal 22-32 [facility] Comment on above: Performed By: #### Oma ASHFORD 11104-2, THYR #### [facility] ([id number]) [address], [address] [place] [address] Creatinine [Mass/Vol] 0.69 mg/dL Normal 0.40-1.00 [facility] Comment on above: Result Comment: METH OD TRACEABLE TO IDMS STANDARD Performed By: #### C MAKEDA, 02514-2, THYR #### [facility] ([id number]) [address], [address] [place] [address] eGFR (CKD-EPI) NON-RACE DEPENDENT >90 Normal >59 [facility] Comment on above: Result Comment: Reported eGFR is based on the CKD-EPI 2020 equation that does not use a race coefficient. Performed By: #### C MAKEDA, 43451-4, THYR #### [facility] ([id number]) [address], [address] [place] [address] Glucose [Mass/Vol] 92 mg/dL Normal 65-99 [facility] Comment on above: Performed By: #### Oma ASHFORD, 42282-6, THYR #### [facility] ([id number]) [address], [address] [place] [address] Potassium [Moles/Vol] 4.4 mmol/L Normal 3.5-5.0 [facility] Comment on above: Performed By: #### Oma ASHFORD, 39773-4, THYR #### [facility] ([id number]) [address], [address] [place] [address] Protein [Mass/Vol] 7.5 g/dL Normal 6.0-8.0 [facility] Comment on above: Performed By: #### Oma ASHFORD, 74745-4, THYR #### [facility] ([id number]) [address], [address] [place] [address] Sodium [Moles/Vol] 141 mmol/L Normal 134-146 [facility] Comment on above: Performed By: #### Oma ASHFORD, 44139-1, THYR #### [facility] ([id number]) [address], [address] [place] [address] Urea nitrogen [Mass/Vol] 18 mg/dL Normal 5-23 [facility] Comment on above: Performed By: #### C MP, 02388-0, THYR #### [facility] ([id number]) [address], [address] [place] [address] DRUG SCREEN, URINEon 025 AMPHETAMINE/METHAMP Negative Normal NEG [facility] Comment on above: Result Comment: AMPH /METH screening cut off = 1000 ng/mL Performed By: #### D ROCHE #### [facility] ([id number]) [address], [address] [place] [address] BARBITURATES Negative Normal NEG [facility] Comment on above: Result Comment: Keara iturates screening cut off value = 200 ng/mL Performed By: #### D ROCHE #### [facility] ([id number]) [address], [address] [place] [address] BENZODIAZEPINES Negative Normal NEG [facility] Comment on above: Result Comment: Cuong odiazepines screening cut off value = 200 ng/mL Performed By: #### D ROCHE #### [facility] ([id number]) [address], [address] [place] [address] CANNABINOIDS Negative Normal NEG [facility] Comment on above: Result Comment: Reina abinoids/THC screening cut off value = 50 ng/mL Performed By: #### D ROCHE #### [facility] ([id number]) [address], [address] [place] [address] COCAINE METABOLITE Negative Normal NEG [facility] Comment on above: Result Comment: Coca ine screening cut off value = 300 ng/mL Performed By: #### D ROCHE #### [facility] ([id number]) [address], [address] [place] [address] ECSTASY Negative Normal NEG [facility] Comment on above: Result Comment: Ecst asy screening cut off value = 500 ng/mL This report is intended for use in clinical monitoring or management of patients. Performed By: #### D ROCHE #### [facility] ([id number]) [address], [address] [place] [address] METHADONE Negative Normal NEG [facility] Comment on above: Result Comment: Meth adone screening cut off value = 300 ng/mL. Performed By: #### D ROCHE #### [facility] ([id number]) [address], [address] [place] [address] OPIATES Negative Normal NEG [facility] Comment on above: Result Comment: Opia mat screening cut off value = 300 ng/mL NOTE: This test is used for the detection of codeine, hydrocodone (>1000 ng/mL), morphine and hydromorphone (>900 ng/mL) in urine. Performed By: #### D ROCHE #### [facility] ([id number]) [address], [address] [place] [address] OXYCODONE Negative Normal NEG [facility] Comment on above: Result Comment: Oxyc odone screening cut off value = 300 ng/mL NOTE: This test is used for the detection of oxycodone and oxymorphone in urine. Performed By: #### D ROCHE #### [facility] ([id number]) [address], [address] [place] [address] PHENCYCLIDINE Negative Normal NEG [facility] Comment on above: Result Comment: Phen cyclidine screening cut off value = 25 ng/mL Performed By: #### D ROCHE #### [facility] ([id number]) [address], [address] [place] [address] Lipid 1996 panelon 5 Cholesterol [Mass/Vol] 332 mg/dL High 150-200 [facility] Comment on above: Performed By: #### C , 44190-8, THYR #### [facility] ([id number]) [address], [address] [place] [address] Cholesterol in HDL [Mass/Vol] 65 mg/dL Normal >39 [facility] Comment on above: Result Comment: HDL <40 mg/dL - High Risk HDL > or = 40mg/dL- Desirable HDL >60 mg/dL - Negative Risk Performed By: #### Oma ASHFORD, 13961-3, THYR #### [facility] ([id number]) [address], [address] [place] [address] Cholesterol in LDL [Mass/Vol] 233 mg/dL High <130 [facility] Comment on above: Result Comment: LDL <100 mg/dL - Desirable LDL >160 mg/dL - High Risk Performed By: #### Oma ASHFORD, 23757-3, THYR #### [facility] ([id number]) [address], [address] [place] [address] Cholesterol in VLDL [Mass/Vol] 34 mg/dL High 0-30 [facility] Comment on above: Performed By: #### Oma ASHFORD, 95445-6, THYR #### [facility] ([id number]) [address], [address] [place] [address] CHOLESTEROL:HDL 5.1 High 1.0-5.0 [facility] Comment on above: Performed By: #### Oma ASHFORD, 15862-7, THYR #### [facility] ([id number]) [address] [address] [place] [address] Triglyceride [Mass/Vol] 172 mg/dL High 27-150 [facility] Comment on above: Performed By: #### Oma ASHFORD, 84506-7, THYR #### [facility] ([id number]) [address] [address] [place] [address] THYROID PROFILEon 06-19-2024 Free T4 [Mass/Vol] 0.53 ng/dL Low 0.61-1.60 [facility] Comment on above: Performed By: #### C MAKEDA, 42313-6, THYR #### [facility] ([id number]) [address], [address] [place] [address] TSH 4.66 uIU/mL Normal 0.49-4.67 [facility] Comment on above: Performed By: #### C MAKEDA, 09711-4, THYR #### [facility] ([id number]) [address], [address] [place] [address] C-reactive proteinon 024 CRP [Mass/Vol] 0.7 mg/dL 0.000 - 0.744 mg/dL [facility] Comment on above: PERFORMED AT [facility] [address],[place] [address] CRP [Mass/Vol]on 04-27-2023 [facility] e LIPID PANEL, STANDARDon 07-25 Cholesterol [Mass/Vol] 243 mg/dL High <200 [facility] Comment on above: Order Comment: FASTI NG:NO FASTING: NO Performed By: #### 7 600, 75929 #### [facility] [address], [address] [place], [place] [address] Auto Tune Up Mechanic: Curtis Llanos MD Cholesterol in HDL [Mass/Vol] 57 mg/dL Normal > OR = 50 [facility] Comment on above: Order Comment: FASTI NG:NO FASTING: NO Performed By: #### 7 600, 03273 #### [facility] [address], [address] [place] [address] Auto Tune Up Mechanic: Curtis Llanos MD Cholesterol in LDL [Mass/Vol] [...] equation in the estimation of LDL-C. Nabor STAUFFER et al. JEYSON. 2013;310(19): 4794-4981 (http://Rapleaf.Evestra/faq/DZK265) Performed By: #### 7 600, 41233 #### [facility] [address], [address] [place] [address] Auto Tune Up Mechanic: Curtis Llanos MD Cholesterol.total/Ch olesterol in HDL [Mass ratio] 4.3 {ratio} Normal <5.0 [facility] Comment on above: Order Comment: FASTI NG:NO FASTING: NO Performed By: #### 7 600, 07820 #### [facility] [address], [address] [place] [address] Auto Tune Up Mechanic: Curtis Llanos MD NON HDL CHOLESTEROL 186 mg/dL (calc) High <130 [facility] Comment on above: Order Comment: FASTI NG:NO FASTING: NO Result Comment: For patients with diabetes plus 1 major ASCVD risk factor, treating to a non-HDL-C goal of <100 mg/dL (LDL-C of <70 mg/dL) is considered a therapeutic option. Performed By: #### 7 600, 76513 #### [facility] [address], [address] [place] [address] Auto Tune Up Mechanic: Curtis Llanos MD Triglyceride [Mass/Vol] 217 mg/dL High <150 [facility] Comment on above: Order Comment: FASTI NG:NO FASTING: NO Result Comment: If a non-fasting specimen was collected, consider repeat triglyceride testing on a fasting specimen if clinically indicated. Ruth et al. J. of Clin. Lipidol. 2015;9:129-169. Performed By: #### 7 600, 19331 #### [facility] [address], [address] [place] [address] Auto Tune Up Mechanic: Curtis Llanos MD TSH+FREE T4on 08-13-2021 Free T4 [Mass/Vol] 0.9 ng/dL Normal 0.8-1.8 [facility] Comment on above: Performed By: #### 7 600, 07232 #### [facility] [place] [address] Auto Tune Up Mechanic: Curtis Llanos MD TSH Qn 3.76 m[IU]/L Normal 0.40-4.50 [facility] Comment on above: Performed By: #### 7 600, 78067 #### [facility] [address], [address] [place] [address] Auto Tune Up Mechanic: Curtis Llanos MD US JAMIE DOP LEG [...] by: CRYSTAL HANEY Date: 2021-06-06 20:20 Normal [facility] TSH+FREE T4on 01-05-2021 Free T4 [Mass/Vol] 1.1 ng/dL Normal 0.8-1.8 [facility] Comment on above: Order Comment: FASTI NG:UNKNOWN FASTING: UNKNOWN Performed By: #### 5 8984 #### [facility] [address], [address] [place] [address] Auto Tune Up Mechanic: Curtis Llanos MD TSH Qn 1.85 m[IU]/L Normal 0.40-4.50 [facility] Comment on above: Order Comment: FASTI NG:UNKNOWN FASTING: UNKNOWN Performed By: #### 5 8984 #### [facility] [place] [address] Auto Tune Up Mechanic: Curtis Llanos MD MRI KNEE LT WO [...] NEL LYNCH Date: 2021-01-03 17:13 Normal [facility] XR KNEE LT 4V or >on 021 [...] LUIS RUDD Date: 2020-12-19 13:02 Normal [facility] Covid-19 PCR (CVDTBH)on SARS-CoV-2 (COVID-19) RNA RICHARD+probe Ql (Unsp spec) Not detected Normal NOT DETECTED [facility] Comment on above: Result Comment: This test is not yet approved or cleared by the [place] FDA. When there are no FDA-approved or cleared tests available, and other criteria are met, FDA can make tests available under an emergency access mechanism called an Emergency Use Authorization (EUA). The EUA for this test is supported by the [place] of Health and Human Service's (HHS's) declaration [...] consistent with SARS-CoV-2. Performed By: #### C [facility] #### [facility] [address] [place] [address] Robles Grady MRI KNEE LT WO CONon 021 MRI [...] by: NEL LYNCH Date: 2020-08-06 15:06 Normal [facility] Covid-19 PCR (CVDTBH)on 07-24 Sample Type Test performed using RT-PCR from a nasopharyngeal collected specimen. Normal [facility] Comment on above: Performed By: #### C VDTB ####[facility] [address] [place], [place] [address]OtfvyzRobles Grady SARS-CoV-2 (COVID-19) RNA RICHARD+probe Ql (Unsp spec) Not detected Normal NOT DETECTED [facility] Comment on above: Result Comment: This test is not yet approved or cleared by the [place] FDA. When there are no FDA-approved or cleared tests available, and other criteria are met, FDA can make tests available under an emergency access mechanism called an Emergency Use Authorization (EUA). The EUA for this test is supported by the [place] of Health and Human Service's (HHS's) declaration [...] consistent with SARS-CoV-2. Performed By: #### C VDTB ####[facility] [address] [place], [place] [address]YbxbklRobles Grady RAPID COVID-19 ANTIGENon EUA Statement SEE BELOW Normal [facility] Comment on above: Result Comment: This test [...] sooner. Performed By: #### C VDAG #### [facility] [address] [place], [place] [address] Robles Grady SARS-CoV-2 (COVID-19) RNA RICHARD+probe Ql (Unsp spec) Negative Normal NEGATIVE [facility] Comment on above: Result Comment: Nega tive results are presumptive. They do not preclude infection and should not be used as the sole basis for treatment decisions. Additional confirmatory testing by a molecular method should be considered. Performed By: #### C VDAG #### [facility] [address] [place], [place] [address] Robles Grady XR KNEE LT 4V or [...] JUDY BARAJAS Date: 2020-08-03 22:19 Normal [facility] US JAMIE DOP LEG LTon 07-29-19 21 [...] by: TERRA CRUZ Date: 2020-07-28 18:32 Normal [facility] XR TIB_FIB LT 2Von XR TIB_FIB [...] ABHI GRIFFIN Date: 2020-07-28 19:12 Normal [facility] Vital Signs Date Time Vital Sign Value Performing Clinician Facility 07-30-2024 10:04040 Body height 157.5 cm Veronica Beckmanrebekah SAAVEDRAFry MultimediaMULTI TOWNSHIP ASSESSOR Work Phone: [facility] 07-30-2024 10:04-0400 Body mass index (BMI) [Ratio] 46.88 kg/m2 Veronica Murrellrebekah SAAVEDRABluechilli Work Phone: [facility] 07-30-2024 10:04-040 Body temperature 98.91 [degF] Veronica Murrellrebekah SAAVEDRABluechilli Work Phone: [facility] 07-30-2024 10:04-040 Body weight 116.3 kg Veronica Murrellrebekah SAAVEDRABluechilli Work Phone: [facility] 07-30-2024 10:04-0400 Diastolic blood pressure 88 mm[Hg] Veronica Murrellrebekah SAAVEDRA-MULTI TOWNSHIP ASSESSOR Work Phone: [facility] 07-30-2024 10:04-0400 Heart rate 77 /min Veronica Murrell APRN-MULTI TOWNSHIP ASSESSOR Work Phone: [facility] 07-30-2024 10:04-0400 Respiratory rate 20 /min Veronica Murrell APRN-MULTI TOWNSHIP ASSESSOR Work Phone: [facility] 07-30-2024 10:04-0400 SaO2% (BldA) [Mass fraction] 97 % Veronica Murrell APRN-MULTI TOWNSHIP ASSESSOR Work Phone: [facility] 07-30-2024 10:04-0400 Systolic blood pressure 136 mm[Hg] Veronica Murrell APRN-MULTI TOWNSHIP ASSESSOR Work Phone: [facility] 06-19-2024 08:41-0400 Body height 157.5 cm Tobi Johnson SALES OUTFITTER-MULTI TOWNSHIP ASSESSOR Work Phone: [facility] 06-19-2024 08:41-0400 Body mass index (BMI) [Ratio] 47.98 kg/m2 Tobi Johnson SALES OUTFITTER-MULTI TOWNSHIP ASSESSOR Work Phone: [facility] 06-19-2024 08:41-0400 Body temperature 99.1 [degF] Tobi Johnson SALES OUTFITTER-MULTI TOWNSHIP ASSESSOR Work Phone: [facility] 06-19-2024 08:41-0400 Body weight 118.98 kg Tobi Johnson SALES OUTFITTER-MULTI TOWNSHIP ASSESSOR Work Phone: [facility] 06-19-2024 08:41-0400 Diastolic blood pressure 68 mm[Hg] Tobibell Johnson SALES OUTFITTER-MULTI TOWNSHIP ASSESSOR Work Phone: [facility] 06-19-2024 08:41-0400 Heart rate 82 /min Tobibell Johnson SALES OUTFITTER-MULTI TOWNSHIP ASSESSOR Work Phone: [facility] 06-19-2024 08:41-0400 Respiratory rate 18 /min Tobibell Johnson SALES OUTFITTER-MULTI TOWNSHIP ASSESSOR Work Phone: [facility] 06-19-2024 08:41-0400 SaO2% (BldA) [Mass fraction] 99 % Tobi Johnson SALES OUTFITTER-MULTI TOWNSHIP ASSESSOR Work Phone: [facility] 06-19-2024 08:41-0400 Systolic blood pressure 132 mm[Hg] Tobi Johnson SALES OUTFITTER-MULTI TOWNSHIP ASSESSOR Work Phone: [facility] 05-02-2023 14:27-0500 Body height 157.5 cm Jr. Stepanic DO Work Phone: [facility] 05-02-2023 14:27-0500 Body mass index (BMI) [Ratio] 42.43 kg/m2 Jr. Stepanic DO Work Phone: [facility] 05-02-2023 14:27-0500 Body weight 105.23 kg Jr. Stepanic DO Work Phone: [facility] Healthcare Encounters Encounter Date Encounter Type Care Provider Facility Start: 08-26-2024 End: 08-26-2024 Emergency department patient visit TOBI JOHNSON [facility] Start: 08-24-2024 End: 08-25-2024 Refill Tobi Johnson SALES OUTFITTER-MULTI TOWNSHIP ASSESSOR Work Phone: [facility] Start: 07-30-2024 End: 07-30-2024 Office outpatient visit 15 minutes Veronica Murrell SALES OUTFITTER-MULTI TOWNSHIP ASSESSOR Work Phone: [facility] Comment on above: Upper respiratory tr act infection, unspecified type (Primary Dx); Fever, unspecified fever cause; Acute cough Start: 07-30-2024 End: 07-30-2024 ambulatory [facility] Start: 07-12-2024 End: 07-12-2024 ambulatory Hyacinth Ellington RN [facility] Call Josuée r Start: 06-26-2024 End: 06-26-2024 Orders Only Tobi Briones Rauch SALES OUTFITTER-MULTI TOWNSHIP ASSESSOR Work Phone: [facility] Start: 06-19-2024 End: 06-19-2024 ambulatory [facility] Start: 06-19-2024 End: 06-19-2024 Office outpatient visit 25 minutes Tobi Johnson SALES OUTFITTER-MULTI TOWNSHIP ASSESSOR Work Phone: [facility] Comment on above: Anxiety (Primary Dx) ; Hypothyroidism due to acquired atrophy of thyroid; Mixed hyperlipidemia; Essential hypertension; Class 3 severe obesity due to excess calories with serious comorbidity and body mass index (BMI) of 45.0 to 49.9 in adult ([facility]); Restless leg syndrome; Encounter for screening mammogram for malignant neoplasm of breast Start: 06-19-2024 End: 06-19-2024 ambulatory [facility] Start: 05-28-2024 End: 05-30-2024 Refill Tobi Johnson SALES OUTFITTER-[employer]ESS[employer] Work Phone: [facility] Internal Medicine - Family Medicine Comment on above: Anxiety disorder, un specified Start: 05-02-2023 End: 05-02-2023 ambulatory BULMARO PETER Not Available Start: 05-02-2023 End: 05-02-2023 Follow-up encounter Jr. Bulmaro Benitez DO Work Phone: [facility] Comment on above: Acute pain of left k nee (Primary Dx); History of total knee arthroplasty, left Start: 05-02-2023 Chart abstracting Jr. Bulmaro Benitez DO Work Phone: [facility] Start: 04-27-2023 External Result Encounter Justyn CARDONA Work Phone: [facility] Unsolicited Start: 04-27-2023 External Result Encounter Justyn CARDONA Work Phone: [facility] Unsolicited Start: 04-13-2023 End: 04-14-2023 ambulatory JCARLOS LANGE Not Available Start: 06-06-2021 End: 06-07-[address] BULMARO BENITEZ Facility:[facility]1 Start: 01-03-2021 End: 01-04-[address] JCARLOS LANGE Facility:[facility] Start: 12-18-2020 End: 12-18-2020 ambulatory TOBI ALEX Facility:[facility]1 Start: 09-05-2020 Encounter for preprocedural cardiovascular examination JCARLOS HAYDEN [facility] Start: 09-05-2020 Encounter for preprocedural laboratory examination JCARLOS HAYDEN [facility] Start: 09-03-2020 End: 09-03-2020 ambulatory TOBI ALEX Facility:[facility]1 Start: 08-31-2020 End: 09-01-2020 ambulatory TOBI ALEX Facility:[facility]1 Start: 08-31-2020 End: 09-01-2020 Encounter for preprocedural cardiovascular examination TOBI ALEX Facility:[facility]1 Start: 08-17-2020 End: 11-30-2020 ambulatory JCARLOS CATRACHO Facility:[facility]1 Start: 08-06-2020 End: 08-07-2020 ambulatory TOBI ALEX Facility:[facility]1 Start: 08-04-2020 End: 08-05-2020 ambulatory TOBI ALEX Facility:H1 Start: 07-28-2020 End: 07-28-2020 ambulatory TOBI ALEX Facility:[facility]1 Procedures Date Procedure Procedure Detail Performing Clinician Start: 07-30-2024 POCT INFLUENZA A/INF LUENZA B/SARS-COV-2 VERITOR [facility] Work Phone: Start: 07-30-2024 Adult depression scr eening assessment Veronica Murrell SALES OUTFITTER-[facility] Work Phone: Start: 06-19-2024 Adult depression scr eening assessment Tobi Johnson SALES OUTFITTER-[facility] Work Phone: Start: 04-27-2023 C-reactive protein Justyn favian CARDONA Work Phone: Start: 03-22-2023 Adult depression scr eening assessment Tobi Johnson SALES OUTFITTER-[facility] Work Phone: Start: 10-20-2022 Microscopic observat ion [Identifier] in Cervix by Cyto stain Tobi Johnson SALES OUTFITTER-[facility] Work Phone: Plan of Treatment Date Care Activity Detail Author Start: 10-20-2025 Screening for malign ant neoplasm of cervix Pap Smear [facility] Start: 07-30-2025 Adult BMI Follow Up Plan Adult BMI Follow Up Plan [facility] Start: 07-30-2025 Adult BMI Screening Adult BMI Screen ing [facility] Start: 07-30-2025 Depression Screening Depression Scre ening [facility] Start: 07-30-2025 Tobacco Screening Tobacco Screening [facility] Start: 06-19-2025 Adult BMI Screening Adult BMI Screen ing [facility] Start: 06-19-2025 Depression Screening Depression Scre ening [facility] Start: 06-19-2025 Tobacco Screening Tobacco Screening [facility] Start: 11-24-2024 Influenza vaccination Influenza Vacc ine [facility] Start: 06-19-2024 End: 06-19-2025 DBT Breast - bilateral screening Mammography screening bilateral with CAD Imaging Routine Encounter for screening mammogram for malignant neoplasm of breast Expected: 06/19/2024, Expires: 06/19/2025 [facility] Comment on above: Expected: 06/19/2024 , Expires: 06/19/2025 Start: 06-19-2024 End: 06-19-2025 Lipid 1996 panel - Serum or Plasma [facility] Comment on above: Expected: 06/19/2024 (Approximate), Expires: 06/19/2025 Start: 03-22-2024 Adult BMI Screening Adult BMI Screen ing [facility] Start: 03-22-2024 Depression Screening Depression Scre ing [facility] Start: 03-22-2024 Tobacco Screening Tobacco Screening [facility] Start: 11-25-2023 Influenza vaccination Influenza Vacc ine [facility] Start: 10-21-2023 Adult BMI Follow Up Plan Adult BMI Follow Up Plan [facility] Start: 06-06-2023 End: 06-06-2023 Patient encounter procedure 06/06/2023 2:30 PM EDT Office Visit [facility] [address] [place] [id number] Jr. Bulmaro Benitez C, DO [address] [place] [address] [facility] Start: 05-02-2023 End: 05-02-2023 Patient encounter procedure 05/02/2023 2:30 PM EST Office Visit [facility] [address] [place] [id number] Jr. Bulmaro Benitez C, DO [address] [facility] [address] [place] [address] [facility] Start: 2014 Administration of varicella zoster vaccine Zoster (Shingles) Vaccine (1 of 2) [facility] Start: 12-22-1983 DTaP,Tdap and Td Vaccines (1 - Tdap) DTaP,Tdap and Td Vaccines (1 - Tdap) [facility] End: 06-19-2025 Comprehensive metabolic 2000 panel - Serum or Plasma Comprehensive metabolic panel Lab Routine Essential hypertension 1 Occurrences starting 06/19/2024 until 06/19/2025 [facility] Comment on above: 1 Occurrences starti ng 06/19/2024 until 06/19/2025 Comprehensive metabo lic 2000 panel - Serum or Plasma Comprehensive metabolic panel Lab Routine Essential hypertension 06/19/2024 6:14 PM EDT Q.ME End: 06-19-2025 Drug Screen, Urine Drug Screen, Urine Lab Routine Anxiety 1 Occurrences starting 06/19/2024 until 06/19/2025 [employer] Work Phone: Comment on above: 1 Occurrences starti ng 06/19/2024 until 06/19/2025 Drug Screen, Urine Drug Screen, Urine Lab Routine Anxiety 06/19/2024 6:15 PM EDT Q.ME End: 06-19-2025 Thyroid profile includes TSH FT4 Thyroid profile includes TSH FT4 Lab Routine Hypothyroidism due to acquired atrophy of thyroid 1 Occurrences starting 06/19/2024 until 06/19/2025 [facility] Comment on above: 1 Occurrences starti ng 06/19/2024 until 06/19/2025 Thyroid profile incl udes TSH FT4 Thyroid profile includes TSH FT4 Lab Routine Hypothyroidism due to acquired atrophy of thyroid 06/19/2024 6:14 PM EDT [facility] Payers Date Payer Category Payer Blue Cross Blue Shie ld Managed Care - Other ANTHEM [id number] 2017 Unknown BCBS BCBS [id number] 2017-Present [phone] [id number] [place], [place] [address] [id number] 1964 Unknown [id number] 2.16840.1.529581.3.579. 2. 1964 Unknown [id number] 2.16.840.1.472091.3.579. 2.593 1964 Unknown [id number] 2.16.840.1.958791.3.579. 2.59 1964 Unknown [id number] 2.16.840.1.921467.3.579. 2.593 1964 Unknown [id number] 2.16.840.1.977393.3.579. 2.59 1964 Unknown [id number] 2.16.840.1.019899.3.579. 2.593 1964 Unknown [id number] 2.16.840.1.385798.3.579. 2.59 1964 Unknown [id number] 2.16.840.1.277630.3.579. 2.593 1964 Unknown [id number] 2.16.840.1.627569.3.579. 2.593 1964 Unknown [id number] 2.16.840.1.679208.3.579. 2.1259 1964 Unknown [id number] 2.16.840.1.506792.3.579. 2.1259 1964 Unknown [id number] 2.16.840.1.925480.3.579. 2.1259 1964 Unknown [id number] 2.16.840.1.428101.3.579. 2.1286 1964 Unknown [id number] 2.16.840.1.933143.3.579. 2.1286 1964 Unknown [id number] 2.16.840.1.656237.3.579. 2.1286 1964 Unknown [id number] 2.16.840.1.002469.3.579. 2.1286 1959 Unknown [id number] Social History Date Type Detail Facility Start: 04-13-2023 Tobacco smoking stat [facility] Never smoked tobacco [facility] Start: 10-05-2022 End: 04-13-2023 Tobacco use and exposure Smokeless tobacco non-user [facility] Start: 05-06-2020 End: 04-13-2023 History of Social function [facility] Start: 05-06-2020 End: 04-13-2023 Tobacco use panel [facility] Start: 04-13-2023 Tobacco Comment PT VAPES [facility] Start: 1965 Sex Assigned At Not on file [facility] Start: 06-07-2022 Gender identity Identifies as female gender (finding) [facility] Start: 10-05-2022 Tobacco smoking stat [facility] Ex-smoker [facility] History of tobacco use Current smoker [facility] History of tobacco use Cigarette Smoker [facility] History of tobacco use Tobacco U se Types Packs/Day Years Used Date Smoking Tobacco: Former Cigarettes Vaping/E-cigarettes Smokeless Tobacco: Never [facility] Start: 03-22-2023 End: 07-30-2024 Alcoholic beverage intake Lifetime non-drinker (finding) [facility] Adolescent depressio n screening assessment 0 [facility] Start: 03-15-2015 Sex Female (finding) [facility] Clinical Notes 08-04-2020 to 07-30-2024 Veronica Murrell, QUENTIN-RADHA - 07/30/2024 10:00 AM EDTTelephone Encounter - Hyacinth Ellington RN - 07/12/2024 1:57 PM EDTTelephone Encounter - Deb Buckner RN - 07/12/2024 1:57 PM EDT Note Date & Type Note Facility 07-30-2024 History of Present illness Narrative Images from the original note were not included. [address] [facility] [id number] SUBJECTIVE: Patient ID: Angeles Ferrari is a 58 y.o. female. Onset [...] 11/03/2022 Performed by Bert Lopez DO at [facility] 03/26/2016 OF SPINE KNEE CARTILAGE [...] Thought content normal. Judgment: Judgment normal. ASSESSMENT/PLAN: Angeles was seen today for fever. Diagnoses and [...] - POCT Influenza A/Influenza B/SARS-COV-2 Veritor - dzmwdsghnzynalc-hywrwxsbt-VB 2-30-10 mg/5 mL syrup; Take 5 mL by mouth 4 (four) times a day as needed for allergies. POCT COVID and influenza is negative. Cool mist humidification for congestion, warm salt water gargles as needed for sore throat. Motrin or Tylenol as needed per dipping machine operator guidelines for fever or pain. Start Zpak [...] Rose 07/30/24 1031 documented in this encounter [facility] 07-12-2024 Miscellaneous Notes ----- Message from Debbie [...] used: No Contact or Duplicate Contact Call-A-AH documented in this encounter [facility] 07-12-2024 Telephone encounter Note ----- Message from Debbie sent at 07/12/2024 1:31 PM EDT ----- Ant quintanilla believes having allergc reaction to meds [facility] 07-12-2024 Telephone encounter Note Contract: 198 Spoke with patient- she voiced that the emergency room physician called in a different medication for her Patient no longer needing assistance Telephone triage not completed Reason for Disposition Caller has already spoken with the PCP and has no further questions. 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 Problem [...] (BMI) of 45.0 to 49.9 in adult ([facility]) Restless leg syndrome Encounter for screening mammogram [...] 11/03/2022 Performed by Bert Lopez DO at [facility] 03/26/2016 OF SPINE KNEE CARTILAGE [...] normal. Behavior: Behavior normal. Assessment and Plan: Angeles was seen today for controlled sub. Diagnoses [...] (BMI) of 45.0 to 49.9 in adult ([facility]) Restless leg syndrome Encounter for screening mammogram [...] APRN-CNP 06/19/24 1338 documented in this encounter [facility] 05-28-2024 Miscellaneous Notes Patient needs a wellness appointment she canceled last 3 appointments. She needs blood work for the medication she is taking. documented in this encounter [facility] 05-28-2024 Telephone encounter Note Patient needs a wellness appointment she canceled last 3 appointments. She needs blood work for the medication she is taking. [facility] 05-02-2023 History of Present illness Narrative Images from the original note were not included. HISTORY OF PRESENT ILLNESS: EST PT Angeles Ferrari is an 57 y.o. @ female. EST PT; MOST RECENT VISIT WITH JUSTYN- S/P LT TKA 06/16/21 (~1YR 11MO)- HERE FOR BONE SCAN RESULTS 04/28/23 [facility] RESULTS XRAY LT KNEE CHANGE 04/13/23 XRAY EXA 08/01/21 BONE SCAN 04/28/23 [facility] (SEDRATE/CRP) 04/28/23 [facility]. NOTES GOOD DAYS AND BAD - TODAY [...] Bulmaro Benitez Jr., documented in this encounter [facility] 09-03-2020 Note OPERATIVE NOTE OPERATION DATE: 09-03-20 [...] needle, sponge, and instrument counts were correct. [facility] Signed and Approved by: JCARLOS HAYDEN 09/09/2020 10:36:00 [facility] 08-04-2020 Note CONSULTATION Consultation Date: 08-05-20 CHIEF COMPLAINT: Left knee pain, inability to bear weight. HISTORY OF PRESENT ILLNESS: This is a 54 year-old female who presented to the ER at [facility] with inability to bear weight and significant [...] be discharged home today by the hospitalist. [facility] Signed and Approved by: JCARLOS HAYDEN 08/09/2020 12:01:00 [facility] Evaluation note Diagnosis Acute pain of left knee- Primary History of total knee arthroplasty, left [facility] Diagnosis Anxiety disorder, unspecified [facility] Diagnosis Anxiety- Primary Anxiety state, unspecified Hypothyroidism due to acquired atrophy of thyroid Mixed hyperlipidemia Essential hypertension Unspecified essential hypertension Class 3 severe obesity due to excess calories with serious comorbidity and body mass index (BMI) of 45.0 to 49.9 in adult ([facility]) Restless leg syndrome Restless legs syndrome (RLS) Encounter for screening mammogram for malignant neoplasm of breast documented [facility] Diagnosis Upper respiratory tract infection, unspecified type- Primary Fever, unspecified fever cause Acute cough [facility] filed[facility] in [facility] filedocumented in this encounter [facility] filedocumented in this encounter [facility] filedocumented in this encounter [facility]* Attachments The following attachments cannot be sent through Care Everywhere. * Upper respiratory infection in adults ED discharge instructions (Bhutanese) [facility] Purpose Family History No [...] DATE CREATED AUTHOR AUTHOR'S ORGANIZ ATION 05/03/2023 [facility] EPIC DATE CREATED AUTHOR AUTHOR'S ORGANIZ ATION 06/21/2024 [facility] DATE CREATED AUTHOR AUTHOR'S ORGANIZ ATION 08/01/2024 [facility] DATE CREATED AUTHOR AUTHOR'S ORGANIZ ATION 08/27/2024 [facility] Care Teams (unrecognized sec tion and content) Carton Liner Relationship Specialty Start Date End Date Bert Lopez MD [address] [place] [address] PCP - General Internal Medicine 04/13/23 Tobi Johnson MD [address] [place] [address] Referring Physician Family Medicine 04/13/23 Carton Liner Relationship Specialty Start Date End Date Bert Lopez MD [address] [place] [address] PCP - General Internal Medicine 04/13/23 Tobi Johnson MD [address] [place] [address] Referring Physician Family Medicine 04/13/23 Carton Liner Relationship Specialty Start Date End Date Tobi Johnson SALES OUTFITTER-MULTI [employer]OWNSHIP ASSESSOR [address] [place] [address] PCP - General Internal Medicine 05/17/21 Carton Liner Relationship Specialty Start Date End Date Tobi Johnson SALES OUTFITTER-[employer] ASSESSOR [address] [place] [address] PCP - General Internal Medicine 05/17/21 Carton Liner Relationship Specialty Start Date End Date Tobi Johnson SALES OUTFITTER-[employer] ASSESSOR [address] [place] [address] PCP - General Internal Medicine 05/17/21 Carton Liner Relationship Specialty Start Date End Date Tobi Johnson SALES OUTFITTER-[employer]IP ASSESSOR [address] [place] [address] PCP - General Internal Medicine 05/17/21 Carton Liner Relationship Specialty Start Date End Date Tobi JohnsonQUENTIN-MULTI TOWNSHIP ASSESSOR [address] [place] [address] PCP - General Internal Medicine 05/17/21 Carton Liner Relationship Specialty Start Date End Date Tobi JohnsonQUENTIN-MULTI TOWNSHIP ASSESSOR [address] [place] [address] PCP - General Internal Medicine 05/17/21 Reason [...] BE BASED ON THE PRIMARY CLINICAL RECORDS. [facility]. provides no warranty or guarantee of the accuracy or completeness of information in this document.
--- NOTE | 2025-01-11 19:33 | ED.SKABFB1 ---
HPI - Skin/Abscess/Foreign Bdy General Chief complaint: Skin/Abscess/Foreign Body Stated complaint: INJURY TO MOLE ON BACK Time Seen by Provider: 01/11/25 19:28 History of Present Illness HPI narrative: skin tag left lower back. States her dog scratched it 2-3 days ago and now it is sore. She recently had dental procedure and is on amoxicillin. no fever or chills. Feels the skin tag look worse Related Data Home Medications ?Medication ?Instructions ?Recorded ?Confirmed levothyroxine 137 mcg tablet 137 mcg PO DAILY 01/04/23 01/11/25 paroxetine HCl 40 mg tablet 40 mg PO DAILY 01/04/23 01/11/25 ropinirole 3 mg tablet 3 mg PO DAILY 01/04/23 01/11/25 amoxicillin 500 mg capsule 500 mg PO Q8H 01/11/25 01/11/25 chlorhexidine gluconate 0.12 % 1 applic PO QDAY 01/11/25 01/11/25 mouthwash clindamycin HCl 300 mg capsule 300 mg PO TID 01/11/25 01/11/25 Allergies Allergy/AdvReac Type Severity Reaction Status Date / Time ciprofloxacin (From Cipro) Allergy Intermediate Hives Verified 01/11/25 19:28 metronidazole (From Flagyl) Allergy Intermediate Hives Verified 01/11/25 19:28 Review of Systems ROS Status of ROS 10 or more systems reviewed and unremarkable except as noted in history and below PFSH PFSH Social History Little interest or pleasure in doing things: not at all Feeling down, depressed, or hopeless: not at all Exam Constitutional Vital Signs, click to edit/add: Last Vital Signs Temp 98.6 F 01/11/25 19:28 Pulse 111 H 01/11/25 19:28 Resp 18 01/11/25 19:28 BP 150/95 H 01/11/25 19:28 Pulse Ox 93 L 01/11/25 19:28 O2 Del Method Room Air 01/11/25 19:28 Common normals: no apparent distress, average body habitus, oriented x3, no limitations, healthy appearing, alert and well nourished [facility] Common normals: normocephalic and head/scalp atraumatic Eye Common normals: EOMs intact bilaterally and conjunctivae normal Respiratory Common normals: normal respiratory effort, no retractions, no use of accessory muscles and clear to auscultation bilaterally Cardio Common normals: regular rate, regular rhythm, S1 normal heart sound and S2 normal heart sound Back & Pelvis Back image (female):  1. inflamed skin tag Extremity Common normals: normal to inspection and full ROM Neuro Common normals: oriented x3, CN's II-XII intact bilaterally, moves all extremities and no focal motor deficits Psych Appearance: grossly normal Course Vital Signs Vital signs: Vital Signs Temperature 98.6 F 01/11/25 19:28 Pulse Rate 111 H 01/11/25 19:28 Respiratory Rate 18 01/11/25 19:28 Blood Pressure 150/95 H 01/11/25 19:28 Pulse Oximetry 93 L 01/11/25 19:28 Oxygen Delivery Method Room Air 01/11/25 19:28 Temperature 98.6 F 01/11/25 19:28 Pulse Rate 111 H 01/11/25 19:28 Respiratory Rate 18 01/11/25 19:28 Blood Pressure 150/95 H 01/11/25 19:28 Pulse Oximetry 93 L 01/11/25 19:28 Oxygen Delivery Method Room Air 01/11/25 19:28 MDM - Skin/Abscess/Foreign Bdy MDM Narrative Medical decision making narrative: skin tag lower back that was scratched by her PET 2-3 days ago. Now is more sore. Exam finds the base with small amount of exudate and surrounding erythema. tip of the tag is dark and appears necrotic. Patient informed of the infection/inflamation at this site. she is on Amoxillin for recent dental work. Will change antibiotic to clindamycin and have her follow up with her doctor. . She requested to have it removed but prefer to remove it once it is no longer inflamed/infected Discharge Plan Discharge Chief Complaint: Skin/Abscess/Foreign Body Clinical Impression: Cellulitis Patient Disposition: Home, Self-Care Mode of Transportation: Private Vehicle Prescriptions / Home Meds: No Action ropinirole 3 mg tablet 3 mg PO DAILY paroxetine HCl 40 mg tablet 40 mg PO DAILY levothyroxine 137 mcg tablet 137 mcg PO DAILY amoxicillin 500 mg capsule 500 mg PO Q8H chlorhexidine gluconate 0.12 % mouthwash 1 applic PO QDAY clindamycin HCl 300 mg capsule 300 mg PO TID Patient Comments: Started on 01/11/25 in ER Print Language: Mongolian Instructions: Cellulitis (ED) Additional Instructions: change to new antibiotic and follow up with your doctor this week for recheck Referrals: TOBI JOHNSON [Primary Care Provider, Unknown] - 1 week
--- OUTSIDE RECORDS SUMMARY | 2025-01-11 19:33 | XMS_ITS | Clinical Summary ---
Author Organization [facility] Healthcare Address [address] [place] [address] Care Team Providers Care Coater Operator Name Role Phone Starr Solorio MD Unavailable Bert Lopez MD Primary Care Provider [phone] Allergies No known active allergies Medications levothyroxine [...] Not on file Insurance BCBS Care Teams Coater Operator Relationship Specialty Start Date End Date Bert Lopez MD PCP - General Internal Medicine 04/13/23 Starr Solorio MD Referring Physician Family Medicine 04/13/23
[2025-01-11] MEDS: CLINDAMYCIN HCL 150 MG CAPSULE 300 MG PO (19:47)
== END 2025-01-11 19:54 | disposition home or self-care (01) ==
PROVIDERS: Emergency Provider Internal Medicine; PCP Nurse Practitioner Family
DX: L03.312 Cellulitis of back [any part except buttock and flank] (principal)
CPT/HCPCS: 99283